=== PATIENT | female | born 1940 | race Caucasian/White ===

== ENCOUNTER → 2017-12-18 15:38 | Outpatient (CLI) | payer MEDICARE, OTHER, SELFPAY ==
[2017-12-18 17:53] LABS: Amphetamine Urine VISTA NEGATIVE (<1000 ng/mL); Barbiturate Urine VISTA NEGATIVE (< 200 ng/mL); Benzodiazepine Urine VISTA NEGATIVE (< 200 ng/mL); Cocaine Urine VISTA NEGATIVE (< 300 ng/mL); Ecstacy Urine VISTA NEGATIVE (< 500 ng/mL); Methadone Urine VISTA NEGATIVE (< 300 ng/mL); PCP Urine VISTA NEGATIVE (< 25 ng/mL); THC Urine VISTA NEGATIVE (< 50 ng/mL); Vista UDS pH Range 8
== END ==
PROVIDERS: Family Provider Family Medicine; PCP Family Medicine; Visit Provider Anesthesiology Pain Medicine
DX: F11.20 Opioid dependence, uncomplicated (principal)
CPT/HCPCS: 80307

== ENCOUNTER → 2018-01-15 15:54 | Outpatient (CLI) | payer MEDICARE, OTHER, SELFPAY ==
[2018-01-15 17:55] LABS: Amphetamine Urine VISTA NEGATIVE (<1000 ng/mL); Barbiturate Urine VISTA NEGATIVE (< 200 ng/mL); Benzodiazepine Urine VISTA NEGATIVE (< 200 ng/mL); Cocaine Urine VISTA NEGATIVE (< 300 ng/mL); Ecstacy Urine VISTA NEGATIVE (< 500 ng/mL); Methadone Urine VISTA NEGATIVE (< 300 ng/mL); PCP Urine VISTA NEGATIVE (< 25 ng/mL); THC Urine VISTA NEGATIVE (< 50 ng/mL); Vista UDS pH Range 8
== END ==
PROVIDERS: Family Provider Family Medicine; PCP Family Medicine; Visit Provider Anesthesiology Pain Medicine
DX: F11.20 Opioid dependence, uncomplicated (principal)
CPT/HCPCS: 80307

== ENCOUNTER → 2018-04-27 17:06 | Outpatient (CLI) | payer MEDICARE, OTHER, SELFPAY | PROVIDERS: Family Provider Family Medicine; PCP Family Medicine; Visit Provider Anesthesiology Pain Medicine | DX: M54.2 Cervicalgia (principal) | CPT/HCPCS: 72040; 72050 ==

== ENCOUNTER 2018-10-04 08:27 | Inpatient (IN) | payer MEDICARE, OTHER, SELFPAY ==
[2018-10-04] VITALS (12 sets, daily range): BP systolic 154–171; BP diastolic 78–121; PULSE 65–123; RESP 15–17; TEMP 36.3–37; O2SAT 94–98; BMI 22.8; BMI 21.0
--- NOTE | 2018-10-04 08:55 | ED.VISSUMM ---
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 chronic nasal congestion for 2 weeks and a slight cough, history of renal failure resolved in January 2018 related to the use of Celebrex now she states she is not on dialysis she is making normal amounts of urine, she has had no fever no chest or abdominal pain no numbness weakness paresthesias, also reports that he feels she is losing weight because she simply will need the patient states she is not hungry with no antibiotics no history of exposure to tainted food sick individuals or antibiotics Physical Examination: [] v signs are within normal range General, no distress resting comfortably HEENT is generally unremarkable her nose is congested The neck is supple no adenopathy Cardiovascular, regular rate and rhythm Lungs, clear bilateral Abdomen, soft nontender Extremities, no clubbing cyanosis or edema Neurologic, awake alert answering questions appropriately moving all 4 extremities Test Results: [] Emergency Department Course and Treatment: [] Really has an unremarkable exam she has no specific complaints given her age and her complaints screening labs are obtained IV fluids she is having no diarrhea now she does not believe she can provide a stool sample Treatment Plan: [] His white count 14,000, her potassium 2.9, her calcium returns at 5.4, her magnesium returns at 0.5 she received IV fluids, she is resting company bed she states she is feeling better I discussed all the above with the patient and her we discussed if she has a history of electrolyte abnormalities she indicates she does not believe so other than to report she is had high potassiums in the past, she again is feeling better I discussed with her inpatient versus outpatient management she does not wish to be admitted to the hospital she wants to go home she prefers outpatient management, I gave her a trial of oral electrolyte supplementation which she took without difficulty and then as an additional measure she received IV calcium 2 g, magnesium 2 g and have explained to the need to follow with her outpatient providers to have all the above checked and she states she will do so, with regards to the diarrhea she has had no significant symptoms here in the department she will stay in a bland diet and follow-up with her physicians for that process as well Disposition: [] Home stable declined admission Impression: [] Diarrhea improved, multiple electrolyte abnormalities, history of renal failure resolved no longer on dialysis Addendum while the patient was receiving her IV replacement electrolytes she went into a heart rate about 110, appeared irregular, EKG was obtained and showed A. fib rate 90 she has no known history of A. fib she has seen Dr. Wylie german instructor in the [facility] and indicates she is never been told she has any significant heart disease Given what might be paroxysmal A. fib in the multiple elect light abnormalities I discussed admission with her again she is now agreeable to being admitted for further management of all the above conditions, I will page the hospitalist discussed the case with them To add to final diagnosis paroxysmal atrial fibrillation This note was generated with [employer] dictation software. It may contain incorrect words, spelling, and punctuation that were not noted in review of the chart prior to signing ED Disposition - Plan for ED Patient: Instructions: Discharge Instructions for Hypocalcemia, ED Gastroenteritis Vs Food Poison Prescriptions: Mag Oxide/D3/Turmeric Rt Xt [Magnesium-Vit D3-Turmeric Tab] 1 ea PO DAILY #14 tab Calcium Carbonate/Vitamin D3 [Calcium 500 mg-Vit D3 600 Unit] 1 ea PO BID #14 tab Referrals: Angel Casey [Primary Care Provider] - Additional Instructions: These follow-up with all of your outpatient providers related to the low calcium and low magnesium minerals and your blood return for change in symptoms, a vitamin D level was ordered it is not returned ask your providers to check this level as well
[2018-10-04] MEDS: 0.9% Normal Saline 1,000 ML 125 ML IV (09:02)
--- NOTE | 2018-10-04 09:02 | RAD_ITS ---
STUDY: X-RAY CHEST REASON FOR EXAM: Female, 77 years old. Diarrhea x3 days. TECHNIQUE: AP upright portable view. COMPARISON: 05/17/2016. FINDINGS: The lungs are clear and expanded. There is no demonstrated pleural abnormality. Normal size heart. Normal mediastinum and karly. Normal visualized pulmonary arteries. Normal visualized aortic arch and descending thoracic aorta. PMMA cast across the upper T12 compression fracture is presumably from previous kyphoplasty. Normal visualized ribs, clavicles, and shoulders. There is no demonstrated abnormality of the visualized soft tissue structures of the upper abdomen. RAD/Chest 1 View IMPRESSION: 1. No acute cardiopulmonary pathology. 2. Old compression fracture of the upper T12 vertebral body containing PMMA cast from previous kyphoplasty is a new finding when compared to 05/17/2016. Electronically Signed: Andrea Nguyen MD at 9:27 EST , Service support ,
[2018-10-04 09:13] LABS: Bacteria 0 SEEN /hpf (None Seen); Mucous, Urine 0 SEEN /hpf (<or=2+); Red Blood Cells-Urine 0 SEEN /hpf (0-5); White Blood Cells 0 SEEN /hpf (0-5)
[2018-10-04 09:15] LABS: Absolute Lymphocyte Count 1.58 X10^3/ul (0.83-4.51); Absolute Neutrophil Count 11.5 X10^3/uL (2.0-7.7); Basophil# 0.05 X10^3/uL; Basophil% 0.4 % (0-1); Eosinophil# 0.11 X10^3/uL; Eosinophils% 0.8 % (0-5); Hematocrit 34.6 % (37-47); Hemoglobin 10.8 g/dl (12.0-15.0); Lymphocyte # 1.58 X10^3/ul (4.0); Lymphocyte % 11.2 % (19-41); Mean Corp Hgb Conc 31.2 g/gl (32-36); Mean Corpuscular Hgb 30.7 pg (27.0-32.0); Mean Corpuscular Volume 98.3 fL (81-99); Mean Platelet Vol. 9.9 fl (6.2-12.0); Monocyte% 5.7 % (0-10); Neutrophil # 11.49 X10^3/uL (2.7-7.7); Neutrophil % 81.1 % (47-70); POSITIVE COUNT NO; POSITIVE DIFFERENTIAL NO; POSITIVE MORPHOLOGY NO; Platelet Count 409 K/mm3 (150-450); RBC Distribution Width CV 12.4 % (11.6-14.6); RBC Distribution Width SD 44.1 fl (35.1-43.9); Red Blood Count 3.52 M/mm3 (4.2-5.4); White Blood Count 14.2 K/mm3 (4.4-11.0)
[2018-10-04 09:32] LABS: AST(SGOT) 22 U/L (15-37); Alanine Aminotransfer ALT/SGPT 16 U/L (13-56); Albumin, Serum 2.5 g/dL (3.2-5.0); Alkaline Phosphatase 72 U/L (45-117); Anion Gap 17 (5-15); BUN 40 mg/dL (7-18); BUN/Creat Ratio 12.5 RATIO (10-20); Calcium,Total 5.4 mg/dL (8.5-10.1); Chloride 115 mmol/L (98-107); EST Glomerular Filtration Rate 15 mL/min (>60); Est Glom Filt Rate - Afr Amer 18 mL/min (>60); Estimated Creatinine Clearance 11.52 ml/min; Globulin 4.7 g/dL (2.2-4.2); Glucose 129 mg/dL (74-106); Lipase 599 U/L (73-393); Potassium 2.9 mmol/L (3.5-5.1); Protein, Total 7.2 g/dL (6.4-8.2); Sodium Level 146 mmol/L (136-145)
[2018-10-04 09:33] LABS: Color, Urine Yellow (Yellow); Glucose, Dipstick Normal (Normal); Ketone-Dipstick Negative (Negative); Leukocyte Esterase-Dipstick 100 /ul (Negative); Nitrite-Dipstick Negative (Negative); Occult Blood-Urine 25 /ul (Negative); Protein-Dipstick 100 mg/dl (Negative); Urine Bilirubin Dipstick Negative (Negative); Urine Clarity Clear (Clear); Urine Urobilinogen Normal (Normal)
[2018-10-04 09:34] LABS: Squamous Epithelial Cells - UA 0-5 SEEN /hpf (5-10)
[2018-10-04] MEDS: Calcium Carbonate 500 MG Tablet 1000 MG PO (10:10)
[2018-10-04 10:23] LABS: Magnesium 0.5 mg/dL (1.6-2.6)
[2018-10-04] MEDS: LORazepam 0.5 MG Tablet PO (10:56)
[2018-10-04] MEDS: Magnesium Oxide 400 MG Tablet PO ×2 (10:56→17:09)
--- NOTE | 2018-10-04 11:09 | ED.DEP ---
ED Disposition - Plan for ED Patient: Instructions: ED Gastroenteritis Vs Food Poison, Discharge Instructions for Hypocalcemia Prescriptions: Mag Oxide/D3/Turmeric Rt Xt [Magnesium-Vit D3-Turmeric Tab] 1 ea PO DAILY #14 tab Calcium Carbonate/Vitamin D3 [Calcium 500 mg-Vit D3 600 Unit] 1 ea PO BID #14 tab Referrals: Angel Casey [Primary Care Provider] - Additional Instructions: These follow-up with all of your outpatient providers related to the low calcium and low magnesium minerals and your blood return for change in symptoms, a vitamin D level was ordered it is not returned ask your providers to check this level as well
--- NOTE | 2018-10-04 11:56 | EKG12_ITS ---
Test Reason : IRREGULAR HR Blood Pressure : / mmHG Vent. Rate : 087 BPM Atrial Rate : 105 BPM P-R Int : 000 ms QRS Dur : 074 ms QT Int : 424 ms P-R-T Axes : 000 -34 041 degrees QTc Int : 510 ms Normal sinus rhythm with Premature atrial complexes Left axis deviation Prolonged QT Abnormal ECG Confirmed by ZAYRA FERREIRA, GRACE ([id number]), subeditor SHIV LEARY ([id number]) on 10/07/2018 1:39:07 PM Referred By: WILLI Confirmed By:GRACE IVERSON MD
--- NOTE | 2018-10-04 13:03 | PCM.HP.STD ---
Problem List (1) Generalized weakness Status: Acute (2) Nausea & vomiting Status: Acute Qualifiers: Vomiting type: unspecified Vomiting Intractability: non-intractable Qualified Code(s): R11.2 - Nausea with vomiting, unspecified (3) End stage renal disease Status: Chronic (4) Hypertension Status: Chronic (5) Osteoarthritis Status: Chronic History of Present Illness Date of Admission: 10/04/18 Chief Complaint: Generalized weakness The patient is a 77 year old F past medical history significant for end-stage renal disease previously on dialysis taking off following improvement in her kidney function, who presents with 2-week history of progressive generalized weakness. Patient reports feeling sick with intermittent nausea and vomiting as well as diarrhea over the past 2-week.. Patient who was with her in the emergency department confirmed the above. Patient has apparently not been able to ambulate. In view of the progressive nature of her symptoms presented to the emergency department. Patient was found to have significant electrolyte abnormalities including hypomagnesemia, hypokalemia as well as hypocalcemia. Was being resuscitated in the emergency department patient went into A. fib with RVR. Past Medical History Past Medical History (Chronic Problems): Chronic Problems Osteoarthritis (Chronic) Hypertension (Chronic) End stage renal disease (Chronic) Allergies amoxicillin [Amoxicillin] Allergy (Verified 10/04/18 09:02) Other celecoxib [From Celebrex] Allergy (Verified 10/04/18 09:02) Low red blood cells Penicillins Allergy (Verified 10/04/18 09:02) Other aspirin Adverse Reaction (Verified 10/04/18 09:02) Other codeine Adverse Reaction (Verified 10/04/18 09:02) Other Home Medications: Ambulatory Orders Medication Instructions Recorded B Complex W-C No.20/Folic Acid 1 mg PO DAILY 06/15/14 [Triphrocaps Softgel] Omeprazole [Prilosec] 20 mg PO DAILY 06/16/14 Simvastatin [Zocor] 20 mg PO QHS 06/16/14 Azelastine HCl [Astelin] 1 spray NASAL BID 07/30/15 Oxycodone HCl/Acetaminophen 1 tablet PO BID PRN PRN 07/30/15 [Percocet 10-325 mg Tablet] traZODone [Desyrel] 50 mg PO QHS 07/30/15 Albuterol Inhaler [Ventolin Hfa] 2 puff INHALATION Q4H PRN PRN #1 05/17/16 inhaler Calcium Acetate 667 mg PO TID 10/04/18 Calcium Carbonate/Vitamin D3 1 ea PO BID #14 tab 10/04/18 [Calcium 500 mg-Vit D3 600 Unit] Clonidine HCl [Catapres] 0.1 mg PO QHS 10/04/18 Denosumab [Prolia] 60 mg SQ X1 10/04/18 Ipratropium [place] 0.06% 2 spray NASAL DAILY 10/04/18 [ATROVENT NASAL SPRAY (g)] Mag Oxide/D3/Turmeric Rt Xt 1 ea PO DAILY #14 tab 10/04/18 [Magnesium-Vit D3-Turmeric Tab] Surgical History: hysterectomy, - - Fistula placed in left arm bilateral knee replacements Psychiatric History: Anxiety INFORMATION SECURITY ARCHITECT History: No pertinent INFORMATION SECURITY ARCHITECT history Smoking Status: Never smoker - *Family History Maternal History Items: - - of old age Paternal History Items: - - of old age Review of Systems Constitutional: Reports: Anorexia, Malaise, Weakness, Fatigue HEENT: Denies: Head Aches, Sinus Congestion, Sinus Drainage Cardiovascular: Denies: Chest Pain, Orthopnea, Palpitations, Paroxysmal Noc. Dyspnea Respiratory: Denies: Cough, Shortness of breath at rest, Shortness of breath upon exertion, Sputum production Gastrointestinal: Reports: Diarrhea, Nausea, Vomiting Genitourinary: Denies: Dysuria, Frequency, Hematuria, Urgency Musculoskeletal: Reports: Joint Pain Neurological: Denies: Focal weakness, Numbness, Tingling Psychiatric: Denies: Homicidal Ideations, Suicidal Ideations Hematologic/ Lymphatic: Denies: Easy Bruising, Easy Bleeding VTE Information - Inpt Only VTE Present on Admission: No VTE Mechan Device Prophylaxis: None VTE Pharm Prophylaxis ordered?: Yes Objective: GENERAL: cooperative HEENT: Atraumatic; moist oral mucosa EYES; Anicteric, Normal Conjunctiva NECK; supple, normal thyroid, no distended JVD. RESPIRATORY: Diminished to auscultation bilaterally, CARDIOVASCULAR: Regular S1 S2, no audible murmurs GI: soft, non-tender, normoactive bowel sounds, : No Renal angle tenderness; EXTREMITIES: No edema, no clubbing, no cyanosis. MUSCULOSKELETAL: No Joint Tenderness; no muscle waisting NEURO: Awake; no lateralizing signs. SKIN: No Rash PSYCH; Normal affect - Physical Exam Vital Signs Temp Pulse Resp BP Pulse Ox 97.7 F L 87 17 161/103 H 96 10/04/18 12:00 10/04/18 12:00 10/04/18 12:00 10/04/18 12:00 10/04/18 12:00 Oxygen Delivery Method Room Air Weight: 49.579 kg Body Mass Index (BMI) 22.8 Microbiology Past 72 Hours 10/04/18 09:55 C. difficile DNA Amplification - Final Stool Laboratory Tests Past 24 Hrs 10/04/18 10/04/18 10/04/18 09:00 09:00 09:00 WBC 14.2 H RBC 3.52 L Hgb 10.8 L Hct 34.6 L MCV 98.3 MCH 30.7 MCHC 31.2 L RDW 12.4 RDW Differential 44.1 H Plt Count 409 MPV 9.9 Immature Gran % (Auto) 0.800 Neut % (Auto) 81.1 H Lymph % (Auto) 11.2 L [place] % (Auto) 5.7 Eos % (Auto) 0.8 Baso % (Auto) 0.4 Absolute Neuts (auto) 11.5 H Absolute Lymphs (auto) 1.58 Total Counted Not Reportable Sodium 146 H Potassium 2.9 L Chloride 115 H Carbon Dioxide 14.0 L Anion Gap 17 H BUN 40 H Creatinine 3.20 H Estim Creat Clear Calc 11.52 Est GFR (MDRD) Af Amer 18 L Est GFR (MDRD) Non-Af 15 L BUN/Creatinine Ratio 12.5 Glucose 129 H Calcium 5.4 L* Magnesium 0.5 L* Total Bilirubin 0.20 Direct Bilirubin 0.10 AST 22 ALT 16 Alkaline Phosphatase 72 Total Protein 7.2 Albumin 2.5 L Globulin 4.7 H Lipase 599 H Vit D 1,25-Dihydroxy Urine Color Urine Clarity Urine pH Ur Specific [place] Urine Protein Urine Glucose (UA) Urine Ketones Urine Occult Blood Urine Nitrite Urine Bilirubin Urine Urobilinogen Ur Leukocyte Esterase Urine RBC Urine WBC Ur Squamous Epith Cells Urine Bacteria Urine Mucus 10/04/18 10/04/18 09:05 11:23 WBC RBC Hgb Hct MCV MCH MCHC RDW RDW Differential Plt Count MPV Immature Gran % (Auto) Neut % (Auto) Lymph % (Auto) [place] % (Auto) Eos % (Auto) Baso % (Auto) Absolute Neuts (auto) Absolute Lymphs (auto) Total Counted Sodium Potassium Chloride Carbon Dioxide Anion Gap BUN Creatinine Estim Creat Clear Calc Est GFR (MDRD) Af Amer Est GFR (MDRD) Non-Af BUN/Creatinine Ratio Glucose Calcium Magnesium Total Bilirubin Direct Bilirubin AST ALT Alkaline Phosphatase Total Protein Albumin Globulin Lipase Vit D 1,25-Dihydroxy Pending Urine Color Yellow Urine Clarity Clear Urine pH 6.0 Ur Specific [place] 1.010 Urine Protein 100 H Urine Glucose (UA) Normal Urine Ketones Negative Urine Occult Blood 25 H Urine Nitrite Negative Urine Bilirubin Negative Urine Urobilinogen Normal Ur Leukocyte Esterase 100 H Urine RBC 0 SEEN Urine WBC 0 SEEN Ur Squamous Epith Cells 0-5 SEEN Urine Bacteria 0 SEEN Urine Mucus 0 SEEN Assessment/Plan All Active Problems Nausea & vomiting (Acute) Generalized weakness (Acute) 87-year-old lady with multiple comorbidities presented with progressive generalized weakness found to have significant electrolyte abnormalities including hypokalemia hypomagnesemia hypocalcemia and worsening of her kidney function. Went into A. fib with RVR in the ED admitted to monitored bed for subsequent management 1. New onset A. fib with RVR. Patient has been admitted to a monitored bed. As part of her management 2D echo was ordered in addition to serial cardiac enzymes and TSH. Patient was started on systemic anticoagulation. [id number] 2 score is greater than 2(3) is therefore a candidate for long-term systemic anticoagulation to prevent strokes 2. Adult failure to thrive: Admitted to a monitored bed in view of above reasons requested for PT OT and social media executive to assist with discharge planning 3. End-stage renal disease patient was previously on chronic dialysis which was discontinued in view of improvement of her kidney function her baseline creatinine on record from 2014 was patient currently being resuscitated with IV fluids with monitoring of electrolyte 4. Hypokalemia from her chronic diarrhea repleted per protocol 5. Hypomagnesemia corrected per protocol 6. Hypocalcemia corrected per protocol 7. Severe generalized osteoarthritis pain meds as needed 8. Osteoporosis patient is Denosumab above every 6 monthly 9. Dyslipidemia-patient is on statin therapy, continued at home dose 10. Hypertension-blood pressure controlled, home medications continued with dose adjustment as needed 11. Depression with anxiety on trazodone at night 12. DVT prophylaxis on systemic anticoagulation for management of her new onset A. fib Advance planning; did discuss with the patient and family again () regarding advanced directives as well as CODE STATUS. Did explain the various scenarios involved ( FULL CODE, DNR CCA, DNR CCA with no intubation, and DNR CC and what each meant) patient elected to be DNR CCA no intubation. Order was placed. Time spent on discussion 18 minutes. Code Visit Inpatient E&M: 92145 Init Hosp L3 Procedures: 06404 Advncd Care Plan 30 Min
--- NOTE | 2018-10-04 13:59 | ECHOD_ITS ---
Reason For Study: Afib/Flutter Procedure This was a 2D Doppler, Color Flow transthoracic echocardiogram. Exam performed portable in patient room. Left Ventricle Normal LV size. Left ventricular systolic function is normal. The estimated ejection fraction is 60 %. Stage 1 diastolic dysfunction. No regional wall motion abnormalities noted. Right Ventricle Normal RV size. Normal systolic function. Atria Normal left atrium. Normal right atrium. Mitral Valve Normal mitral valve. Mild (1+) eccentric mitral valve insufficiency. Tricuspid Valve Normal tricuspid valve. Mild (1+) tricuspid valve insufficiency. Pulmonary artery systolic pressure is 28 mmHg. Aortic Valve Trisinus/trileaflet aortic valve. Mild focal aortic valve calcification. Pulmonic Valve Normal pulmonic valve. Great Vessels Normal aortic root. The pulmonary artery is normal size. Normal inferior vena cava. Pericardium/Pleural No pericardial effusion. MMode/2D Measurements & Calculations LVIDd: 4.2 cm IVSd: 1.2 cm Ao root diam: 3.7 cm LVIDs: 2.1 cm LVPWd: 0.94 cm LA dimension: 3.0 cm RVDd: 3.1 cm FS: 49.2 % LAV(MOD-sp2): 46.2 ml Time Measurements MV dec time: 0.27 sec Doppler Measurements & Calculations MV E max andry: 82.7 cm/sec Lat Peak E' Andry: 11.4 cm/sec Med Peak E' Andry: 7.2 cm/sec MV A max andry: 108.0 cm/sec E/E' lat: 7.3 E/E' med: 11.4 MV E/A: 0.77 MV V2 max: 117.0 cm/sec MV P1/2t max andry: 103.4 cm/sec Ao V2 max: 133.3 cm/sec MV max P.5 mmHg MV P1/2t: 63.1 msec Ao max P.1 mmHg MV V2 mean: 73.1 cm/sec MV mean P.4 mmHg MV dec slope: 480.4 cm/sec2 MV V2 VTI: 29.0 cm MVA(P1/2t): 3.5 cm2 LV V1 max: 117.8 cm/sec PA V2 max: 126.2 cm/sec TR max andry: 244.6 cm/sec LV V1 max P.6 mmHg TR max P.9 mmHg Interpretation Summary Normal LV size. Left ventricular systolic function is normal. The estimated ejection fraction is 60 %. Stage 1 diastolic dysfunction. Mild (1+) eccentric mitral valve insufficiency. Mild (1+) tricuspid valve insufficiency. Pulmonary artery systolic pressure is 28 mmHg. Ordering Physician: Gutierrez You Performed By: Dewey Lisa RCS
[2018-10-04 14:01] LABS: Phosphorus 5.2 mg/dL (2.5-4.9)
[2018-10-04 14:54] LABS: Thyroid Stim Hormone (TSH) 0.41 uIU/mL (0.358-3.74)
[2018-10-04] MEDS: Magnesium Sulfate 4gm/100mL 4 GM/100 ML IV.SOLN. IV (16:06)
[2018-10-04] MEDS: Enoxaparin 60 MG/0.6 ML Syringe 50 MG SC (16:15)
[2018-10-04] MEDS: Calcium Acetate 667 MG Capsule PO (17:09)
[2018-10-04 21:12] LABS: Anion Gap 15 (5-15); BUN 37 mg/dL (7-18); BUN/Creat Ratio 13.1 RATIO (10-20); Calcium,Total 6.2 mg/dL (8.5-10.1); Chloride 115 mmol/L (98-107); Creatinine, Serum 2.82 mg/dL (0.55-1.02); EST Glomerular Filtration Rate 17 mL/min (>60); Est Glom Filt Rate - Afr Amer 21 mL/min (>60); Estimated Creatinine Clearance 12.05 ml/min; Glucose 176 mg/dL (74-106); Potassium 4.1 mmol/L (3.5-5.1); Sodium Level 143 mmol/L (136-145)
[2018-10-04] MEDS: cloNIDine HCl 0.1 MG Tablet PO (21:36)
[2018-10-04] MEDS: traZODone 50 MG Tablet PO (21:36)
[2018-10-04] MEDS: Atorvastatin Calcium 10 MG Tablet PO (21:36)
[2018-10-04] MEDS: Azelastine HCl NASAL.SRY 1 SPRAY NASAL (21:37)
[2018-10-05] VITALS (11 sets, daily range): BP systolic 149–163; BP diastolic 90–107; PULSE 71–92; RESP 14–18; TEMP 36.2–37.3; O2SAT 94–97
[2018-10-05 06:14] LABS: Hematocrit 29.6 % (37-47); Hemoglobin 9.5 g/dl (12.0-15.0); Mean Corp Hgb Conc 32.1 g/gl (32-36); Mean Corpuscular Hgb 31.5 pg (27.0-32.0); Mean Platelet Vol. 10.3 fl (6.2-12.0); Platelet Count 375 K/mm3 (150-450); RBC Distribution Width CV 11.6 % (11.6-14.6); RBC Distribution Width SD 39.8 fl (35.1-43.9); Red Blood Count 3.02 M/mm3 (4.2-5.4); White Blood Count 12.2 K/mm3 (4.4-11.0)
[2018-10-05 06:17] LABS: Scan Indicated on CBC? Y/N NO
[2018-10-05 06:38] LABS: Anion Gap 14 (5-15); BUN 35 mg/dL (7-18); BUN/Creat Ratio 14.2 RATIO (10-20); Calcium,Total 6.4 mg/dL (8.5-10.1); Chloride 118 mmol/L (98-107); Creatinine, Serum 2.47 mg/dL (0.55-1.02); EST Glomerular Filtration Rate 20 mL/min (>60); Est Glom Filt Rate - Afr Amer 24 mL/min (>60); Estimated Creatinine Clearance 13.75 ml/min; Glucose 124 mg/dL (74-106); Magnesium 2.7 mg/dL (1.6-2.6); Potassium 4.3 mmol/L (3.5-5.1); Sodium Level 144 mmol/L (136-145)
--- NOTE | 2018-10-05 07:50 | PCM.PROGNOTE ---
Subjective: Chief complaint: Follow-up after admission for new onset A. fib with RVR, acute diarrheal illness, hypokalemia, hypocalcemia and hypomagnesemia. Patient seen and examined. No acute events overnight. She is still complaining of diarrhea, had 2 episodes of diarrhea last night, watery stool without blood. She denied abdominal pain, nausea or vomiting. Denies fever chills. Denied chest pain, shortness of breath, dizziness or lightheadedness. She returned back to sinus rhythm, vital signs are stable. - Physical Exam General: Alert, Oriented x3, Cooperative, No apparent distress HEENT: Atraumatic, PERRLA, EOMI, Normocephalic Oral: Moist Mucosa, No Gingival or Mucosal Lesions/ Ulcerations Neck: Supple, No JVD, Negative Carotid Bruits, Trachea Midline, Thyroid Normal Size and Texture Lungs: Clear to auscultation, No rhonchi, No wheeze, No rales, Diminished Cardiovascular: Regular rate, Regular Rhythm, Normal S1, Normal S2, PMI Normal Abdomen: Bowel Sounds Present, Soft, Non Tender, Non-Distended, No Hepato-splenomegaly Extremities: No clubbing, No cyanosis, No edema Skin: No rashes, No breakdown Lymphatic: No Cervical, Supraclavicular, or Inguinal Adenopathy Neurological: Cranial nerves II-XII grossly intact, Motor Exam 5/5 strength throughout Psych/Mental Status: Normal Affect, Appropriate, Alert and oriented to time, place, person, mood and affect Vital Signs Temp Pulse Resp BP Pulse Ox 97.1 F L 87 14 154/97 H 96 10/05/18 03:31 10/05/18 07:03 10/05/18 03:31 10/05/18 03:31 10/05/18 03:31 Oxygen Delivery Method Room Air Weight: 100 lb 11.2 oz Body Mass Index (BMI) 21.0 Intake and Output for Last 24 Hours 10/03/18 10/04/18 10/05/18 23:59 23:59 23:59 Intake Total 1667.2 / 1667.2 597 / 597 Balance 1667.2 / 1667.2 597 / 597 Microbiology Past 72 Hours 10/04/18 09:55 C. difficile DNA Amplification - Final Stool Laboratory Tests Past 24 Hrs 10/04/18 10/04/18 10/04/18 09:00 09:00 09:00 WBC 14.2 H RBC 3.52 L Hgb 10.8 L Hct 34.6 L MCV 98.3 MCH 30.7 MCHC 31.2 L RDW 12.4 RDW Differential 44.1 H Plt Count 409 MPV 9.9 Immature Gran % (Auto) 0.800 Neut % (Auto) 81.1 H Lymph % (Auto) 11.2 L [place] % (Auto) 5.7 Eos % (Auto) 0.8 Baso % (Auto) 0.4 Absolute Neuts (auto) 11.5 H Absolute Lymphs (auto) 1.58 Total Counted Not Reportable Sodium 146 H Potassium 2.9 L Chloride 115 H Carbon Dioxide 14.0 L Anion Gap 17 H BUN 40 H Creatinine 3.20 H Estim Creat Clear Calc 11.52 Est GFR (MDRD) Af Amer 18 L Est GFR (MDRD) Non-Af 15 L BUN/Creatinine Ratio 12.5 Glucose 129 H Calcium 5.4 L* Phosphorus Magnesium 0.5 L* Total Bilirubin 0.20 Direct Bilirubin 0.10 AST 22 ALT 16 Alkaline Phosphatase 72 Troponin I Total Protein 7.2 Albumin 2.5 L Globulin 4.7 H Lipase 599 H Vit D 1,25-Dihydroxy TSH Urine Color Urine Clarity Urine pH Ur Specific [place] Urine Protein Urine Glucose (UA) Urine Ketones Urine Occult Blood Urine Nitrite Urine Bilirubin Urine Urobilinogen Ur Leukocyte Esterase Urine RBC Urine WBC Ur Squamous Epith Cells Urine Bacteria Urine Mucus 10/04/18 10/04/18 10/04/18 09:00 09:05 11:23 WBC RBC Hgb Hct MCV MCH MCHC RDW RDW Differential Plt Count MPV Immature Gran % (Auto) Neut % (Auto) Lymph % (Auto) [place] % (Auto) Eos % (Auto) Baso % (Auto) Absolute Neuts (auto) Absolute Lymphs (auto) Total Counted Sodium Potassium Chloride Carbon Dioxide Anion Gap BUN Creatinine Estim Creat Clear Calc Est GFR (MDRD) Af Amer Est GFR (MDRD) Non-Af BUN/Creatinine Ratio Glucose Calcium Phosphorus 5.2 H Magnesium Total Bilirubin Direct Bilirubin AST ALT Alkaline Phosphatase Troponin I Total Protein Albumin Globulin Lipase Vit D 1,25-Dihydroxy Pending TSH Urine Color Yellow Urine Clarity Clear Urine pH 6.0 Ur Specific [place] 1.010 Urine Protein 100 H Urine Glucose (UA) Normal Urine Ketones Negative Urine Occult Blood 25 H Urine Nitrite Negative Urine Bilirubin Negative Urine Urobilinogen Normal Ur Leukocyte Esterase 100 H Urine RBC 0 SEEN Urine WBC 0 SEEN Ur Squamous Epith Cells 0-5 SEEN Urine Bacteria 0 SEEN Urine Mucus 0 SEEN 10/04/18 10/04/18 10/04/18 14:14 16:45 20:20 WBC RBC Hgb Hct MCV MCH MCHC RDW RDW Differential Plt Count MPV Immature Gran % (Auto) Neut % (Auto) Lymph % (Auto) [place] % (Auto) Eos % (Auto) Baso % (Auto) Absolute Neuts (auto) Absolute Lymphs (auto) Total Counted Sodium 143 Potassium 4.1 Chloride 115 H Carbon Dioxide 13.0 L Anion Gap 15 BUN 37 H Creatinine 2.82 H Estim Creat Clear Calc 12.05 Est GFR (MDRD) Af Amer 21 L Est GFR (MDRD) Non-Af 17 L BUN/Creatinine Ratio 13.1 Glucose 176 H Calcium 6.2 L* Phosphorus Magnesium Total Bilirubin Direct Bilirubin AST ALT Alkaline Phosphatase Troponin I 0.029 0.040 Total Protein Albumin Globulin Lipase Vit D 1,25-Dihydroxy TSH 0.41 Urine Color Urine Clarity Urine pH Ur Specific [place] Urine Protein Urine Glucose (UA) Urine Ketones Urine Occult Blood Urine Nitrite Urine Bilirubin Urine Urobilinogen Ur Leukocyte Esterase Urine RBC Urine WBC Ur Squamous Epith Cells Urine Bacteria Urine Mucus 10/04/18 10/05/18 10/05/18 20:20 05:40 05:40 WBC 12.2 H RBC 3.02 L Hgb 9.5 L Hct 29.6 L MCV 98.0 MCH 31.5 MCHC 32.1 RDW 11.6 RDW Differential 39.8 Plt Count 375 MPV 10.3 Immature Gran % (Auto) Neut % (Auto) Lymph % (Auto) [place] % (Auto) Eos % (Auto) Baso % (Auto) Absolute Neuts (auto) Absolute Lymphs (auto) Total Counted Sodium 144 Potassium 4.3 Chloride 118 H Carbon Dioxide 12.0 L Anion Gap 14 BUN 35 H Creatinine 2.47 H Estim Creat Clear Calc 13.75 Est GFR (MDRD) Af Amer 24 L Est GFR (MDRD) Non-Af 20 L BUN/Creatinine Ratio 14.2 Glucose 124 H Calcium 6.4 L* Phosphorus Magnesium 2.7 H Total Bilirubin Direct Bilirubin AST ALT Alkaline Phosphatase Troponin I 0.045 Total Protein Albumin Globulin Lipase Vit D 1,25-Dihydroxy TSH Urine Color Urine Clarity Urine pH Ur Specific [place] Urine Protein Urine Glucose (UA) Urine Ketones Urine Occult Blood Urine Nitrite Urine Bilirubin Urine Urobilinogen Ur Leukocyte Esterase Urine RBC Urine WBC Ur Squamous Epith Cells Urine Bacteria Urine Mucus Clinical Impression(s) from Imaging Studies Chest X-Ray 10/04/18 09:02 IMPRESSION: 1. No acute cardiopulmonary pathology. 2. Old compression fracture of the upper T12 vertebral body containing PMMA cast from previous kyphoplasty is a new finding when compared to 05/17/2016. Electronically Signed: Andrea Nguyen MD at 9:27 EST , Service support , Medical Necessity - Tobacco Use Smoking Status: Never smoker Assessment/Plan All Active Problems Nausea & vomiting (Acute) Generalized weakness (Acute)
[2018-10-05] MEDS: Folic Acid/Vitamin B Comp W-C 1 Capsule 1 CAP PO (09:09)
[2018-10-05] MEDS: Calcium Acetate 667 MG Capsule PO ×3 (09:09→18:03)
[2018-10-05] MEDS: Magnesium Oxide 400 MG Tablet PO ×2 (09:09→18:04)
[2018-10-05] MEDS: Ipratropium Bromide 0.06% NASAL SPRAY 2 SPRAY NASAL (09:10)
[2018-10-05] MEDS: Azelastine HCl NASAL.SRY 1 SPRAY NASAL ×2 (09:10→22:32)
[2018-10-05] MEDS: Enoxaparin 60 MG/0.6 ML Syringe 50 MG SC (09:11)
[2018-10-05] MEDS: Pantoprazole Sodium 20 MG Tablet PO (09:12)
--- NOTE | 2018-10-05 12:30 | CASEMGMT ---
RN SONNY ACURA SALES CONSULTANT CM to room to meet with patient for initial transition planning/care coordination assessment. RN SONNY introduced self and role at [facility].? Pt voices understanding and consents to assessment at this time.? Pt resting in bed in no distress at this time.? Pt is A/O at this time and answers all questions appropriately.?? Care providers, pharmacy, and demographics verified at this time. PCP: Angel Cano Specialists: Dr Wylie, [employer] [facility] in [place]. Hx of going to [facility] for dialysis but improved and no longer getting dialysis. Sees a mat maker in [place]. States she does not remember her name. Preferred Pharmacy: [facility] on day of discharge. Insurance: MCR, [employer] Prescription Benefit:? [employer] Living Will/HPOA:? does not have LW or HCPOA. Is interested in more information and talking with SW. AD info packet given and Nancy QUIÑONEZ notified. Living Arrangements: Lives with her . was independent @ home up until becoming ill past couple of weeks. Transportation: Pt states her drives and states no transportation concerns at this time.? DME: has the following DME:?Shower chair, raised toilet seat, cane, walker, rollator, W/C. has all of this DME from past knee surgery and does not use any of it except the rollator that she uses for longer distances. ?Pt states no need for further DME at this time.? HHC/SNF: Has never used HHC or been to a SNF. PT/OT evals reviewed. No further therapy recommended. Pt wishes to return home and states has no concerns with going home at time of discharge.? CM to follow for further discharge planning/needs.? Pt voices no further concerns/needs at this time.? Advised pt to ask for CM if any further questions/concerns/needs arise.? Voices understanding. PLAN: ?Home with and discharge plans in place. Edgardo WHITTEN RN, CM
--- NOTE | 2018-10-05 14:28 | CASEMGMT ---
SW met with patient, introduced self and role at [facility]. SW went over Healthcare POA and Healthcare LW with patient. SW also gave her the Social Work rac card. She said she would likely come in at a later time to do the documents. KHANG told her if she decides she wants to do them while she is here to just ask for SW. Nancy HOWELL MSW
[2018-10-05] MEDS: Acetaminophen 325 MG Tablet 650 MG PO (18:52)
--- NOTE | 2018-10-05 20:14 | PN_ITS ---
Subjective: Patient was seen and examined today, she does not appear to be in atrial fibrillation, I reviewed her rhythm strips and EKG that was done in the [facility] yesterday and I did not detect any strips which showed atrial fib. I have canceled Dr. Reis's consultation, patient sees Dr. Wylie who is a pharmacy operations specialist in [place] on a chronic basis and she has never had a diagnosis of atrial fib. Patient's labs today showed a normal potassium, creatinine has improved to 2.47-I am not sure of her baseline creatinine, at one time, she had been receiving dialysis but this was stopped last year. She sees Dr. Obando in [place] on a chronic basis approximately once every 3 months. Patient is not sure what her baseline creatinine is. Patient's potassium today was 6.4, her magnesium was 2.7, patient's potassium was normal today. She states she has had 2 loose stools today, patient's stool studies did not indicate an infection at this time. - Physical Exam General: Alert, Oriented x3, Cooperative, No apparent distress, Well developed, Well nourished HEENT: Atraumatic, PERRLA, EOMI, Normocephalic Oral: Moist Mucosa Neck: Supple, No JVD, Negative Carotid Bruits, No Nuchal Rigidity, Trachea Midline, Thyroid Normal Size and Texture Lungs: Clear to auscultation, Normal air movement, No rhonchi, No wheeze, No rales Cardiovascular: Regular rate, Regular Rhythm, Normal S1, Normal S2, No murmurs, No Ectopic Activity, PMI Normal, No rub noted, No Gallop Abdomen: Bowel Sounds Present, Soft, Non Tender, Non-Distended, No hernias noted Extremities: No edema, Capillary Refill Less than 3 Seconds Skin: No rashes, No breakdown Musculoskeletal: No Tenderness to Palpation of Joints or Extremities Neurological: Cranial nerves II-XII grossly intact, Neuro grossly intact, Sensory exam intact to light touch and pain, Coordination normal Psych/Mental Status: Normal Affect, Appropriate, Alert and oriented to time, place, person, mood and affect Vital Signs Temp Pulse Resp BP Pulse Ox 99.2 F H 87 16 159/93 H 97 10/05/18 13:59 10/05/18 19:04 10/05/18 13:59 10/05/18 13:59 10/05/18 13:59 Oxygen Delivery Method Room Air Weight: 45 kg Body Mass Index (BMI) 21.0 Intake and Output for Last 24 Hours 10/03/18 10/04/18 10/05/18 23:59 23:59 23:59 Intake Total 1667.2 / 1667.2 2471 / 2471 Balance 1667.2 / 1667.2 2471 / 2471 Microbiology Past 72 Hours 10/04/18 09:55 Enteric Bacteriology - Final Stool 10/04/18 09:55 C. difficile DNA Amplification - Final Stool Laboratory Tests Past 24 Hrs 10/04/18 10/04/18 10/05/18 20:20 20:20 05:40 WBC 12.2 H RBC 3.02 L Hgb 9.5 L Hct 29.6 L MCV 98.0 MCH 31.5 MCHC 32.1 RDW 11.6 RDW Differential 39.8 Plt Count 375 MPV 10.3 Sodium 143 Potassium 4.1 Chloride 115 H Carbon Dioxide 13.0 L Anion Gap 15 BUN 37 H Creatinine 2.82 H Estim Creat Clear Calc 12.05 Est GFR (MDRD) Af Amer 21 L Est GFR (MDRD) Non-Af 17 L BUN/Creatinine Ratio 13.1 Glucose 176 H Calcium 6.2 L* Magnesium Troponin I 0.045 10/05/18 05:40 WBC RBC Hgb Hct MCV MCH MCHC RDW RDW Differential Plt Count MPV Sodium 144 Potassium 4.3 Chloride 118 H Carbon Dioxide 12.0 L Anion Gap 14 BUN 35 H Creatinine 2.47 H Estim Creat Clear Calc 13.75 Est GFR (MDRD) Af Amer 24 L Est GFR (MDRD) Non-Af 20 L BUN/Creatinine Ratio 14.2 Glucose 124 H Calcium 6.4 L* Magnesium 2.7 H Troponin I Medical Necessity - Tobacco Use Smoking Status: Never smoker Assessment/Plan #1 acute kidney injury-improving on fluids at this time, continue present fluid administration and recheck renal profile tomorrow #2 hypokalemia-resolved at this time #3 hypocalcemia-calcium replacement was given today, her calcium level will be rechecked tomorrow #4 PACs-no evidence of A. fib at this time, her anticoagulation was stopped, Dr. Reis's consultation was canceled #5 hypertension #6 leukocytosis-etiology unclear at this point, recheck CBC tomorrow #7 osteoarthritis-patient states that she feels almost back to normal today, she would like to return home with her at the time of discharge from the hospital. Code Visit Inpatient E&M: 49941 Subs Hosp L2
[2018-10-05] MEDS: Atorvastatin Calcium 10 MG Tablet PO (22:32)
[2018-10-05] MEDS: cloNIDine HCl 0.1 MG Tablet PO (22:32)
[2018-10-05] MEDS: traZODone 50 MG Tablet PO (22:32)
[2018-10-06] VITALS (13 sets, daily range): BP systolic 136–170; BP diastolic 79–99; PULSE 70–141; RESP 16–18; TEMP 36.8–37; O2SAT 96–99
[2018-10-06] MEDS: LORazepam 1 MG Tablet PO ×2 (01:21→22:40)
[2018-10-06] MEDS: 0.9% NaCl Peripheral Flush Adult/Peds IV (05:04)
[2018-10-06] MEDS: hydrALAZINE 20 MG/ML Vial IV (05:04)
[2018-10-06 06:02] LABS: Absolute Lymphocyte Count 1.85 X10^3/ul (0.83-4.51); Absolute Neutrophil Count 10.1 X10^3/uL (2.0-7.7); Basophil# 0.04 X10^3/uL; Basophil% 0.3 % (0-1); Eosinophil# 0.25 X10^3/uL; Eosinophils% 1.9 % (0-5); Hemoglobin 10.4 g/dl (12.0-15.0); Lymphocyte # 1.85 X10^3/ul (4.0); Lymphocyte % 13.7 % (19-41); Mean Corp Hgb Conc 30.6 g/gl (32-36); Mean Corpuscular Hgb 30.2 pg (27.0-32.0); Mean Corpuscular Volume 98.8 fL (81-99); Mean Platelet Vol. 10.3 fl (6.2-12.0); Monocyte# 1.15 X10^3/uL; Monocyte% 8.5 % (0-10); Neutrophil # 10.09 X10^3/uL (2.7-7.7); Neutrophil % 74.9 % (47-70); Platelet Count 391 K/mm3 (150-450); RBC Distribution Width CV 11.8 % (11.6-14.6); RBC Distribution Width SD 40.9 fl (35.1-43.9); Red Blood Count 3.44 M/mm3 (4.2-5.4); White Blood Count 13.5 K/mm3 (4.4-11.0)
[2018-10-06 06:15] LABS: Albumin, Serum 2.4 g/dL (3.2-5.0); Anion Gap 12 (5-15); BUN 29 mg/dL (7-18); BUN/Creat Ratio 13.9 RATIO (10-20); Calcium,Total 7.4 mg/dL (8.5-10.1); Chloride 119 mmol/L (98-107); Creatinine, Serum 2.08 mg/dL (0.55-1.02); EST Glomerular Filtration Rate 25 mL/min (>60); Est Glom Filt Rate - Afr Amer 30 mL/min (>60); Estimated Creatinine Clearance 16.09 ml/min; Glucose 115 mg/dL (74-106); Potassium 5.3 mmol/L (3.5-5.1); Sodium Level 144 mmol/L (136-145)
[2018-10-06 06:17] LABS: POSITIVE COUNT NO; POSITIVE DIFFERENTIAL NO; POSITIVE MORPHOLOGY NO
--- NOTE | 2018-10-06 07:40 | EKG12_ITS ---
Test Reason : A-FIB Blood Pressure : / mmHG Vent. Rate : 103 BPM Atrial Rate : 103 BPM P-R Int : 182 ms QRS Dur : 072 ms QT Int : 356 ms P-R-T Axes : 081 -58 050 degrees QTc Int : 466 ms Sinus tachycardia Left axis deviation Possible Anterior infarct , age undetermined Abnormal ECG When compared with ECG of 04-OCT-2018 11:57, MANUAL COMPARISON REQUIRED, DATA IS UNCONFIRMED Confirmed by ZAYRA FERREIRA, GRACE ([id number]), publications editor SHIV LEARY ([id number]) on 10/07/2018 2:09:16 PM Referred By: ALHAJI Confirmed By:GRACE IVERSON MD
--- NOTE | 2018-10-06 08:03 | PCM.PROGNOTE ---
Subjective: Chief complaint: Follow-up after admission for suspected A. fib with RVR which was ruled out, acute diarrheal illness, hypocalcemia, hypomagnesemia. Patient seen and examined. No acute events overnight. She still complains of diarrhea, had one episode of diarrhea this morning. Denies abdominal pain, nausea or vomiting. Denies fever chills. Denied chest pain, palpitation, dizziness or lightheadedness. She remained in sinus rhythm on telemetry and repeat EKG this morning revealed sinus tachycardia, rate has been around 100. Her other vital signs are stable. - Physical Exam General: Alert, Oriented x3, Cooperative, No apparent distress HEENT: Atraumatic, PERRLA, EOMI, Normocephalic Oral: Moist Mucosa, No Gingival or Mucosal Lesions/ Ulcerations Neck: Supple, No JVD, Negative Carotid Bruits, Trachea Midline, Thyroid Normal Size and Texture Lungs: Clear to auscultation, No rhonchi, No wheeze, No rales, Diminished Cardiovascular: Regular rate, Regular Rhythm, Normal S1, Normal S2, PMI Normal, Tachycardic Abdomen: Bowel Sounds Present, Soft, Non Tender, Non-Distended, No Hepato-splenomegaly Extremities: No clubbing, No cyanosis, No edema Skin: No rashes, No breakdown Lymphatic: No Cervical, Supraclavicular, or Inguinal Adenopathy Neurological: Cranial nerves II-XII grossly intact, Motor Exam 5/5 strength throughout Psych/Mental Status: Normal Affect, Appropriate, Alert and oriented to time, place, person, mood and affect Vital Signs Temp Pulse Resp BP Pulse Ox 98.5 F 100 16 169/95 H 97 10/06/18 04:06 10/06/18 06:59 10/06/18 04:06 10/06/18 04:06 10/06/18 04:06 Oxygen Delivery Method Room Air Weight: 99 lb 3.328 oz Body Mass Index (BMI) 21.0 Intake and Output for Last 24 Hours 10/04/18 10/05/18 10/06/18 23:59 23:59 23:59 Intake Total 1667.2 / 1667.2 3336 / 3336 548 / 548 Balance 1667.2 / 1667.2 3336 / 3336 548 / 548 Microbiology Past 72 Hours 10/04/18 09:05 Urine Culture - Final Urine, Clean Catch Mixed Gram Positive Organisms 10/04/18 09:55 Enteric Bacteriology - Final Stool 10/04/18 09:55 C. difficile DNA Amplification - Final Stool Laboratory Tests Past 24 Hrs 10/06/18 10/06/18 05:45 05:45 WBC 13.5 H RBC 3.44 L Hgb 10.4 L Hct 34.0 L MCV 98.8 MCH 30.2 MCHC 30.6 L RDW 11.8 RDW Differential 40.9 Plt Count 391 MPV 10.3 Immature Gran % (Auto) 0.700 Neut % (Auto) 74.9 H Lymph % (Auto) 13.7 L Steele % (Auto) 8.5 Eos % (Auto) 1.9 Baso % (Auto) 0.3 Absolute Neuts (auto) 10.1 H Absolute Lymphs (auto) 1.85 Total Counted Not Reportable Sodium 144 Potassium 5.3 H Chloride 119 H Carbon Dioxide 13.0 L Anion Gap 12 BUN 29 H Creatinine 2.08 H Estim Creat Clear Calc 16.09 Est GFR (MDRD) Af Amer 30 L Est GFR (MDRD) Non-Af 25 L BUN/Creatinine Ratio 13.9 Glucose 115 H Calcium 7.4 L Albumin 2.4 L Medical Necessity - Tobacco Use Smoking Status: Never smoker Assessment/Plan This is a 77 years old female patient presented to the emergency room because of weakness, initially was diagnosed with new onset A. fib with RVR, found to have hypokalemia, hypomagnesemia and hypocalcemia as well as physical debility, functional decline. #1 new onset A. fib with RVR: This is ruled out later. Overnight, patient remained in sinus rhythm on telemetry. Repeat EKG today again showed sinus rhythm, heart rate has been around 100. EKG from urgent reviewed, there was P waves on some leads. Cardiac enzymes are negative. 2D echocardiogram revealed ejection fraction of 60%, stage I diastolic dysfunction, pulmonary artery pressure of 28. TSH was normal. At this time, she is in sinus rhythm, heart rate has been around 80s, blood pressure slightly elevated. #2 hypokalemia/hypomagnesemia/hypocalcemia: Now she is hyperkalemic, potassium is over replaced. Today's potassium is 5.3 this morning, repeated at 1 PM and again it stayed at 5.3. EKG revealed no acute changes related to hyperkalemia. Magnesium was recent corrected. Serum calcium today is 7.4 and serum albumin is 2.4, corrected calcium for albumin today is 8.7 mg/dL. She is on calcium supplement p.o. #3 end-stage renal disease: Previously was on dialysis which was discontinued because of improvement of her kidney function. Her baseline creatinine has been around 2-4 mg. Admission creatinine is 3.2, came down to 2.08 today. Improving. She is on IV fluids. Plan to continue IV fluids, repeat BMP tomorrow morning. #4 hypertension: Blood pressure slightly elevated, continue clonidine. #5 hyperlipidemia: Continue statins. #6 depression/anxiety: Stable, continue trazodone. #7 osteoarthritis/osteoporosis: Continue calcium supplements, vitamin D is pending. #8 DVT prophylaxis: Subcu heparin. This note was generated with [employer] Auto dictation software. It may contain incorrect words, spelling, and punctuation that were not noted in checking the note before signing. Code Visit Inpatient E&M: 43385 Subs Hosp L2
[2018-10-06] MEDS: Pantoprazole Sodium 20 MG Tablet PO (08:51)
[2018-10-06] MEDS: Calcium Acetate 667 MG Capsule PO ×2 (08:51→11:47)
[2018-10-06] MEDS: Folic Acid/Vitamin B Comp W-C 1 Capsule 1 CAP PO (08:52)
[2018-10-06] MEDS: 0.9% Normal Saline 1,000 ML 100 ML IV (08:52)
[2018-10-06] MEDS: Ipratropium Bromide 0.06% NASAL SPRAY 2 SPRAY NASAL (08:52)
[2018-10-06] MEDS: Magnesium Oxide 400 MG Tablet PO ×2 (08:52→17:12)
[2018-10-06] MEDS: Azelastine HCl NASAL.SRY 1 SPRAY NASAL ×2 (08:52→22:39)
[2018-10-06] MEDS: Acetaminophen 325 MG Tablet 650 MG PO (08:54)
[2018-10-06] MEDS: Loperamide 2 MG Capsule PO (08:55)
[2018-10-06 14:31] LABS: Potassium 5.3 mmol/L (3.5-5.1)
[2018-10-06] MEDS: Sodium Polystyrene Sulfonate 15 GM/60 ML UDC PO (17:07)
[2018-10-06] MEDS: Calcium Carbonate 500 MG Tablet PO (17:11)
[2018-10-06] MEDS: 0.9% Normal Saline 1,000 ML 75 ML IV (17:13)
[2018-10-06] MEDS: traZODone 50 MG Tablet PO (22:41)
[2018-10-06] MEDS: cloNIDine HCl 0.1 MG Tablet PO (22:41)
[2018-10-06] MEDS: Atorvastatin Calcium 10 MG Tablet PO (22:42)
[2018-10-06] MEDS: PARoxetine 10 MG Tablet PO (22:42)
[2018-10-06] MEDS: Heparin Injection (Vial) 5,000 UNIT/ML VIAL 5000 UNIT SC (22:42)
[2018-10-07 02:20] VITALS: BP 158/106; PULSE 100; RESP 18; TEMP 36.9; O2SAT 96
[2018-10-07 03:07] VITALS: PULSE 96
[2018-10-07] MEDS: 0.9% Normal Saline 1,000 ML 75 ML IV (05:25)
[2018-10-07 05:34] LABS: Absolute Lymphocyte Count 1.54 X10^3/ul (0.83-4.51); Absolute Neutrophil Count 10.3 X10^3/uL (2.0-7.7); Basophil# 0.05 X10^3/uL; Basophil% 0.4 % (0-1); Eosinophil# 0.21 X10^3/uL; Eosinophils% 1.6 % (0-5); Hematocrit 31.2 % (37-47); Hemoglobin 9.5 g/dl (12.0-15.0); Lymphocyte # 1.54 X10^3/ul (4.0); Lymphocyte % 11.7 % (19-41); Mean Corp Hgb Conc 30.4 g/gl (32-36); Mean Corpuscular Hgb 30.8 pg (27.0-32.0); Mean Corpuscular Volume 101.3 fL (81-99); Mean Platelet Vol. 10.3 fl (6.2-12.0); Monocyte# 0.96 X10^3/uL; Monocyte% 7.3 % (0-10); Neutrophil # 10.29 X10^3/uL (2.7-7.7); Neutrophil % 78.4 % (47-70); POSITIVE COUNT NO; POSITIVE DIFFERENTIAL NO; POSITIVE MORPHOLOGY NO; Platelet Count 340 K/mm3 (150-450); RBC Distribution Width SD 42.5 fl (35.1-43.9); Red Blood Count 3.08 M/mm3 (4.2-5.4); White Blood Count 13.1 K/mm3 (4.4-11.0)
[2018-10-07 05:52] LABS: Albumin, Serum 2.3 g/dL (3.2-5.0); Anion Gap 9 (5-15); BUN 24 mg/dL (7-18); BUN/Creat Ratio 12.6 RATIO (10-20); Calcium,Total 6.7 mg/dL (8.5-10.1); Chloride 122 mmol/L (98-107); EST Glomerular Filtration Rate 27 mL/min (>60); Est Glom Filt Rate - Afr Amer 33 mL/min (>60); Estimated Creatinine Clearance 17.62 ml/min; Glucose 87 mg/dL (74-106); Magnesium 1.7 mg/dL (1.6-2.6); Potassium 4.8 mmol/L (3.5-5.1); Sodium Level 146 mmol/L (136-145)
--- NOTE | 2018-10-07 08:07 | DCINST_ITS ---
You will use the following diet at home:: Cardiac, Renal (restricted protein/sodium) Your food should be the consistency of: Regular Discharge Activity: Return to Normal Activity Weight Bearing Status: Weight bearing as tolerated Call your doctor if you observe: Fever of 101 or Higher, Shortness of breath, Dizziness, Fainting spells, Chest pain, Increased palpitations (irregular heartbeat), Uncontrolled pain Instructions: Discharge Instructions for Hypocalcemia, ED Gastroenteritis Vs Food Poison Additional Instructions: Please have a blood work done at your PCPs office in 1 week. Please follow-up with your director of religious activities in 2-3 weeks. Allergies/Adverse Reactions: Allergies amoxicillin [Amoxicillin] Allergy (Verified 10/04/18 09:02) Other celecoxib [From Celebrex] Allergy (Verified 10/04/18 09:02) Low red blood cells Penicillins Allergy (Verified 10/04/18 09:02) Other aspirin Adverse Reaction (Verified 10/04/18 09:02) Other codeine Adverse Reaction (Verified 10/04/18 09:02) Other Medications to take at Discharge B Complex W-C No.20/Folic Acid [Triphrocaps Softgel] 1 mg PO DAILY 06/15/14 Omeprazole [Prilosec] 20 mg PO DAILY 06/16/14 Simvastatin [Zocor] 20 mg PO QHS 06/16/14 Azelastine HCl [Astelin] 1 spray NASAL BID 07/30/15 Oxycodone HCl/Acetaminophen [Percocet 10-325 mg Tablet] 1 tablet PO BID PRN PRN 07/30/15 traZODone [Desyrel] 50 mg PO QHS 07/30/15 Albuterol Inhaler [Ventolin Hfa] 2 puff INHALATION Q4H PRN PRN #1 inhaler 05/17/16 Calcium Acetate 667 mg PO TID 10/04/18 Clonidine HCl [Catapres] 0.1 mg PO QHS 10/04/18 Denosumab [Prolia] 60 mg SQ X1 10/04/18 Ipratropium [place] 0.06% [ATROVENT NASAL SPRAY] 2 spray NASAL DAILY 10/04/18 Mag Oxide/D3/Turmeric Rt Xt [Magnesium-Vit D3-Turmeric Tab] 1 ea PO DAILY #14 t ab 10/04/18 Ergocalciferol [Vitamin D] 50,000 unit PO Q7D 10/06/18 Lorazepam [Ativan] 1 mg PO QHS 10/06/18 Paroxetine [Paxil] 10 mg PO DINNER 10/06/18 Patiromer Calcium Sorbitex [Veltassa] 8.4 gm PO DAILY 10/06/18 Loperamide [Imodium] 2 mg PO Q4H PRN PRN #20 capsule 10/07/18 The following prescriptions were given: Loperamide [Imodium] 2 mg PO Q4H PRN PRN #20 capsule PRN Reason: Diarrhea Mag Oxide/D3/Turmeric Rt Xt [Magnesium-Vit D3-Turmeric Tab] 1 ea PO DAILY #14 tab Primary Care Physician: Angel Casey [Primary Care Provider] - Please follow up with your Primary Care Physician in: 1 week. Test Results: Test results from this visit will be discussed in further detail at your follow- up appointment, if applicable.
[2018-10-07 08:20] VITALS: BP 178/97; PULSE 99; RESP 16; TEMP 37.2; O2SAT 96
[2018-10-07] MEDS: Calcium Acetate 667 MG Capsule PO (08:32)
[2018-10-07] MEDS: Folic Acid/Vitamin B Comp W-C 1 Capsule 1 CAP PO (08:32)
[2018-10-07] MEDS: Pantoprazole Sodium 20 MG Tablet PO (08:32)
[2018-10-07] MEDS: Magnesium Oxide 400 MG Tablet PO (08:33)
[2018-10-07] MEDS: Azelastine HCl NASAL.SRY 1 SPRAY NASAL (08:34)
[2018-10-07] MEDS: Ipratropium Bromide 0.06% NASAL SPRAY 2 SPRAY NASAL (08:34)
[2018-10-07] MEDS: Heparin Injection (Vial) 5,000 UNIT/ML VIAL 5000 UNIT SC (08:35)
[2018-10-07] MEDS: cloNIDine HCl 0.1 MG Tablet PO (08:50)
[2018-10-07 09:03] VITALS: PULSE 96
--- NOTE | 2018-10-07 14:31 | DS.PCM_ITS ---
Discharge Date and Diagnosis Date of Admission: 10/04/18 Date of Discharge: 10/07/18 - Primary Discharge Diagnosis #1 suspected new onset A. fib with RVR, ruled out. #2 hypokalemia/hypomagnesemia/hypocalcemia. #3 end-stage renal disease. #4 acute diarrheal illness, attributed to probable viral gastroenteritis. - Secondary Discharge Diagnosis Chronic Problems Osteoarthritis (Chronic) Hypertension (Chronic) End stage renal disease (Chronic) Hospital Course and Treatment Imaging Results: Clinical Impression(s) from Imaging Studies Chest X-Ray 10/04/18 09:02 IMPRESSION: 1. No acute cardiopulmonary pathology. 2. Old compression fracture of the upper T12 vertebral body containing PMMA cast from previous kyphoplasty is a new finding when compared to 05/17/2016. Electronically Signed: Andrea Nguyen MD at 9:27 EST , Service support , Operations: None, - - Epidural injection by Dr. Aburto Lumbosacral x-ray Procedures: 2-D Echocardiogram, EKG Summary of Care Provided: Patient seen and examined on the day of discharge and appeared to be stable to b e discharged home. Diarrhea improved. She denied any other symptoms. She has been ambulating without any difficulties or symptoms. She remained in sinus rhythm, vital signs are stable. The patient is a 77 year old F presented to the emergency room because of generalized weakness, initially was diagnosed with new onset A. fib with RVR and also found to have electrolyte abnormalities including hypokalemia, hypomagnesemia and hypocalcemia. Initial EKG revealed A. fib with RVR but there was evidence of P waves on lead II and it was not clear that the patient had A. fib with RVR. She was continued on clonidine that she has been on for hypertension. She remained in sinus rhythm and repeat EKG revealed sinus rhythm. Heart rate remained stable. Repeat EKG revealed normal sinus rhythm. Her cardiac enzymes are negative. 2D echocardiogram revealed ejection fraction of 60%, stage I diastolic dysfunction and pulmonary artery pressure of 28. Her TSH was normal. She was found to have electrolyte abnormalities including hypokalemia, hypomagnesemia and hypocalcemia. Her electrolytes replaced and corrected per protocol. After correction, her corrected calcium for albumin was 8.7 mg/dL. She was kept on calcium supplement and her magnesium was corrected and became normal. This patient has history of end-stage renal disease previously was on dialysis but that was discontinued because of improvement of her kidney function. During this hospital stay, she received IV fluids and her creatinine came down from 3.20 on admission down to 1.90 on discharge. She found to have acute diarrheal illness which is attributed to probable viral gastritis. Stool was negative for C. difficile and for enteric pathogens. She was given Imodium for symptomatic relief. Patient did well for the physical therapy and she was able to ambulate without difficulties. Patient discharged home in a stable medical condition, discharged on her chronic home medications without any changes, start taking Imodium as needed for diarrhea, requested to follow-up with her nephrology in 2-3 weeks, follow-up with PCP in 1 week and plan to have blood work done at her PCPs office visit in 1 week. - Physical Exam General: Alert, Oriented x3, Cooperative, No apparent distress HEENT: Atraumatic, PERRLA, EOMI, Normocephalic Oral: Moist Mucosa, No Gingival or Mucosal Lesions/ Ulcerations Neck: Supple, No JVD, Negative Carotid Bruits, Trachea Midline, Thyroid Normal Size and Texture Lungs: Clear to auscultation, No rhonchi, No wheeze, No rales, Diminished Cardiovascular: Regular rate, Regular Rhythm, Normal S1, Normal S2, PMI Normal Abdomen: Bowel Sounds Present, Soft, Non Tender, Non-Distended, No Hepato- splenomegaly Extremities: No clubbing, No cyanosis, No edema Skin: No rashes, No breakdown Lymphatic: No Cervical, Supraclavicular, or Inguinal Adenopathy Neurological: Cranial nerves II-XII grossly intact, Neuro grossly intact Psych/Mental Status: Normal Affect, Appropriate Vital Signs Temp Pulse Resp BP Pulse Ox 99 F 96 16 178/97 H 96 10/07/18 08:20 10/07/18 09:03 10/07/18 08:20 10/07/18 08:20 10/07/18 08:20 Oxygen Delivery Method Room Air Weight: 99 lb 3.328 oz Body Mass Index (BMI) 21.0 Intake and Output for Last 24 Hours 10/05/18 10/06/18 10/07/18 23:59 23:59 23:59 Intake Total 3336 / 3336 2211 / 2211 1144 / 1144 Balance 3336 / 3336 2211 / 2211 1144 / 1144 Microbiology Past 72 Hours 10/04/18 09:05 Urine Culture - Final Urine, Clean Catch Mixed Gram Positive Organisms 10/04/18 09:55 Enteric Bacteriology - Final Stool 10/04/18 09:55 C. difficile DNA Amplification - Final Stool Laboratory Tests Past 24 Hrs 10/06/18 10/07/18 10/07/18 14:05 05:20 05:20 WBC 13.1 H RBC 3.08 L Hgb 9.5 L Hct 31.2 L MCV 101.3 H MCH 30.8 MCHC 30.4 L RDW 12.0 RDW Differential 42.5 Plt Count 340 MPV 10.3 Immature Gran % (Auto) 0.600 Neut % (Auto) 78.4 H Lymph % (Auto) 11.7 L [place] % (Auto) 7.3 Eos % (Auto) 1.6 Baso % (Auto) 0.4 Absolute Neuts (auto) 10.3 H Absolute Lymphs (auto) 1.54 Total Counted Not Reportable Sodium 146 H Potassium 5.3 H 4.8 Chloride 122 H Carbon Dioxide 15.0 L Anion Gap 9 BUN 24 H Creatinine 1.90 H Estim Creat Clear Calc 17.62 Est GFR (MDRD) Af Amer 33 L Est GFR (MDRD) Non-Af 27 L BUN/Creatinine Ratio 12.6 Glucose 87 Calcium 6.7 L Magnesium 1.7 Albumin 2.3 L Discharge Activity: Return to Normal Activity Weight Bearing Status: Weight bearing as tolerated Call your doctor if you observe: Fever of 101 or Higher, Shortness of breath, Dizziness, Fainting spells, Chest pain, Increased palpitations (irregular heartbeat), Uncontrolled pain Home Medications: Medications to take at Discharge B Complex W-C No.20/Folic Acid [Triphrocaps Softgel] 1 mg PO DAILY 06/15/14 Omeprazole [Prilosec] 20 mg PO DAILY 06/16/14 Simvastatin [Zocor] 20 mg PO QHS 06/16/14 Azelastine HCl [Astelin] 1 spray NASAL BID 07/30/15 Oxycodone HCl/Acetaminophen [Percocet 10-325 mg Tablet] 1 tablet PO BID PRN PRN 07/30/15 traZODone [Desyrel] 50 mg PO QHS 07/30/15 Albuterol Inhaler [Ventolin Hfa] 2 puff INHALATION Q4H PRN PRN #1 inhaler 05/17/16 Calcium Acetate 667 mg PO TID 10/04/18 Clonidine HCl [Catapres] 0.1 mg PO QHS 10/04/18 Denosumab [Prolia] 60 mg SQ X1 10/04/18 Ipratropium [place] 0.06% [ATROVENT NASAL SPRAY] 2 spray NASAL DAILY 10/04/18 Mag Oxide/D3/Turmeric Rt Xt [Magnesium-Vit D3-Turmeric Tab] 1 ea PO DAILY #14 tab 10/04/18 Ergocalciferol [Vitamin D] 50,000 unit PO Q7D 10/06/18 Lorazepam [Ativan] 1 mg PO QHS 10/06/18 Paroxetine [Paxil] 10 mg PO DINNER 10/06/18 Patiromer Calcium Sorbitex [Veltassa] 8.4 gm PO DAILY 10/06/18 Loperamide [Imodium] 2 mg PO Q4H PRN PRN #20 capsule 10/07/18 Following Prescrptions Were Given to Patient: Loperamide [Imodium] 2 mg PO Q4H PRN PRN #20 capsule PRN Reason: Diarrhea Mag Oxide/D3/Turmeric Rt Xt [Magnesium-Vit D3-Turmeric Tab] 1 ea PO DAILY #14 tab Primary Care Physician: Angel Casey [Primary Care Provider] - Please follow up with your Primary Care Physician in: 1 week. Please Follow Up With: Angel Casey Patient Instructions: Discharge Instructions for Hypocalcemia, ED Gastroenteritis Vs Food Poison Disposition: Home Minutes spent on discharge:: 33 Patient Condition:: Stable Medical Necessity - Tobacco Use Smoking Status: Never smoker Meaningful Use Info Meaningful Use Diagnoses (Choose all that apply): None applicable Code Visit Inpatient E&M: 87694 Disch Hosp
[2018-10-08 07:59] LABS: Vitamin D 1,25-Dihydroxy 38.3 pg/mL (19.9-79.3)
--- NOTE | 2018-10-08 16:36 | CASEMGMT ---
RN CM Discharge F/U Phone Call LACE: 11 Strata: 3 Discharge date: 10/07/18 Call date: 10/08/18 Call time: 1635 Attempted to reach pt without success at this time, message left with pt to call this RN CM if able. SStaten RN CM Admission dx: Afib RVR
== END 2018-10-07 11:15 | disposition home or self-care (01) | DRG 641 ==
LOC: ED 09:26 → PCU 13:31
PROVIDERS: Admitting Provider Internal Medicine; Emergency Provider Emergency Medicine; Family Provider Family Medicine; PCP Family Medicine; Visit Provider Hospitalist
DX: E87.6 Hypokalemia (principal); N18.4 Chronic kidney disease, stage 4 (severe); N17.9 Acute kidney failure, unspecified; A08.4 Viral intestinal infection, unspecified; I49.1 Atrial premature depolarization; E83.42 Hypomagnesemia; E83.51 Hypocalcemia; M81.0 Age-related osteoporosis without current pathological fracture; E78.5 Hyperlipidemia, unspecified; F41.8 Other specified anxiety disorders; Z66 Do not resuscitate; M15.9 Polyosteoarthritis, unspecified; I12.9 Hypertensive chronic kidney disease with stage 1 through stage 4 chronic kidney disease, or unspecified chronic kidney disease
CPT/HCPCS: 36415; 71045; 80048; 80076; 81001; 82040; 82652; 83690; 83735; 84100; 84132; 84443; 84484; 85025; 85027; 87086; 87088; 87493; 87506; 93005; 93306; 97161; 97530; 97802; 99283; J7030; J7040; A4216; J0610; J3475

== ENCOUNTER → 2019-05-31 15:28 | Outpatient (CLI) | payer MEDICARE, OTHER, SELFPAY ==
[2018-10-04 13:49] VITALS: BMI 21.0
--- NOTE | 2019-05-31 15:40 | RAD_ITS ---
STUDY: X-RAY - LUMBAR SPINE REASON FOR EXAM: Female, 78 years old. Chronic pain TECHNIQUE: 3 view(s) of the lumbar spine were obtained. COMPARISON: 15 June 2014, 15 Jan 2017 FINDINGS: There is moderate S-shaped scoliosis of the lumbar spine. There is chronic compression fracture of T12 cement augmentation. Lateral alignment is preserved. There are moderate degenerative changes. Mineralization is diffusely decreased. SI joints are normal. There is nonobstructive distribution of gas and stool in the abdomen. There are severe end-stage degenerative changes in the left hip with AVN/collapse of the femoral head. Appearance is similar to prior. RAD/Lumbar Spine 2 or 3 Views IMPRESSION: 1. Spondylosis 2. Scoliosis. 3. Osteoporosis. 4. T12 compression fracture with cement augmentation. 5. Left end-stage degenerative joint disease. 6. No change since prior study Electronically Signed: Milena Tejada, at 16:03 EDT Tel , Service support ,
[2019-05-31 17:51] LABS: Amphetamine Urine VISTA NEGATIVE (<1000 ng/mL); Barbiturate Urine VISTA NEGATIVE (< 200 ng/mL); Benzodiazepine Urine VISTA NEGATIVE (< 200 ng/mL); Cocaine Urine VISTA NEGATIVE (< 300 ng/mL); Ecstacy Urine VISTA NEGATIVE (< 500 ng/mL); Methadone Urine VISTA NEGATIVE (< 300 ng/mL); PCP Urine VISTA NEGATIVE (< 25 ng/mL); THC Urine VISTA NEGATIVE (< 50 ng/mL); Vista UDS pH Range 5
== END ==
PROVIDERS: Family Provider Family Medicine; PCP Family Medicine; Referring Provider Anesthesiology Pain Medicine; Visit Provider Anesthesiology Pain Medicine
DX: M54.9 Dorsalgia, unspecified (principal); F11.20 Opioid dependence, uncomplicated
CPT/HCPCS: 72100; 80307

== ENCOUNTER → 2020-02-11 13:36 | Outpatient (CLI) | payer MEDICARE, OTHER, SELFPAY ==
[2018-10-04 13:49] VITALS: BMI 21.0
--- NOTE | 2020-02-11 13:47 | RAD_ITS ---
STUDY: X-RAY - PELVIS AND LEFT HIP REASON FOR EXAM: Female, 79 years old. Left Hip pain worsening for 2 weeks. Pain travels down left leg. TECHNIQUE: 3 views of the pelvis and hip. COMPARISON: None. FINDINGS: There is extremely severe osteoarthritis of the left hip with flattening of the femoral head, complete loss of joint space, sclerosis and subchondral cysts. No acute fracture or dislocation. Deformity of the left pubis is seen related to previous fractures. Diffuse demineralization. Degenerative changes of the lumbar spine. RAD/HIP, UNI W/ Pelvis 2-3 Views IMPRESSION: No acute fracture or dislocation. Severe osteoarthritis of the left hip. Electronically Signed: Jaswant Sullivan MD at 21:56 EDT , Service support ,
== END ==
PROVIDERS: PCP Family Medicine; Referring Provider Anesthesiology Pain Medicine; Visit Provider Anesthesiology Pain Medicine
DX: M25.552 Pain in left hip (principal)
CPT/HCPCS: 73502

== ENCOUNTER → 2020-02-23 17:24 | Outpatient (CLI) | payer MEDICARE, OTHER, SELFPAY ==
[2018-10-04 13:49] VITALS: BMI 21.0
--- NOTE | 2020-02-23 17:24 | MRI_ITS ---
STUDY: MRI LUMBAR SPINE WITHOUT CONTRAST REASON FOR EXAM: Female, 79 years old. back pain into L hip, knee x 2 months, no trauma TECHNIQUE: Standardized fat and water weighted pulse sequences were obtained in the sagittal and axial planes. COMPARISON: 02/14/2017 FINDINGS: Normal lumbar lordosis. Reverse S scoliosis. Normal conus medullaris that terminates at the L1-2 level. Remote T12 compression deformity. T12-L1: Bulging annulus and cranially migrating central disc extrusion with mild to moderate central canal stenosis and moderate bilateral foraminal stenoses. L1-2: Bulging annulus and caudally migrating left paracentral disc extrusion with moderate left lateral recess stenosis and moderate right and mild left foraminal stenoses. L2-3: Disc space narrowing and desiccation with discogenic endplate changes and anterior osteophytes. Bulging annulus and bilateral facet hypertrophy with mild central canal and moderate right and mild left foraminal stenoses. L3-4: Bulging annulus and bilateral facet hypertrophy with severe left lateral recess stenosis and deflection of the transiting left L4 nerve root. Moderate bilateral foraminal stenoses. L4-5: Disc space narrowing and desiccation with discogenic endplate changes and anterior osteophytes. Bulging annulus and left facet hypertrophy with moderate to severe left lateral recess stenosis and moderate to severe left and moderate right foraminal stenoses. L5-S1: Bulging annulus and bilateral facet hypertrophy with severe left and moderate right foraminal stenoses. Normal visualized sacral ala. Normal visualized paraspinous soft tissue structures. Distended gallbladder. Left renal cyst. MRI/Spine Lumbar (Routine) IMPRESSION: Multilevel degenerative disease as described. Disc extrusions at T12-L1 and L1-2. Significant left lateral recess stenosis at the L3-4 level, with deflection of the transiting left L4 nerve root. Severe left foraminal stenosis at the L5-S1 level. Electronically Signed: Skyler Javier MD at 19:13 EDT Tel , Service support ,
== END ==
PROVIDERS: PCP Family Medicine; Referring Provider Anesthesiology Pain Medicine; Visit Provider Anesthesiology Pain Medicine
DX: M54.9 Dorsalgia, unspecified (principal); M79.606 Pain in leg, unspecified
CPT/HCPCS: 72148

== ENCOUNTER → 2020-07-13 13:38 | Outpatient (CLI) | payer MEDICARE, OTHER, SELFPAY ==
[2018-10-04 13:49] VITALS: BMI 21.0
--- NOTE | 2020-07-13 13:41 | RAD_ITS ---
STUDY: X-RAY - PELVIS AND LEFT HIP REASON FOR EXAM: Female, 79 years old. SEVERE LEFT HIP PAIN TECHNIQUE: 3 views of the pelvis and hip. COMPARISON: Prior pelvis and left hip radiographs of 02/11/2020 FINDINGS: There is a non-specific bowel gas pattern. Normal visualized soft tissue structures. Old fracture deformity of the medial left superior and inferior pubic ramus stable from prior exam. Degenerative changes of the sacroiliac joints. Normal right superior and inferior pubic ramus. Normal bilateral ischial tuberosities. Severe disc space narrowing on the left with cystic and erosive changes in the superior joint space with flattening of the femoral head. Findings are not substantially changed from prior exam. RAD/HIP, UNI W/ Pelvis 2-3 Views IMPRESSION: All fracture deformity of the medial left superior and inferior pubic rami. Advanced osteoarthritis of the left hip with severe narrowing, marginal osteophytosis, cyst formation and flattening of the femoral head. Findings are not substantially changed from prior exam of 02/11/2020. Electronically Signed: Gabrielle Beavers MD at 0:00 EST , Service support ,
== END ==
PROVIDERS: PCP Family Medicine; Visit Provider Anesthesiology Pain Medicine
DX: M25.552 Pain in left hip (principal)
CPT/HCPCS: 73502

== ENCOUNTER → 2021-01-03 13:01 | Outpatient (CLI) | payer MEDICARE, SELFPAY ==
[2018-10-04 13:49] VITALS: BMI 21.0
--- NOTE | 2021-01-03 13:10 | VDUE_ITS ---
Reason For Study: Renal dialysis Right Arm Left Arm Right Cephalic Vein at the wrist measures Left Cephalic Vein at the wrist measures 0.11 x 0.11 cm. 0.17 x 0.16 cm. Right Cephalic Vein in the forearm measures Left Cephalic Vein in the forearm measures 0.11 x 0.12 cm. 0.24 x 0.24 cm. Right Cephalic Vein below antecub measures Left Cephalic Vein below antecub measures 0.12 x 0.13 cm. 0.23 x 0.23 cm. Right Cephalic Vein above antecub measures Left Cephalic Vein above antecub measures 0.20 x 0.21 cm. 0.32 x 0.33 cm. Right Cephalic Vein mid bicep measures 0.24 Left Cephalic Vein at the shoulder measures x 0.26 cm. 0.15 x 0.15 cm. Right Cephalic Vein at the shoulder measures Cephalic vein mid bicep is occluded. 0.36 x 0.36 cm. 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 Unable to visualize basilic piotr. cm witha velocity of Old graft noted at antecube and axilla area, Right Radial artery measures. with mid section of graft absent. Right Basilic Vein at the origin measures Left Brachial artery measures 0.54 x 0.49 cm 0.37 x 0.39 cm. with a velocity of 61.1 cm/sec. Right Basilic Vein mid bicep measures 0.37 x Left Radial artery measures 0.27 x 0.26 cm 0.36 cm. with a velocity of 73.7 cm/sec. Right Basilic Vein above antecub measures 0.34 x 0.36 cm. Right Brachial artery measures 0.46 x 0.45 cm with a velocity of 111 cm/sec. Right Radial artery measures 0.28 x 0.26 cm with a velocity of 59.1 cm/sec. VL/Saphenous Vein Mapping, Bilat Interpretation Summary Right upper extremity cephalic vein patent and compressible although diminutive in the forearm. Patent and compressible and if adequate diameter right upper arm basilic vein Small left upper extremity cephalic vein throughout with findings of no flow no dafne in the mid biceps area Reported history of left upper arm graft with no flow and inability to visualiz e the basilic vein. Normal diameter and flow bilateral radial and brachial arteries Ordering Physician: SY BECKHAM Referring Physician: Angel Casey Performed By: Mei Cruz RVT ?
== END ==
PROVIDERS: PCP Family Medicine
DX: Z01.818 Encounter for other preprocedural examination (principal); N18.6 End stage renal disease
CPT/HCPCS: 93970; 93990

== ENCOUNTER 2021-09-20 12:08 | Outpatient (CLI) | payer MEDICARE, SELFPAY ==
[2021-09-20 13:44] LABS: Magnesium 2.6 mg/dL (1.6-2.6)
[2021-09-20 13:54] LABS: Hepatitis B Surface Antigen Non-Reactive (Nonreactive)
== END 2021-09-20 23:59 | disposition short-term general hospital (02) ==
PROVIDERS: PCP Family Medicine; Visit Provider Internal Medicine Nephrology
DX: E83.42 Hypomagnesemia (principal); Z99.2 Dependence on renal dialysis
CPT/HCPCS: 36415; 83735; 87340

== ENCOUNTER 2021-11-15 12:08 | Observation (INO) | payer MEDICARE, SELFPAY ==
[2021-11-15] VITALS (7 sets, daily range): BP systolic 147–191; BP diastolic 84–106; PULSE 105–124; RESP 15–16; TEMP 36.3–37.2; O2SAT 93–94; BMI 20.5; BMI 20.2
--- NOTE | 2021-11-15 12:23 | CT_ITS ---
STUDY: CT BRAIN WITHOUT CONTRAST REASON FOR EXAM: Female, 80 years old. Mental Status Change RADIATION DOSAGE (If Supplied By Facility): CTDIvol = ( 44.99 ) mGy, DLP = ( 694.87 ) mGycm TECHNIQUE: Transaxial CT imaging of the brain was performed without administration of intravenous contrast material. Individualized dose optimization techniques were used for this CT. COMPARISON: No relevant priors. FINDINGS: Normal soft tissue structures. Normal calvarium. There is mild cerebral atrophy with widening of the extra-axial spaces and ventricular dilatation. There are areas of decreased attenuation within the white matter tracts of the supratentorial brain, consistent with microvascular disease changes. 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 Normal brainstem. Normal cerebellum. There is no intracranial hemorrhage. There are no findings of an acute ischemic infarction. Normal visualized paranasal sinuses. CT/Brain/Head without Contrast IMPRESSION: Chronic involutional changes of the brain. Electronically Signed: Bret Fox MD at 13:16 EDT ,
--- NOTE | 2021-11-15 12:25 | EKG12_ITS ---
Test Reason : CONFUSION Blood Pressure : / mmHG Vent. Rate : 122 BPM Atrial Rate : 122 BPM P-R Int : 168 ms QRS Dur : 076 ms QT Int : 354 ms P-R-T Axes : 000 -62 062 degrees QTc Int : 504 ms Sinus tachycardia Left axis deviation Voltage criteria for left ventricular hypertrophy Nonspecific ST abnormality Abnormal ECG Confirmed by VERONICA FERREIRA, KEYLA ([id number]), department editor TIFFANI PANDA ([id number]) on 11/19/2021 9:53:26 AM Referred By: NATALIYA Confirmed By:BARBRA MARTIN MD
--- NOTE | 2021-11-15 12:25 | EDS_ITS ---
HPI History of Present Illness Chief Complaint: Confusion Narrative Narrative: History and physical is limited secondary to patient's mental status/confusion. According to her and her son, she awoke yesterday morning and was more confused. The day before yesterday, everything was fine. However, her family states that she is a dialysis patient and she receives dialysis on Tuesdays and Saturdays. She did not go to dialysis on this Friday, 2 days ago, and she did not go on Friday. Her last complete dialysis was approximately 10 days ago. Her states that they do not take fluid off her and that she still makes urine. She denies any fevers or chills. No nausea or vomiting. states that she is generally weak and did not want to get out of bed and is not walking as much. They present her because of confusion. PFSH PFSH Home Medications Triphrocaps 1 mg PO DAILY 06/15/14 [History Last Taken 11/13/21] omeprazole 20 mg PO DAILY 06/16/14 [History Last Taken 11/13/21] simvastatin 20 mg PO QHS 06/16/14 [History Last Taken 11/13/21] azelastine 1 spray NASAL BID 07/30/15 [History Last Taken 05/17/16] albuterol sulfate [Ventolin HFA] 2 puff INHALATION Q4H PRN PRN #1 inhaler 05/17/16 [Rx Last Taken Unknown] Prolia 60 mg SQ X1 10/04/18 [History Last Taken Unknown] calcium acetate(phosphat bind) 667 mg PO TID 10/04/18 [History Last Taken 11/13/21] clonidine HCl 0.1 mg PO QHS 10/04/18 [History Last Taken 11/13/21] ipratropium bromide 2 spray NASAL DAILY 10/04/18 [History Last Taken Unknown] Veltassa 8.4 g PO DAILY 10/06/18 [History Last Taken 11/13/21] lorazepam 1 mg PO QHS 10/06/18 [History Last Taken 11/13/21] loperamide 2 mg PO Q4H PRN PRN #20 capsule 10/07/18 [Rx Last Taken Unknown] hydralazine 25 mg PO TID 11/15/21 [History Last Taken Unknown] hydrocodone-acetaminophen 1 tab PO BID 11/15/21 [History Last Taken Unknown] mag [id number] rt xt 1 each PO DAILY 11/15/21 [History Last Taken 11/13/21] paroxetine HCl 30 mg PO DAILY 11/15/21 [History Last Taken 11/13/21] trazodone 50 mg PO QHS 11/15/21 [History Last Taken 11/13/21] Allergy/AdvReac Type Severity Reaction Status Date / Time amoxicillin [Amoxicillin] Allergy Other Verified 11/15/21 12:10 celecoxib [From Celebrex] Allergy Low red Verified 11/15/21 12:10 blood cells Penicillins Allergy Other Verified 11/15/21 12:10 aspirin AdvReac Other Verified 11/15/21 12:10 codeine AdvReac Other Verified 11/15/21 12:10 Social History Smoking Status: Never smoker ROS ROS ED ROS Narrative Review of systems mainly obtained through and son. Constitutional: No fever, no chills. HEENT: No sore throat. No neck pain. No loss of vision. No rhinorrhea. Cardiovascular: No chest pain. No palpitations. No pedal edema. Respiratory: No cough, no shortness of breath. Abdominal: No abdominal pain. No nausea. No vomiting. Genitourinary: No dysuria. No hematuria. Musculoskeletal: No myalgias. No arthralgias. Neurologic: No headaches. No dizziness. No lightheadedness. Positive confusion. Generalized weakness, decrease in ambulation. Skin: No rash. No change in color. Psychiatric: No depression. No anxiety. Review of Systems ROS Unobtainable: due to mental status EXAM Physical Exam Narrative Exam Narrative: Afebrile. Vital signs noted. HEENT: Normocephalic. Atraumatic. PERRL, EOMI. Neck soft and supple. No point tenderness or step off. Patient has her serra hair dyed green and blue. Cardiovascular: Tachycardia, regular. No murmurs, rubs, or gallops appreciated. Respiratory: No tachypnea. Lungs clear to auscultation bilaterally. Gastrointestinal: Abdomen soft, nontender, with normoactive bowel sounds. No rebound or guarding. Neurological: Awake. Alert. Oriented to person and place but not year. Nonfocal, nonlateralizing. Skin: No rash. Normal color. No pallor. Musculoskeletal: No pedal edema. Full range of motion extremities. Const Vital Signs: 11/15/21 12:09 11/15/21 14:03 11/15/21 14:04 Temperature 97.8 F 98.9 F Temperature Source Temporal Temporal Pulse Rate 124 H 113 H Respiratory Rate 16 15 15 Blood Pressure 157/97 H 191/106 H Blood Pressure Mean 117 134 Pulse Ox 94 93 Oxygen Delivery Method Room Air Room Air MDM MDM MDM Narrative Medical decision making narrative: Comprehensive work-up was pursued. I will obtain an EKG, basic laboratory work that includes ammonia level. CT of the brain and chest x-ray will be obtained along with urinalysis to look for infection as a source of her confusion. EKG demonstrates sinus tachycardia without acute ST changes. CBC shows elevated white count of 11.9, hemoglobin 14.4 and normal, normal platelet count of 219. While her electrolyte panel shows a normal potassium of 5.0, her creatinine is elevated at 7.71 with a BUN of 68. The last prior creatinine that I have is from 2019, 3 years ago and was not as severely elevated. Her ammonia level is normal at 13. CT the brain shows chronic changes but no acute stroke or hemorrhage. My interpretation of her chest x-ray shows chronic changes but no acute process/no infiltrate. Radiology also read the x-ray and commented on atelectasis versus infiltrate in the right lower lobe. She does not have a fever and does not complain of cough, and I do not feel antibiotics are indicated. Her blood pressure elevated to 197 systolic. She has not taken her clonidine this morning. She will be given her clonidine and I discussed the patient with Dr. Ty who will admit the patient. I did discuss the patient with her motor scooter mechanic, Dr. Barriga, for dialysis as she has missed the last week. Disposition is admit in stable condition. Lab Data Attestation: I reviewed the patient's lab results. Labs: Laboratory Results - last 24 hr 11/15/21 11/15/21 11/15/21 12:42 12:42 12:42 WBC 11.9 H RBC 4.24 Hgb 14.4 Hct 43.9 MCV 103.5 H MCH 34.0 H MCHC 32.8 RDW Std Deviation 59.9 H RDW Coeff of Joey 15.9 H Plt Count 219 MPV 10.7 Immature Gran % (Auto) 0.300 Neut % (Auto) 79.7 H Lymph % (Auto) 10.5 L Cuming % (Auto) 9.0 Eos % (Auto) 0.0 Baso % (Auto) 0.5 Absolute Neuts (auto) 9.5 H Absolute Lymphs (auto) 1.25 Nucleated RBC % 0 Sodium 136 Potassium 5.0 Chloride 102 Carbon Dioxide 25.0 Anion Gap 9 BUN 68 H Creatinine 7.71 H* Estim Creat Clear Calc 4.08 Est GFR (MDRD) Af Amer 7 L Est GFR (MDRD) Non-Af 5 L BUN/Creatinine Ratio 8.8 L Glucose 139 H Calcium 12.3 H Phosphorus Total Bilirubin 0.50 AST 28 ALT 21 Alkaline Phosphatase 75 Ammonia 13.0 Total Protein 8.5 H Albumin 4.2 Globulin 4.3 H Albumin/Globulin Ratio 1.0 11/15/21 12:42 WBC RBC Hgb Hct MCV MCH MCHC RDW Std Deviation RDW Coeff of Joey Plt Count MPV Immature Gran % (Auto) Neut % (Auto) Lymph % (Auto) Cuming % (Auto) Eos % (Auto) Baso % (Auto) Absolute Neuts (auto) Absolute Lymphs (auto) Nucleated RBC % Sodium Potassium Chloride Carbon Dioxide Anion Gap BUN Creatinine Estim Creat Clear Calc Est GFR (MDRD) Af Amer Est GFR (MDRD) Non-Af BUN/Creatinine Ratio Glucose Calcium Phosphorus 7.9 H Total Bilirubin AST ALT Alkaline Phosphatase Ammonia Total Protein Albumin Globulin Albumin/Globulin Ratio Radiography Diagnostic Testing: Clinical Impression(s) from Imaging Studies Brain CT 11/15/21 12:23 IMPRESSION: Chronic involutional changes of the brain. Electronically Signed: Bret Fox MD at 13:16 EDT , Chest X-Ray 11/15/21 13:20 IMPRESSION: Support devices: None. There are a few questionable patchy opacities in the right lower lobe which could relate to atelectasis and/or pneumonia. Otherwise, the remainder the lungs are clear with no sizable pleural effusion or pneumothorax. Cardiomediastinal silhouette is within normal limits. No acute findings in the bones or soft tissues. Electronically Signed: Goyo De Leon, at 13:37 EDT , Discharge Plan Dx/Rx/DC Orders Clinical Impression: Confusion, ESRD needing dialysis Disposition Disposition: Acute Care Hospital [facility] Discharge Date/Time: 11/15/21 15:14
[2021-11-15 12:56] LABS: Absolute Lymphocyte Count 1.25 X10^3/uL (0.83-4.51); Absolute Neutrophil Count 9.5 X10^3/uL (2.0-7.7); Basophil# 0.06 X10^3/uL; Basophil% 0.5 % (0-1); Hematocrit 43.9 % (37-47); Hemoglobin 14.4 g/dL (12.0-15.0); Lymphocyte # 1.25 X10^3/ul (0.83-4.51); Lymphocyte % 10.5 % (19-41); Mean Corp Hgb Conc 32.8 g/dL (32-36); Mean Corpuscular Volume 103.5 fL (81-99); Mean Platelet Vol. 10.7 fl (6.2-12.0); Monocyte# 1.08 X10^3/uL; NRBC Flagged by Analyzer 0 % (0-5); Neutrophil # 9.51 X10^3/uL (2.7-7.7); Neutrophil % 79.7 % (47-70); Platelet Count 219 K/mm3 (150-450); RBC Distribution Width CV 15.9 % (11.6-14.6); RBC Distribution Width SD 59.9 fl (35.1-43.9); Red Blood Count 4.24 M/mm3 (4.2-5.4); White Blood Count 11.9 K/mm3 (4.4-11.0)
[2021-11-15 13:18] LABS: AST(SGOT) 28 U/L (15-37); Alanine Aminotransfer ALT/SGPT 21 U/L (13-56); Albumin, Serum 4.2 g/dL (3.2-5.0); Alkaline Phosphatase 75 U/L (45-117); Anion Gap 9 (5-15); BUN 68 mg/dL (7-18); BUN/Creat Ratio 8.8 RATIO (10-20); Calcium,Total 12.3 mg/dL (8.5-10.1); Chloride 102 mmol/L (98-107); Creatinine, Serum 7.71 mg/dL (0.55-1.02); EST Glomerular Filtration Rate 5 mL/min (>60); Est Glom Filt Rate - Afr Amer 7 mL/min (>60); Estimated Creatinine Clearance 4.08 ml/min; Globulin 4.3 g/dL (2.2-4.2); Glucose 139 mg/dL (74-106); Protein, Total 8.5 g/dL (6.4-8.2); Sodium Level 136 mmol/L (136-145)
--- NOTE | 2021-11-15 13:20 | RAD_ITS ---
INDICATION: CAD EXAMINATION/TECHNIQUE: X-RAY - XR Chest 1 View COMPARISON: Chest radiograph from 10/04/2018. FINDINGS/ RAD/Chest 1 View (Portable) IMPRESSION: Support devices: None. There are a few questionable patchy opacities in the right lower lobe which could relate to atelectasis and/or pneumonia. Otherwise, the remainder the lungs are clear with no sizable pleural effusion or pneumothorax. Cardiomediastinal silhouette is within normal limits. No acute findings in the bones or soft tissues. Electronically Signed: Goyo De Leon, at 13:37 EDT ,
[2021-11-15] MEDS: 0.9% Normal Saline 1,000 ML 999 ML IV (13:31)
[2021-11-15] MEDS: cloNIDine HCl 0.1 MG Tablet PO ×2 (13:53→22:28)
--- NOTE | 2021-11-15 14:10 | CASEMGMT ---
DAYTON DENNIS Assessment: RN CM to room to meet with patient for initial transition planning/care coordination assessment. DAYTON DENNIS introduced self and role at [facility]. Patient voices understanding and consents to assessment at this time. Patient's Stuart Gibbs present at bedside and active in transition planning. Patient is alert but somewhat confused. Patient is able to answer some questions appropriately and assists with providing accurate history. Care providers, pharmacy, and demographics verified/updated at this time. Admitting Dx: Encephalopathy, renal failure PCP: Angel Casey Specialists: Linus- conductor sleeping car Preferred Pharmacy: [facility] Insurance: [facility] Prescription Benefit: yes Living Will/HPOA: Patient denies having a living will or HPOA but expresses interest in completing AD. LNOK: Staurt Gibbs and son Buck Gibbs Living Arrangements: Patient lives with in single story house with two steps to enter the home. Patient states independent with ADLs prior to hospitalization. Patient typically ambulates with the use of a walker. Smoking/ETOH: Never smoker, admits to ETOH use (1 drink once or twice a week) Transportation: Patient does not drive. drives patient and patient denies transportation concerns. DME/HHC/SNF: Patient has a walker, shower chair, hand-held shower and grab bars in the home. Denies previous HHC or SNF stays. Patient receives hemodialysis twice a week on Tuesdays and Saturdays at [facility] in [place], [place]. Patient has missed two treatments (most recent dialysis 10 days ago). Patient has no concerns with going home at time of discharge. DAYTON DENNIS discussed HHC with patient and . Patient denies need for HHC at this time. CM to follow for any discharge planning/needs. Patient and voice no concerns/needs at this time. Advised patient and to ask for CM if any questions/concerns/needs arise. Voices understanding. Plan: home
--- NOTE | 2021-11-15 14:17 | HP.PCM.HOS_ITS ---
HPI - General General Date of Admission: 11/15/21 Date of Service: 11/15/21 Chief Complaint: Confusion HPI Narrative SAHSA HWANG, is a 80 F who presents to the emergency room at [facility] with complaints of confusion over the last 48 hours, patient did not go to her last 2 dialysis appointments and according to the , she states she has been taking her medications as directed at home but this examiner doubts th at. Patient is alert in the emergency room, she is confused, she does not appear to be in any distress. She is hypertensive and told the emergency room physician that she did not take her Catapres this morning. Review of systems was unable be obtained from the patient due to her confusion. Lab was done in the emergency room, and showed a white blood cell count of 11.9, chemistry panel was remarkable for a BUN of 60 and a creatinine of 7.71. Patient's calcium was 12.3, glucose was 139. Patient had a brain CT which showed chronic involutional changes of the brain. Chest x-ray showed quest ionable patchy opacities in the right lower lobe which could relate to atelectasis and/or pneumonia, otherwise remainder the lungs were clear with no sizable pleural effusion or pneumothorax. I talked at length with the patient and the patient's , I told the patient's that he would be better served to bring the patient into the hospital if she misses dialysis and becomes confused. Patient will be admitted to PCU for acute on chronic renal failure, I have notified the recoil spring winder regarding her admission. PFSH Home Medications B complex with C 20-folic acid [Triphrocaps] 1 mg PO DAILY 06/15/14 [History Last Taken 05/17/16] omeprazole 20 mg PO DAILY 06/16/14 [History Last Taken 05/17/16] simvastatin 20 mg PO QHS 06/16/14 [History Last Taken 05/16/16] azelastine 1 spray NASAL BID 07/30/15 [History Last Taken 05/17/16] oxycodone-acetaminophen [Percocet] 1 tab PO BID PRN PRN 07/30/15 [History Last Taken 05/17/16] trazodone 50 mg PO QHS 07/30/15 [History Last Taken 05/16/16] albuterol sulfate [Ventolin HFA] 2 puff INHALATION Q4H PRN PRN #1 inhaler 05/17/16 [Rx Last Taken Unknown] calcium acetate(phosphat bind) 667 mg PO TID 10/04/18 [History Last Taken Unknown] clonidine HCl 0.1 mg PO QHS 10/04/18 [History Last Taken Unknown] denosumab [Prolia] 60 mg SQ X1 10/04/18 [History Last Taken Unknown] ipratropium bromide 2 spray NASAL DAILY 10/04/18 [History Last Taken Unknown] mag [id number] rt xt 1 ea PO DAILY #14 tab 10/04/18 [Rx Last Taken Unknown] ergocalciferol (vitamin D2) [Vitamin D2] 50,000 unit PO Q7D 10/06/18 [History Last Taken Unknown] lorazepam 1 mg PO QHS 10/06/18 [History Last Taken Unknown] paroxetine HCl 10 mg PO DINNER 10/06/18 [History Last Taken Unknown] patiromer calcium sorbitex [Veltassa] 8.4 g PO DAILY 10/06/18 [History Last Taken Unknown] loperamide 2 mg PO Q4H PRN PRN #20 capsule 10/07/18 [Rx Last Taken Unknown] Allergy/AdvReac Type Severity Reaction Status Date / Time amoxicillin [Amoxicillin] Allergy Other Verified 11/15/21 12:10 celecoxib [From Celebrex] Allergy Low red Verified 11/15/21 12:10 blood cells Penicillins Allergy Other Verified 11/15/21 12:10 aspirin AdvReac Other Verified 11/15/21 12:10 codeine AdvReac Other Verified 11/15/21 12:10 Social History Smoking Status: Never smoker ROS Review of Systems ROS Unobtainable: due to encephalopathy Vital Signs Vital Signs Vital Signs: 11/15/21 12:09 11/15/21 14:03 11/15/21 14:04 Temperature 97.8 F 98.9 F Temperature Source Temporal Temporal Pulse Rate 124 H 113 H Respiratory Rate 16 15 15 Blood Pressure 157/97 H 191/106 H Blood Pressure Mean 117 134 Pulse Ox 94 93 Oxygen Delivery Method Room Air Room Air Weight Weight: 44.452 kg Body Mass Index (BMI) 20.5 Physical Exam Const alert and no apparent distress Constitutional Narrative: Patient is alert, she shows evidence of confusion but is directable. General Appearance: cooperative, well kempt and well developed Orientation / Consciousness: awake, oriented to person, oriented to place and oriented to time HEENT normocephalic, head/scalp atraumatic and moist oral mucous membranes Eyes PERRL, EOMs intact bilaterally and conjunctivae normal Neck nuchal rigidity, supple, no JVD, thyroid normal and no carotid bruits General: trachea midline Resp normal respiratory effort, no retractions, no use of accessory muscles and clear to auscultation bilaterally Auscultation: Negative for rales, rhonchi or wheezes Cardio regular rate, regular rhythm, S1 normal heart sound, S2 normal heart sound, no murmurs, no rub and no gallops GI normal to inspection, nondistended, normoactive bowel sounds, soft to palpation, non-tender and non-distended Extremity no clubbing, cyanosis or edema Skin no rashes or lesions noted General Skin Exam: no breakdown Neuro CN's II-XII intact bilaterally, no focal motor deficits and no sensory deficits noted Neuro Narrative: Patient responds appropriately to some questions. Sensorium / Orientation: awake and alert Speech: speech normal Psych Psych Narrative: Patient has evidence of confusion, she responds appropriately to some questions Results Lab / Micro Data Result Diagrams: 11/15/21 12:42 11/15/21 12:42 Labs: Laboratory Results - last 24 hr 11/15/21 12:42: WBC 11.9 H, RBC 4.24, Hgb 14.4, Hct 43.9, MCV 103.5 H, MCH 34.0 H, MCHC 32.8, RDW Std Deviation 59.9 H, RDW Coeff of Joey 15.9 H, Plt Count 219, MPV 10.7, Immature Gran % (Auto) 0.300, Neut % (Auto) 79.7 H, Lymph % (Auto) 10.5 L, [place] % (Auto) 9.0, Eos % (Auto) 0.0, Baso % (Auto) 0.5, Absolute Neuts (auto) 9.5 H, Absolute Lymphs (auto) 1.25, Nucleated RBC % 0 11/15/21 12:42: Sodium 136, Potassium 5.0, Chloride 102, Carbon Dioxide 25.0, Anion Gap 9, BUN 68 H, Creatinine 7.71 H*, Estim Creat Clear Calc 4.08, Est GFR (MDRD) Af Amer 7 L, Est GFR (MDRD) Non-Af 5 L, BUN/Creatinine Ratio 8.8 L, Glucose 139 H, Calcium 12.3 H, Total Bilirubin 0.50, AST 28, ALT 21, Alkaline Ph osphatase 75, Total Protein 8.5 H, Albumin 4.2, Globulin 4.3 H, Albumin/Globulin Ratio 1.0 11/15/21 12:42: Ammonia 13.[address] 11/15/21 12:23 IMPRESSION: Chronic involutional changes of the brain. Electronically Signed: Bret Fox MD at 13:16 EDT , Chest X-Ray 11/15/21 13:20 IMPRESSION: Support devices: None. There are a few questionable patchy opacities in the right lower lobe which could relate to atelectasis and/or pneumonia. Otherwise, the remainder the lungs are clear with no sizable pleural effusion or pneumothorax. Cardiomediastinal silhouette is within normal limits. No acute findings in the bones or soft tissues. Electronically Signed: Goyo De Leon, at 13:37 EDT , Assessment & Plan Assessment/Plan (1) Confusion: PLAN: 1. Acute encephalopathy secondary to acute on chronic renal failure-patient will be admitted to PCU, she will be seen in consultation by nephrology and probably need dialysis today. #2 uncontrolled hypertension due to poor compliance with home medications- patient was given Catapres 0.2 mg in the ER today, I assume her blood pressure will correct somewhat after she has dialysis. #3 end-stage renal disease on dialysis-again nephrology will see the patient #4 hypercalcemia-probably secondary to renal failure, nephrology will address this, I will obtain a serum phosphorus. #5 noncompliance with medical regimen-I emphasized to the and the patient that she should take her medications as directed and not miss dialysis. I discussed CODE STATUS with the patient, she is agreed to a DNR CC arrest without intubation. Charges/Coding Visit Charges Inpatient E&M: 12845 Init Hosp L3
--- NOTE | 2021-11-15 14:28 | CON.PCM.RE_ITS ---
Assessment & Plan Assessment/Plan (1) End stage renal disease: PLAN: On hemodialysis 2 times a week. Last dialysis over a week ago. Noncompliance with her treatments. Discussed hospice but patient and patient spouse not ready for this. Will arrange dialysis today with next dialysis on Friday. She will go on her new schedule every Friday and Friday starting next week (2) Confusion: PLAN: Likely due to uremia, hypercalcemia. Noncompliance with dialysis treatments. (3) Hypertension: PLAN: BP elevated in the ER. Noncompliance with blood pressure medications at home recently per patient spouse (4) Hypercalcemia: PLAN: Calcium elevated at 12.3. Hold off on vitamin D, calcium stoll pplements, calcium based binders. Unclear what she has been taking at home. Vit D on home med list. Check PTH, vit D. Calcium normal in October at 9.4. (5) Tachycardia: PLAN: noncompliant with clonidine. Metoprolol as needed HPI Consult Data Date of Consult: 11/15/21 HPI Narrative Reason for Consultation: ESRD NONCOMPLIANCE HPI Narrative: SASHA HWANG, is a 80 F who presents to [place] emergency room for confusion. She has ESRD on hemodialysis twice a week due to hypertension. She has missed her dialysis for over a week with last treatment Friday. She recently transferred to [facility]. She is on hemodialysis twice a week every Friday and Friday. She refused to come in for her dialysis treatments. Her was unable to get her to go to dialysis. She has not been taking her blood pressure medications at home according to the patient spouse. Blood pressure is elevated in the emergency room. We will arrange for hemodialysis today in the hospital while admitted for uncontrolled hypertension and leukocytosis. She has an AV graft in her left upper arm with good thrill and bruit. She appears confused, poor historian. PFSH Home Medications Triphrocaps 1 mg PO DAILY 06/15/14 [History Last Taken 11/13/21] omeprazole 20 mg PO DAILY 06/16/14 [History Last Taken 11/13/21] simvastatin 20 mg PO QHS 06/16/14 [History Last Taken 11/13/21] azelastine 1 spray NASAL BID 07/30/15 [History Last Taken 05/17/16] albuterol sulfate [Ventolin HFA] 2 puff INHALATION Q4H PRN PRN #1 inhaler [Rx Last Taken Unknown] Prolia 60 mg SQ X1 10/04/18 [History Last Taken Unknown] calcium acetate(phosphat bind) 667 mg PO TID 10/04/18 [History Last Taken 11/13/21] clonidine HCl 0.1 mg PO QHS 10/04/18 [History Last Taken 11/13/21] ipratropium bromide 2 spray NASAL DAILY 10/04/18 [History Last Taken Unknown] Veltassa 8.4 g PO DAILY 10/06/18 [History Last Taken 11/13/21] lorazepam 1 mg PO QHS 10/06/18 [History Last Taken 11/13/21] loperamide 2 mg PO Q4H PRN PRN #20 capsule 10/07/18 [Rx Last Taken Unknown] hydralazine 25 mg PO TID 11/15/21 [History Last Taken Unknown] hydrocodone-acetaminophen 1 tab PO BID 11/15/21 [History Last Taken Unknown] mag [id number] rt xt 1 each PO DAILY 11/15/21 [History Last Taken 11/13/21] paroxetine HCl 30 mg PO DAILY 11/15/21 [History Last Taken 11/13/21] trazodone 50 mg PO QHS 11/15/21 [History Last Taken 11/13/21] Allergy/AdvReac Type Severity Reaction Status Date / Time amoxicillin [Amoxicillin] Allergy Other Verified 11/15/21 12:10 celecoxib [From Celebrex] Allergy Low red Verified 11/15/21 12:10 blood cells Penicillins Allergy Other Verified 11/15/21 12:10 aspirin AdvReac Other Verified 11/15/21 12:10 codeine AdvReac Other Verified 11/15/21 12:10 Social History Smoking Status: Never smoker ROS Review of Systems ROS Unobtainable: other Details: CONFUSION Constitutional Constitutional: Denies chills or fever(s) Eyes Eyes: Denies change in vision Cardiovascular Cardiovascular: Denies chest pain Gastrointestinal Gastrointestinal: Reports anorexia; Denies diarrhea, nausea or vomiting Genitourinary Genitourinary: Denies dysuria Musculoskeletal Musculoskeletal: Reports joint pain, muscle cramps and other Details: weakness Hematologic/Lymphatic Hematologic/Lymphatic: Reports anemia Physical Exam Const alert Constitutional Narrative: poor historian, pt spouse at bedside Resp clear to auscultation bilaterally Cardio Cardio Narrative: tachy GI non-tender and non-distended Auscultation: normoactive bowel sounds Palpation: soft Back/Spine Back/Spine Narrative: frail, thin Extremity no clubbing, cyanosis or edema General Extremity: AV fistula Skin no wounds Neuro Neuro Narrative: poor historian Sensorium / Orientation: awake and alert Psych cooperative Lab / Micro Data Result Diagrams: 11/15/21 12:42 11/15/21 12:42 Labs: Laboratory Results - last 24 hr 11/15/21 12:42: WBC 11.9 H, RBC 4.24, Hgb 14.4, Hct 43.9, MCV 103.5 H, MCH 34.0 H, MCHC 32.8, RDW Std Deviation 59.9 H, RDW Coeff of Joey 15.9 H, Plt Count 219, MPV 10.7, Immature Gran % (Auto) 0.300, Neut % (Auto) 79.7 H, Lymph % (Auto) 10.5 L, [place] % (Auto) 9.0, Eos % (Auto) 0.0, Baso % (Auto) 0.5, Absolute Neuts (auto) 9.5 H, Absolute Lymphs (auto) 1.25, Nucleated RBC % 0 11/15/21 12:42: Sodium 136, Potassium 5.0, Chloride 102, Carbon Dioxide 25.0, Anion Gap 9, BUN 68 H, Creatinine 7.71 H*, Estim Creat Clear Calc 4.08, Est GFR (MDRD) Af Amer 7 L, Est GFR (MDRD) Non-Af 5 L, BUN/Creatinine Ratio 8.8 L, Glucose 139 H, Calcium 12.3 H, Total Bilirubin 0.50, AST 28, ALT 21, Alkaline Phosphatase 75, Total Protein 8.5 H, Albumin 4.2, Globulin 4.3 H, Albumin/Globulin Ratio 1.0 11/15/21 12:42: Ammonia 13.[address] 11/15/21 12:23 IMPRESSION: Chronic involutional changes of the brain. Electronically Signed: Bret Fox MD at 13:16 EDT , Chest X-Ray 11/15/21 13:20 IMPRESSION: Support devices: None. There are a few questionable patchy opacities in the right lower lobe which could relate to atelectasis and/or pneumonia. Otherwise, the remainder the lungs are clear with no sizable pleural effusion or pneumothorax. Cardiomediastinal silhouette is within normal limits. No acute findings in the bones or soft tissues. Electronically Signed: Goyo De Leon, at 13:37 EDT ,
[2021-11-15 14:56] LABS: Phosphorus 7.9 mg/dL (2.5-4.9)
[2021-11-15 15:13] LABS: Mucous, Urine 0 SEEN /hpf (<or=2+)
[2021-11-15 15:36] LABS: Color, Urine Straw (Yellow); Glucose, Dipstick Normal (Normal); Ketone-Dipstick Negative (Negative); Leukocyte Esterase-Dipstick 500 /ul (Negative); Nitrite-Dipstick Negative (Negative); Occult Blood-Urine 50 /ul (Negative); Protein-Dipstick 500 mg/dl (Negative); Specific Gravity, Urine 1.015 (1.002-1.030); Urine Bilirubin Dipstick Negative (Negative); Urine Urobilinogen Normal (Normal)
[2021-11-15 15:39] LABS: Urine Clarity Sl Cloudy (Clear)
[2021-11-15 15:56] LABS: Red Blood Cells-Urine 0-5 SEEN /hpf (0-5); White Blood Cells 50-100 SEEN /hpf (0-5)
[2021-11-15 15:57] LABS: Bacteria 1+ /hpf (None Seen); Squamous Epithelial Cells - UA 10-25 SEEN /hpf (5-10)
[2021-11-15] MEDS: LORazepam 2 MG/ML Syringe 1 MG IV (17:28)
--- NOTE | 2021-11-15 19:38 | DIALYSIS ---
HD x 3 hours complete. Ran on 2k bath No fluid removed. Used left arm graft. [place] removed post tx and pressure applied x 10 minutes. Hemostasis achieved. Fresh gauze and tape applied. Report was given to DAYTON Daugherty
[2021-11-15] MEDS: Atorvastatin Calcium 10 MG Tablet PO (22:28)
[2021-11-15] MEDS: Heparin Injection (Vial) 5,000 UNIT/ML VIAL 5000 UNIT SC (22:28)
[2021-11-15] MEDS: traZODone 50 MG Tablet PO (22:28)
[2021-11-15] MEDS: LORazepam 1 MG Tablet PO (22:28)
[2021-11-15] MEDS: PARoxetine 10 MG Tablet PO (22:29)
[2021-11-16] VITALS (10 sets, daily range): BP systolic 128–151; BP diastolic 79–87; PULSE 88–130; RESP 14–16; TEMP 36.2–36.6; O2SAT 94–97
[2021-11-16 07:04] LABS: ALB/GLOB Ratio 0.7 RATIO (0.9-2.4); AST(SGOT) 43 U/L (15-37); Alanine Aminotransfer ALT/SGPT 20 U/L (13-56); Albumin, Serum 2.8 g/dL (3.2-5.0); Alkaline Phosphatase 60 U/L (45-117); Anion Gap 10 (5-15); BUN 21 mg/dL (7-18); BUN/Creat Ratio 5.7 RATIO (10-20); Calcium,Total 9.9 mg/dL (8.5-10.1); Chloride 102 mmol/L (98-107); Creatinine, Serum 3.66 mg/dL (0.55-1.02); EST Glomerular Filtration Rate 13 mL/min (>60); Est Glom Filt Rate - Afr Amer 15 mL/min (>60); Estimated Creatinine Clearance 8.19 ml/min; Globulin 4.1 g/dL (2.2-4.2); Glucose 81 mg/dL (74-106); Protein, Total 6.9 g/dL (6.4-8.2); Sodium Level 135 mmol/L (136-145)
[2021-11-16 09:19] LABS: Vitamin D,25 Hydroxy 58.4 ng/mL
[2021-11-16] MEDS: Heparin Injection (Vial) 5,000 UNIT/ML VIAL 5000 UNIT SC ×2 (09:29→22:11)
[2021-11-16] MEDS: Folic Acid/Vitamin B Comp W-C 1 Capsule 1 CAP PO (09:29)
[2021-11-16] MEDS: Pantoprazole Sodium 20 MG Tablet PO (09:29)
--- NOTE | 2021-11-16 11:43 | PN.HOSP_ITS ---
Documented by User: Wil CARLISLE 11/16/21 11:59 Subjective Subjective Patient is a 80-year-old female comfortably lying in bed, alert and orient x3. Patient's confusion has greatly improved from admission and she is without any new complaints. Does not appear in acute distress. Objective Data Objective Data Vital Signs: Vital Signs Temp Pulse Resp BP Pulse Ox 97.1 F L 112 H 14 148/87 H 94 11/16/21 08:00 11/16/21 11:20 11/16/21 08:00 11/16/21 08:00 11/16/21 08:00 Oxygen Delivery Method Room Air Weight: 93 lb 4.089 oz Body Mass Index (BMI) 20.2 Intake & Output: Intake and Output for Last 24 Hours 11/14/21 11/15/21 11/16/21 23:59 23:59 23:59 Intake Total 1000 / 1000 Output Total 500 / 500 Balance 1000 / 750 -500 / -500 Lab / Micro Data Result Diagrams: 11/15/21 12:42 11/16/21 05:38 Labs: Laboratory Results - last 24 hr 11/15/21 12:42: WBC 11.9 H, RBC 4.24, Hgb 14.4, Hct 43.9, MCV 103.5 H, MCH 34.0 H, MCHC 32.8, RDW Std Deviation 59.9 H, RDW Coeff of Joey 15.9 H, Plt Count 219, MPV 10.7, Immature Gran % (Auto) 0.300, Neut % (Auto) 79.7 H, Lymph % (Auto) 10.5 L, [place] % (Auto) 9.0, Eos % (Auto) 0.0, Baso % (Auto) 0.5, Absolute Neuts (auto) 9.5 H, Absolute Lymphs (auto) 1.25, Nucleated RBC % 0 11/15/21 12:42: Sodium 136, Potassium 5.0, Chloride 102, Carbon Dioxide 25.0, Anion Gap 9, BUN 68 H, Creatinine 7.71 H*, Estim Creat Clear Calc 4.08, Est GFR (MDRD) Af Amer 7 L, Est GFR (MDRD) Non-Af 5 L, BUN/Creatinine Ratio 8.8 L, Glucose 139 H, Calcium 12.3 H, Total Bilirubin 0.50, AST 28, ALT 21, Alkaline Phosphatase 75, Total Protein 8.5 H, Albumin 4.2, Globulin 4.3 H, Albumin/Glob ulin Ratio 1.0 11/15/21 12:42: Ammonia 13.0 11/15/21 12:42: Phosphorus 7.9 H 11/15/21 15:00: Urine Color Straw, Urine Clarity Sl Cloudy, Urine pH 7.0, Ur Specific [place] 1.015, Urine Protein 500 H, Urine Glucose (UA) Normal, Urine Ketones Negative, Urine Occult Blood 50 H, Urine Nitrite Negative, Urine Bilirubin Negative, Urine Urobilinogen Normal, Ur Leukocyte Esterase 500 H, Urine RBC 0-5 SEEN, Urine WBC 50-100 SEEN, Ur Squamous Epith Cells 10-25 SEEN, Urine Bacteria 1+, Urine Mucus 0 SEEN 11/16/21 05:38: Sodium 135 L, Potassium 4.0, Chloride 102, Carbon Dioxide 23.0, Anion Gap 10, BUN 21 H, Creatinine 3.66 H, Estim Creat Clear Calc 8.19, Est GFR (MDRD) Af Amer 15 L, Est GFR (MDRD) Non-Af 13 L, BUN/Creatinine Ratio 5.7 L, Glucose 81, Calcium 9.9, Total Bilirubin 0.50, AST 43 H, ALT 20, Alkaline Phosphatase 60, Total Protein 6.9, Albumin 2.8 L, Globulin 4.1, Albumin/Globulin Ratio 0.7 L 11/16/21 06:55: Vitamin D 25-Hydroxy 58.4 Radiography Diagnostic Testing: Radiology Impression Brain CT 11/15/21 12:23 IMPRESSION: Chronic involutional changes of the brain. Electronically Signed: Bret Fox MD at 13:16 EDT , Chest X-Ray 11/15/21 13:20 IMPRESSION: Support devices: None. There are a few questionable patchy opacities in the right lower lobe which could relate to atelectasis and/or pneumonia. Otherwise, the remainder the lungs are clear with no sizable pleural effusion or pneumothorax. Cardiomediastinal silhouette is within normal limits. No acute findings in the bones or soft tissues. Electronically Signed: Goyo De Leon, at 13:37 EDT , Physical Exam Const alert, oriented x3 and no apparent distress HEENT head/scalp atraumatic and moist oral mucous membranes Head and Scalp: normocephalic Eyes PERRL and conjunctivae normal Neck no lymphadenopathy, supple and no JVD Resp normal respiratory effort, no retractions and no use of accessory muscles Cardio regular rate, regular rhythm and no JVD GI normal to inspection, nondistended, normoactive bowel sounds Extremity normal to inspection Skin no rashes or lesions noted Neuro CN's II-XII intact bilaterally Psych affect normal Assessment & Plan Assessment/Plan (1) Confusion: PLAN: Day 1 Discharge planning: Current plan is for patient to discharge home. 1) acute encephalopathy secondary to noncompliance with dialysis treatments Likely related to uremia and hypercalcemia, patient will be dialyzed today and tomorrow given recent missed dialysis appointments. 2) ESRD Nephrology consulted, will dialyze as above. 3) hypercalcemia Currently 9.9, phosphorus was 7.0 on admission. Nephrology following, will dialyze. 4) HTN Elevated. Continue clonidine, will reevaluate after dialysis treatment. 5) GERD Continue PPI. 6) hyperlipidemia Continue statin. 7) depression/anxiety Continue paroxetine and Ativan. DVT Prophyalxis - Heparin Patient seen by Wil Ponce PA-C, under the supervision of Dr. Ozuna. Time spent on patient care: 10 minutes. Documented by User: Dr. Mamadou Ozuna DO 11/16/21 14:16 Subjective Subjective Doing better today. Did receive dialysis on then plan is again again on the . notes that the patient may have been taking medications in appropriately at home. Objective Data Lab / Micro Data Result Diagrams: 11/15/21 12:42 11/16/21 05:38 Physical Exam Const alert and oriented x3 Constitutional Narrative: Blue hair Resp normal respiratory effort, no retractions, no use of accessory muscles and clear to auscultation bilaterally Cardio regular rate, regular rhythm, S1 normal heart sound and S2 normal heart sound GI normal to inspection, nondistended, normoactive bowel sounds, soft to palpation, non-tender and non-distended Extremity Extremity Narrative: Palpable thrill in left upper extremity fistula Psych affect normal Assessment & Plan Assessment/Plan (1) Confusion: PLAN: Patient seen and examined independently. Data and vitals reviewed. I agree with the above note by the physician bankruptcy legal assistant. 1. Encephalopathy Suspect metabolic possibly uremic due to missing dialysis. But also could be a component of toxic if patient was taking her hydrocodone and lorazepam inappropriately. Or the combination of those medications and uremia may have just caused her to be more confused. Now resolved and patient is certainly appropriate. 2. End-stage renal disease Had dialysis on and again will be dialyzed on the . Patient continues to do well then patient will be likely discharged afterwards. 3. Hypercalcemia Resolved with dialysis that may have also been contributing to her confusion as well. Monitor. No additional work-up necessary at this point time since it is improved. 4. Noncompliance Was try to get a sense of why the patient was missing dialysis and may have just been the fact that she was confused and was saying now. Emphasized to the patient's that about her being confused and not adequately making educated decisions. 5. VTE prophylaxis with heparin Greater than 20 minutes of which greater than 50% time was discussing with patient and her at bedside about the encephalopathy, importance of dialysis. Charges/Coding Visit Charges Inpatient E&M: 22420 Subs Hosp L2
[2021-11-16] MEDS: PARoxetine 10 MG Tablet PO (17:21)
[2021-11-16] MEDS: LORazepam 1 MG Tablet PO (22:10)
[2021-11-16] MEDS: cloNIDine HCl 0.1 MG Tablet PO (22:10)
[2021-11-16] MEDS: traZODone 50 MG Tablet PO (22:11)
[2021-11-16] MEDS: Atorvastatin Calcium 10 MG Tablet PO (22:11)
[2021-11-17 01:07] VITALS: BP 131/75; PULSE 118; RESP 18; TEMP 36.4; O2SAT 92
[2021-11-17 02:43] VITALS: PULSE 119
[2021-11-17 04:22] VITALS: BP 152/88; PULSE 99; RESP 16; TEMP 36.5; O2SAT 96
[2021-11-17 05:29] LABS: Absolute Lymphocyte Count 2.05 X10^3/uL (0.83-4.51); Absolute Neutrophil Count 7.1 X10^3/uL (2.0-7.7); Basophil# 0.06 X10^3/uL; Basophil% 0.6 % (0-1); Eosinophil# 0.22 X10^3/uL; Hematocrit 39.7 % (37-47); Hemoglobin 12.8 g/dL (12.0-15.0); Lymphocyte # 2.05 X10^3/ul (0.83-4.51); Lymphocyte % 18.9 % (19-41); Mean Corp Hgb Conc 32.2 g/dL (32-36); Mean Corpuscular Hgb 32.7 pg (27.0-32.0); Mean Corpuscular Volume 101.5 fL (81-99); Mean Platelet Vol. 11.1 fl (6.2-12.0); Monocyte# 1.45 X10^3/uL; Monocyte% 13.3 % (0-10); NRBC Flagged by Analyzer 0 % (0-5); Neutrophil # 7.06 X10^3/uL (2.7-7.7); Neutrophil % 64.9 % (47-70); Platelet Count 160 K/mm3 (150-450); RBC Distribution Width CV 15.3 % (11.6-14.6); RBC Distribution Width SD 56.6 fl (35.1-43.9); Red Blood Count 3.91 M/mm3 (4.2-5.4); White Blood Count 10.9 K/mm3 (4.4-11.0)
[2021-11-17 06:05] LABS: Anion Gap 8 (5-15); BUN 47 mg/dL (7-18); BUN/Creat Ratio 9.7 RATIO (10-20); Calcium,Total 10.2 mg/dL (8.5-10.1); Chloride 97 mmol/L (98-107); Creatinine, Serum 4.87 mg/dL (0.55-1.02); EST Glomerular Filtration Rate 9 mL/min (>60); Est Glom Filt Rate - Afr Amer 11 mL/min (>60); Estimated Creatinine Clearance 6.15 ml/min; Glucose 104 mg/dL (74-106); Sodium Level 134 mmol/L (136-145)
[2021-11-17 07:45] VITALS: PULSE 102
[2021-11-17 08:00] VITALS: BP 150/84; PULSE 97; RESP 18; TEMP 36.8; O2SAT 94
--- NOTE | 2021-11-17 08:45 | PCM.PN.BLA ---
Progress Note dialysis today, run on low calcium bath due to elevated level today. Vit D 25 level wnl. BP improved. Assessment & Plan Assessment/Plan (1) End stage renal disease: PLAN: On hemodialysis 2 times a week. Dialysis today. Next tx Friday, Friday at chronic unit starting this week. Hopefully she will be compliant with her treatments. Hx noncompliance (2) Confusion: PLAN: Likely due to uremia, hypercalcemia resolved. (3) Hypertension: PLAN: BP stable (4) Hypercalcemia: PLAN: Calcium improved with dialysis. Run on low calcium 2.0 bath. Sthop all calcium based binders and vit D supplement (5) Tachycardia: PLAN: Metoprolol instead of clonidine for hypertension. pt stopped taking BP meds at home prior to admit
[2021-11-17] MEDS: Potassium Chloride Oral Tablet 20 MEQ PO (09:13)
[2021-11-17 09:21] LABS: Phosphorus 5.9 mg/dL (2.5-4.9)
--- NOTE | 2021-11-17 10:00 | PCM.DC ---
Discharge Instructions Diet Discharge Diet: No restrictions Activity Discharge Activity: Return to Normal Activity Weight Bearing Status: Weight bearing as tolerated Dressing / Incision Call your doctor if you observe: Fever of 101 or Higher, Numbness or Tingling, Shortness of breath, Dizziness, Chest pain, Increased palpitations (irregular heartbeat) and Calf discomfort Follow Up Care Please Follow Up With: Primary care provider When: Within the next two weeks. Test Results: Test results from this visit will be discussed in further detail at your follow-up appointment, if applicable. Discharge Plan Admission Admit Date/Time: 11/15/21 14:32 Primary Reason for Your Visit: Dialysis noncompliance Attending Provider: Mamadou Ozuna Primary Care Provider: Angel Casey Consulting Providers: Chanel Barriga Instructions Additional Instructions / Restrictions: * Your new dialysis appointments will take place on Friday & Friday. It is imperative that you are compliant with these appointments. * Without dialysis, your Kidney disease will continue to get worse and could result in . Discharge Orders/Prescriptions Prescriptions: Continued Triphrocaps 1 MG capsule 1 mg PO DAILY RF: 0 simvastatin 20 MG tablet 20 mg PO QHS RF: 0 omeprazole 20 MG capsule 20 mg PO DAILY RF: 0 azelastine 1 SPRAY aerosol,spray 1 spray NASAL BID RF: 0 albuterol sulfate [Ventolin HFA] 1 INHALER inhaler 2 puff inhalation Q4H PRN PRN (Reason: Wheezing) Qty: 1 RF: 0 ipratropium bromide 1 SPRAY spray,non-aerosol 2 spray NASAL DAILY RF: 0 calcium acetate(phosphat bind) 667 MG capsule 667 mg PO TID RF: 0 Prolia 60 MG/ML syringe 60 mg SQ X1 RF: 0 clonidine HCl 0.1 MG tablet 0.1 mg PO QHS RF: 0 lorazepam 1 MG tablet 1 mg PO QHS RF: 0 Veltassa 8.4 GM powder in packet 8.4 g PO DAILY RF: 0 loperamide 2 MG capsule 2 mg PO Q4H PRN PRN (Reason: Diarrhea) Qty: 20 RF: 0 hydrocodone-acetaminophen 5-325 mg tablet 1 tab PO BID RF: 0 hydralazine 25 mg tablet 25 mg PO TID RF: 0 paroxetine HCl 20 mg tablet 30 mg PO DAILY RF: 0 trazodone 50 mg tablet 50 mg PO QHS RF: 0 mag [id number]-[id number]-pikmzddx rt xt 1 EACH tablet 1 each PO DAILY RF: 0 Referrals / Follow Up: Chanel Barriga DO [STAFF PHYSICIAN] - See Referral Note (Follow up with Dr. Barriga at your dialysis appointments. ) Angel Casey DO [Primary Care Provider] - Within 2 Weeks Disposition Disposition (needs filled in before D/C Order can be placed): Home, Self Care
--- NOTE | 2021-11-17 11:27 | DIALYSIS ---
Hemodialysis tx completed x 3 hours without complications. Pt tolerated tx well, no fluid removed per order. Vitals stable throughout tx. Verbal report given to DAYTON Martin post tx.
[2021-11-17] MEDS: Pantoprazole Sodium 20 MG Tablet PO (12:22)
[2021-11-17] MEDS: Folic Acid/Vitamin B Comp W-C 1 Capsule 1 CAP PO (12:22)
[2021-11-17] MEDS: Heparin Injection (Vial) 5,000 UNIT/ML VIAL 5000 UNIT SC (12:24)
--- NOTE | 2021-11-17 12:32 | DS.PCM_ITS ---
Documented by User: Wil CARLISLE 11/17/21 12:36 Providers Date of Admission: 11/15/21 Date of Discharge: 11/17/21 Primary Care Physician: Dr. Angel Casey, Consultations 11/15/21 16:19 Consult: Nephrology Routine Consulting Provider: Chanel Barriga Reason for Consult: renal failure EMERGENT Consult: Yes MD Notified: Yes Date Notified: 11/15/21 Time Notified: 14:36 Method of Notification: Text Reason For Visit: acute on chronic kidney inj,dehydration,hypertensi Diagnosis Discharge Diagnosis (1) End stage renal disease: Status: Chronic Code(s): N18.6 - End stage renal disease (2) Confusion: Status: Acute Code(s): R41.0 - Disorientation, unspecified (3) Hypertension: Status: Chronic Code(s): I10 - Essential (primary) hypertension (4) Hypercalcemia: Status: Acute Code(s): E83.52 - Hypercalcemia (5) Tachycardia: Status: Acute Code(s): R00.0 - Tachycardia, unspecified Medications at Discharge Home Medications Triphrocaps 1 mg PO DAILY 06/15/14 omeprazole 20 mg PO DAILY 06/16/14 simvastatin 20 mg PO QHS 06/16/14 azelastine 1 spray NASAL BID 07/30/15 albuterol sulfate [Ventolin HFA] 2 puff INHALATION Q4H PRN PRN #1 inhaler 05/17/16 Prolia 60 mg SQ X1 10/04/18 calcium acetate(phosphat bind) 667 mg PO TID 10/04/18 clonidine HCl 0.1 mg PO QHS 10/04/18 ipratropium bromide 2 spray NASAL DAILY 10/04/18 Veltassa 8.4 g PO DAILY 10/06/18 lorazepam 1 mg PO QHS 10/06/18 loperamide 2 mg PO Q4H PRN PRN #20 capsule 10/07/18 hydralazine 25 mg PO TID 11/15/21 hydrocodone-acetaminophen 1 tab PO BID 11/15/21 mag [id number] rt xt 1 each PO DAILY 11/15/21 paroxetine HCl 30 mg PO DAILY 11/15/21 trazodone 50 mg PO QHS 11/15/21 Hospital Course Procedures Dialysis Summary of Care Provided Minutes Spent on Discharge: 20 Hospital Course: Patient is an 80-year-old female who was admitted to [facility] on 11/15/2021 for evaluation and management of encephalopathy secondary to uremia and hypercalcemia from missed dialysis appointments. Patient does have ESRD and sees Dr. Barriga for management of her dialysis. Dr. Barriga was consulted during admission and patient was dialyzed twice, once on 11/15 and another on day of discharge on 11/17. Dr. Barriga adjusted patient's dialysis schedule to a Friday and Friday schedule, to be more accommodating to patient's schedule. Patient was advised that it is imperative that she makes her dialysis appointment as this could result in worsening of her ESRD which could result in . Patient and voiced understanding. No other home medication changes were made and patient is to follow-up with Dr. Barriga and her primary care provider accordingly. Patient seen by Wil Ponce PA-C, under the supervision of Dr. Ozuna. Time spent on patient care: 20 minutes. Physical Exam Narrative Patient is an 80-year-old female comfortably resting in bed, alert and oriented x3. Patient denies development of any new symptoms overnight. Does not appear in acute distress. Const alert, oriented x3 and no apparent distress HEENT normocephalic, head/scalp atraumatic and hearing grossly normal bilaterally Eyes PERRL and conjunctivae normal Neck no lymphadenopathy, supple and no JVD Resp normal respiratory effort, no retractions and no use of accessory muscles Cardio regular rate, regular rhythm and no JVD GI normal to inspection, nondistended, normoactive bowel sounds Extremity normal to inspection Skin no rashes or lesions noted Neuro CN's II-XII intact bilaterally Psych affect normal Weight / BMI Weight Weight: 93 lb 4.089 oz Body Mass Index (BMI) 20.2 ABG / Lab / Microbiology Data Result Diagrams: 11/17/21 04:32 11/17/21 04:32 Laboratory: Laboratory Results - last 24 hr 11/17/21 04:32: WBC 10.9, RBC 3.91 L, Hgb 12.8, Hct 39.7, MCV 101.5 H, MCH 32.7 H, MCHC 32.2, RDW Std Deviation 56.6 H, RDW Coeff of Jeoy 15.3 H, Plt Count 160, MPV 11.1, Immature Gran % (Auto) 0.300, Neut % (Auto) 64.9, Lymph % (Auto) 18.9 L, [place] % (Auto) 13.3 H, Eos % (Auto) 2.0, Baso % (Auto) 0.6, Absolute Neuts (auto) 7.1, Absolute Lymphs (auto) 2.05, Nucleated RBC % 0 11/17/21 04:32: Sodium 134 L, Potassium 4.0, Chloride 97 L, Carbon Dioxide 29.0, Anion Gap 8, BUN 47 H, Creatinine 4.87 H, Estim Creat Clear Calc 6.15, Est GFR (MDRD) Af Amer 11 L, Est GFR (MDRD) Non-Af 9 L, BUN/Creatinine Ratio 9.7 L, Glucose 104, Calcium 10.2 H 11/17/21 04:32: Phosphorus 5.9 H D/C Instructions Discharge Diet: No restrictions Weight Bearing Status: Weight bearing as tolerated Call your doctor if you observe: Fever of 101 or Higher, Numbness or Tingling, Shortness of breath, Dizziness, Chest pain, Increased palpitations (irregular heartbeat) and Calf discomfort Please Follow Up With: Primary care provider When: Within the next two weeks. Meaningful Use Info Meaningful Use Diagnoses (Choose all that apply): None applicable Discharge Plan Admission Admit Date/Time: 11/15/21 14:32 Primary Reason for Your Visit: Dialysis noncompliance Attending Provider: Mamadou Ozuna Primary Care Provider: Angel Casey Consulting Providers: Chanel Barriga Instructions Additional Instructions / Restrictions: * Your new dialysis appointments will take place on Friday & Friday. It is imperative that you are compliant with these appointments. * Without dialysis, your Kidney disease will continue to get worse and could result in . Discharge Orders/Prescriptions Prescriptions: Continued Triphrocaps 1 MG capsule 1 mg PO DAILY RF: 0 simvastatin 20 MG tablet 20 mg PO QHS RF: 0 omeprazole 20 MG capsule 20 mg PO DAILY RF: 0 azelastine 1 SPRAY aerosol,spray 1 spray NASAL BID RF: 0 albuterol sulfate [Ventolin HFA] 1 INHALER inhaler 2 puff inhalation Q4H PRN PRN (Reason: Wheezing) Qty: 1 RF: 0 ipratropium bromide 1 SPRAY spray,non-aerosol 2 spray NASAL DAILY RF: 0 calcium acetate(phosphat bind) 667 MG capsule 667 mg PO TID RF: 0 Prolia 60 MG/ML syringe 60 mg SQ X1 RF: 0 clonidine HCl 0.1 MG tablet 0.1 mg PO QHS RF: 0 lorazepam 1 MG tablet 1 mg PO QHS RF: 0 Veltassa 8.4 GM powder in packet 8.4 g PO DAILY RF: 0 loperamide 2 MG capsule 2 mg PO Q4H PRN PRN (Reason: Diarrhea) Qty: 20 RF: 0 hydrocodone-acetaminophen 5-325 mg tablet 1 tab PO BID RF: 0 hydralazine 25 mg tablet 25 mg PO TID RF: 0 paroxetine HCl 20 mg tablet 30 mg PO DAILY RF: 0 trazodone 50 mg tablet 50 mg PO QHS RF: 0 mag [id number] rt xt 1 EACH tablet 1 each PO DAILY RF: 0 Referrals / Follow Up: Chanel Barriga DO [STAFF PHYSICIAN] - See Referral Note (Follow up with Dr. Barriga at your dialysis appointments. ) Angel Casey DO [Primary Care Provider] - Within 2 Weeks Disposition Disposition (needs filled in before D/C Order can be placed): Home, Self Care Documented by User: Dr. Mamadou Ozuna DO 11/17/21 14:10 Providers Date of Admission: 11/15/21 Reason For Visit: acute on chronic kidney inj,dehydration,hypertensi Medications at Discharge Home Medications Triphrocaps 1 mg PO DAILY 06/15/14 omeprazole 20 mg PO DAILY 06/16/14 simvastatin 20 mg PO QHS 06/16/14 azelastine 1 spray NASAL BID 07/30/15 albuterol sulfate [Ventolin HFA] 2 puff INHALATION Q4H PRN PRN #1 inhaler 05/17/16 Prolia 60 mg SQ X1 10/04/18 calcium acetate(phosphat bind) 667 mg PO TID 10/04/18 clonidine HCl 0.1 mg PO QHS 10/04/18 ipratropium bromide 2 spray NASAL DAILY 10/04/18 Veltassa 8.4 g PO DAILY 10/06/18 lorazepam 1 mg PO QHS 10/06/18 loperamide 2 mg PO Q4H PRN PRN #20 capsule 10/07/18 hydralazine 25 mg PO TID 11/15/21 hydrocodone-acetaminophen 1 tab PO BID 11/15/21 mag [id number] rt xt 1 each PO DAILY 11/15/21 paroxetine HCl 30 mg PO DAILY 11/15/21 trazodone 50 mg PO QHS 11/15/21 Hospital Course Operations None Procedures None and Dialysis Summary of Care Provided Minutes Spent on Discharge: 35 Hospital Course: Patient seen and examined independently. Data and vitals reviewed. I agree with the above note by the physician virtual assistant for advertisers. This is an 80-year-old female presents with confusion. She patient admits dialysis. Patient normally on dialysis twice a week and I was confused refusing to go to the hospital despite her 's assistance to the point where it was untenable. In the meantime, patient was taking her medications according to her haphazardly. So patient did have hemodialysis on the and mental status improved. Patient would receive dialysis today, the and then cont inue with dialysis every Friday and Friday. It was emphasized to the patient and her to follow through on getting hemodialysis and strict management of medications. Physical Exam Const alert Resp normal respiratory effort, no retractions, no use of accessory muscles and clear to auscultation bilaterally Cardio regular rate, regular rhythm, S1 normal heart sound and S2 normal heart sound GI normal to inspection, nondistended, normoactive bowel sounds, soft to palpation, non-tender and non-distended ABG / Lab / Microbiology Data Result Diagrams: 11/17/21 04:32 11/17/21 04:32 Discharge Plan Admission Admit Date/Time: 11/15/21 14:32 Primary Reason for Your Visit: Dialysis noncompliance Attending Provider: Mamadou Ozuna Primary Care Provider: Angel Casey Consulting Providers: Chanel Barriga Instructions Additional Instructions / Restrictions: * Your new dialysis appointments will take place on Friday & Friday. It is imperative that you are compliant with these appointments. * Without dialysis, your Kidney disease will continue to get worse and could result in . Discharge Orders/Prescriptions Prescriptions: Continued Triphrocaps 1 MG capsule 1 mg PO DAILY RF: 0 simvastatin 20 MG tablet 20 mg PO QHS RF: 0 omeprazole 20 MG capsule 20 mg PO DAILY RF: 0 azelastine 1 SPRAY aerosol,spray 1 spray NASAL BID RF: 0 albuterol sulfate [Ventolin HFA] 1 INHALER inhaler 2 puff inhalation Q4H PRN PRN (Reason: Wheezing) Qty: 1 RF: 0 ipratropium bromide 1 SPRAY spray,non-aerosol 2 spray NASAL DAILY RF: 0 calcium acetate(phosphat bind) 667 MG capsule 667 mg PO TID RF: 0 Prolia 60 MG/ML syringe 60 mg SQ X1 RF: 0 clonidine HCl 0.1 MG tablet 0.1 mg PO QHS RF: 0 lorazepam 1 MG tablet 1 mg PO QHS RF: 0 Veltassa 8.4 GM powder in packet 8.4 g PO DAILY RF: 0 loperamide 2 MG capsule 2 mg PO Q4H PRN PRN (Reason: Diarrhea) Qty: 20 RF: 0 hydrocodone-acetaminophen 5-325 mg tablet 1 tab PO BID RF: 0 hydralazine 25 mg tablet 25 mg PO TID RF: 0 paroxetine HCl 20 mg tablet 30 mg PO DAILY RF: 0 trazodone 50 mg tablet 50 mg PO QHS RF: 0 mag [id number] rt xt 1 EACH tablet 1 each PO DAILY RF: 0 Referrals / Follow Up: Chanel Barriga DO [STAFF PHYSICIAN] - See Referral Note (Follow up with Dr. Barriga at your dialysis appointments. ) Angel Casey DO [Primary Care Provider] - Within 2 Weeks Disposition Disposition (needs filled in before D/C Order can be placed): Home, Self Care Charges/Coding Visit Charges Inpatient E&M: 65207 Disch Hosp
[2021-11-17 14:50] VITALS: BP 141/72; PULSE 102; RESP 18; TEMP 37.1; O2SAT 94
[2021-11-17] MEDS: Acetaminophen 325 MG Tablet 650 MG PO (14:56)
[2021-11-18 15:59] LABS: Vitamin D 1,25-Dihydroxy 22.7 pg/mL (19.9-79.3)
== END 2021-11-17 15:18 | disposition home or self-care (01) | DRG 682 ==
LOC: ED 14:03 → PCU 11-16 07:07
PROVIDERS: Internal Medicine Nephrology; Physician Assistant; Admitting Provider Internal Medicine; Emergency Provider Emergency Medicine; PCP Family Medicine
DX: I12.0 Hypertensive chronic kidney disease with stage 5 chronic kidney disease or end stage renal disease (principal); Z99.2 Dependence on renal dialysis; Z91.15 Patient's noncompliance with renal dialysis; N17.9 Acute kidney failure, unspecified; N18.6 End stage renal disease; G93.41 Metabolic encephalopathy; E83.52 Hypercalcemia; E78.5 Hyperlipidemia, unspecified; K21.9 Gastro-esophageal reflux disease without esophagitis; F41.9 Anxiety disorder, unspecified; Z66 Do not resuscitate; F32.A Depression, unspecified; Z91.14 Patient's other noncompliance with medication regimen; Z79.899 Other long term (current) drug therapy; R00.0 Tachycardia, unspecified; E86.0 Dehydration
CPT/HCPCS: 36415; 70450; 71045; 80048; 80053; 81001; 82140; 82306; 82652; 84100; 85025; 90937; 93005; 96361; 96372; 96374; 97162; 97166; 97530; 97802; 99218; 99284; J7030; A4216; G0257; G0378

== ENCOUNTER 2022-03-28 14:59 | Outpatient (CLI) | payer MEDICARE, SELFPAY ==
[2022-03-28 16:55] LABS: Amphetamine Urine VISTA NEGATIVE (<1000 ng/mL); Barbiturate Urine VISTA NEGATIVE (< 200 ng/mL); Benzodiazepine Urine VISTA NEGATIVE (< 200 ng/mL); Cocaine Urine VISTA NEGATIVE (< 300 ng/mL); Ecstacy Urine VISTA NEGATIVE (< 500 ng/mL); Methadone Urine VISTA NEGATIVE (< 300 ng/mL); PCP Urine VISTA NEGATIVE (< 25 ng/mL); THC Urine VISTA NEGATIVE (< 50 ng/mL); Vista UDS pH Range 8
== END 2022-03-28 23:59 | disposition home or self-care (01) ==
LOC: LAB 15:05
PROVIDERS: PCP Family Medicine; Visit Provider Anesthesiology Pain Medicine
DX: F11.20 Opioid dependence, uncomplicated (principal)
CPT/HCPCS: 80307

== ENCOUNTER → 2022-11-19 | Outpatient (CLI) | payer MEDICARE, SELFPAY ==
--- NOTE | 2022-11-19 15:40 | RAD_ITS ---
INDICATION: PAIN EXAMINATION/TECHNIQUE: X-RAY - XR Hips Bilateral with Pelvis when performed; 2 Views COMPARISON: July 13, 2020 FINDINGS: Degenerative changes and moderate scoliosis lumbar spine. Diffuse demineralization decreases sensitivity. PELVIC BONES: Old fractures superior and inferior pubic rami on the left. Note that overlapping bowel shadows may however obscure fine detail. Sacroiliac joints are unremarkable. No widening of the pubic symphysis. HIPS: Severe narrowing sclerosis and osteophytosis left hip and moderate narrowing right hip. No displaced fracture seen in this frontal view. SOFT TISSUES: No soft tissue swelling or gas. RAD/Hips B/L min 2 views w/ Pelvis IMPRESSION: No acute fracture but sensitivity limited due to demineralization. Old fractures left superior and inferior pubic rami. Severe DJD demonstrated interval progression, left greater than right. Electronically Signed: Trevor Riggs MD at 17:40 EDT ,
== END | disposition home or self-care (01) ==
LOC: RAD 15:31
PROVIDERS: PCP Family Medicine; Visit Provider Anesthesiology Pain Medicine
DX: M16.0 Bilateral primary osteoarthritis of hip (principal)
CPT/HCPCS: 73521

== ENCOUNTER 2022-11-25 10:45 | Observation (INO) | payer MEDICARE, SELFPAY ==
[2022-11-25] VITALS (8 sets, daily range): BP systolic 124–188; BP diastolic 73–89; PULSE 72–83; RESP 13–18; TEMP 36.6–36.8; O2SAT 91–94; BMI 19.2; BMI 21.7
--- NOTE | 2022-11-25 11:55 | EKG12_ITS ---
Test Reason : MEDICAL Blood Pressure : / mmHG Vent. Rate : 077 BPM Atrial Rate : 077 BPM P-R Int : 220 ms QRS Dur : 086 ms QT Int : 410 ms P-R-T Axes : 057 013 038 degrees QTc Int : 463 ms Sinus rhythm with 1st degree A-V block Otherwise normal ECG Confirmed by ZAYRA FERREIRA, GRACE ([id number]), supervising editor news reel TIFFANI PANDA ([id number]) on 11/27/2022 9:52:40 AM Referred By: DENNIS/ANG Confirmed By:GRACE IVERSON MD
[2022-11-25 12:35] LABS: Absolute Lymphocyte Count 0.48 X10^3/uL (0.83-4.51); Absolute Neutrophil Count 7.8 X10^3/uL (2.0-7.7); Basophil# 0.03 X10^3/uL; Basophil% 0.3 % (0-1); Eosinophil# 0.06 X10^3/uL; Eosinophils% 0.7 % (0-5); Hemoglobin 9.8 g/dL (12.0-15.0); Lymphocyte # 0.48 X10^3/ul (0.83-4.51); Lymphocyte % 5.3 % (19-41); Mean Corp Hgb Conc 31.6 g/dL (32-36); Mean Corpuscular Hgb 30.5 pg (27.0-32.0); Mean Corpuscular Volume 96.6 fL (81-99); Mean Platelet Vol. 11.1 fl (6.2-12.0); Monocyte# 0.61 X10^3/uL; Monocyte% 6.7 % (0-10); NRBC Flagged by Analyzer 0 % (0-5); Neutrophil # 7.83 X10^3/uL (2.7-7.7); POSITIVE DIFFERENTIAL YES; Platelet Count 200 K/mm3 (150-450); RBC Distribution Width CV 18.5 % (11.6-14.6); RBC Distribution Width SD 64.5 fl (35.1-43.9); Red Blood Count 3.21 M/mm3 (4.2-5.4); White Blood Count 9.1 K/mm3 (4.4-11.0)
[2022-11-25 12:36] LABS: Differential Indicated SCAN CRITERIA MET
[2022-11-25 12:45] LABS: Anion Gap 16 (5-15); BUN 87 mg/dL (7-18); Calcium,Total 8.3 mg/dL (8.5-10.1); Chloride 104 mmol/L (98-107); Creatinine, Serum 9.67 mg/dL (0.55-1.02); EST Glomerular Filtration Rate 4 mL/min (>60); Est Glom Filt Rate - Afr Amer 5 mL/min (>60); Estimated Creatinine Clearance 3.01 ml/min; Glucose 95 mg/dL (74-106); Potassium 5.3 mmol/L (3.5-5.1); Sodium Level 136 mmol/L (136-145)
--- NOTE | 2022-11-25 12:50 | RAD_ITS ---
STUDY: X-RAY CHEST REASON FOR EXAM: Female, 81 years old. 3 day history of cough, sore throat and diarrhea. TECHNIQUE: Single AP portable view of the chest. COMPARISON: Comparison is made with prior study dated November 15, 2021. FINDINGS: EKG electrodes are seen. Mild degree of vascular congestion and CHF. There is no demonstrated pleural abnormality. Normal size heart. Normal mediastinum and karly. Normal visualized pulmonary arteries. There is atherosclerotic calcification of the aortic arch with tortuosity. There are diffuse degenerative changes of the visualized thoracic spine. Prior vertebroplasty of the T12 vertebra. Normal visualized ribs, clavicles, and shoulders. There is no demonstrated abnormality of the visualized soft tissue structures of the upper abdomen. RAD/Chest 1 View (Portable) IMPRESSION: Mild cardiomegaly and mild degree of CHF. Electronically Signed: Mendoza Beebe MD at 13:23 EDT ,
[2022-11-25 12:57] LABS: Differential Comment SCANNED
--- NOTE | 2022-11-25 13:59 | EDS_ITS ---
HPI History of Present Illness Chief Complaint: General Illness Informant: patient Onset/Context/Timing Onset: Weeks Context: Gradual Onset Narrative Narrative: Patient presents with 1 week history of generalized illness. She states she initially developed diarrhea but that seems to be resolved. She has cough and sore throat. She has not had a fever. She does dialysis on Friday, Friday, and Friday. She missed her treatment on Friday because she did not feel well. [facility] Medical History ESRD needing dialysis Hypertension Osteoarthritis Home Medications vitamin B complex and vitamin C no.20-folic acid 1 mg capsule (Triphrocaps) 1 mg PO DAILY SUPPLEMENT 06/15/14 [History Last Taken 11/13/21] omeprazole 20 mg capsule,delayed release 20 mg PO DAILY REFLUX 06/16/14 [History Last Taken 11/13/21] simvastatin 20 mg tablet 20 mg PO QHS CHOLESTEROL 06/16/14 [History Last Taken 11/13/21] azelastine 137 mcg (0.1 %) nasal spray aerosol 1 spray BID NASAL SPRAY 07/30/15 [History Last Taken 05/17/16] albuterol sulfate 90 mcg/actuation aerosol inhaler (Ventolin HFA) 2 puff inhalation Q4H PRN PRN Wheezing ##1 05/17/16 [Rx Last Taken Unknown] calcium acetate(phosphat bind) 667 mg capsule 667 mg PO TID VITAMIN 10/04/18 [History Last Taken 11/13/21] clonidine HCl 0.1 mg tablet 0.1 mg PO QHS bLOOD pRESSURE 10/04/18 [History Last Taken 11/13/21] denosumab 60 mg/mL subcutaneous syringe (Prolia) 60 mg SQ X1 POLIO 10/04/18 [History Last Taken Unknown] ipratropium bromide 42 mcg (0.06 %) nasal spray 2 spray DAILY NASAL SPRAY 10/04/18 [History Last Taken Unknown] lorazepam 1 mg tablet 1 mg PO QHS SLEEP 10/06/18 [History Last Taken 11/13/21] patiromer calcium sorbitex 8.4 gram oral powder packet (Veltassa) 8.4 g PO DAILY LOWERS POTASSIUM 10/06/18 [History Last Taken 11/13/21] loperamide 2 mg capsule 2 mg PO Q4H PRN PRN Diarrhea ##20 10/07/18 [Rx Last Taken Unknown] hydralazine 25 mg tablet 25 mg PO TID ANXIETY 11/15/21 [History Last Taken Unknown] hydrocodone-acetaminophen 5-325mg 5mg-325mg 1 tab PO BID PAIN 11/15/21 [History Last Taken Unknown] magnesium oxide 500 mg-vit D3 3,000 unit-turmeric root 150 mg tablet 1 each PO DAILY SUPPLEMENT 11/15/21 [History Last Taken 11/13/21] paroxetine HCl 20 mg tablet 30 mg PO DAILY DEPRESSION 11/15/21 [History Last Taken 11/13/21] trazodone 50 mg tablet 50 mg PO QHS SLEEP 11/15/21 [History Last Taken 11/13/21] Allergy/AdvReac Type Severity Reaction Status Date / Time amoxicillin [Amoxicillin] Allergy Other Verified 11/25/22 10:47 celecoxib [From Celebrex] Allergy Low red Verified 11/25/22 10:47 blood cells Penicillins Allergy Other Verified 11/25/22 10:47 aspirin AdvReac Other Verified 11/25/22 10:47 codeine AdvReac Other Verified 11/25/22 10:47 Social History Smoking Status: Never smoker ROS ROS ED Constitutional Constitutional ED: Denies chills or fever(s) Eyes Eyes: Denies change in vision or discharge from eye(s) ENT ENT ED: Reports sore throat; Denies discharge from eye(s) or rhinorrhea Cardiovascular Cardiovascular: Denies chest pain or palpitations Respiratory/Chest Respiratory/Chest: Reports cough; Denies dyspnea Gastrointestinal Gastrointestinal: Reports diarrhea; Denies abdominal pain, nausea or vomiting Musculoskeletal Musculoskeletal: Denies back pain or extremity pain Integumentary Denies Abrasions or rash Neurologic Neurologic: Reports weakness; Denies headache(s) Allergic/Immunologic Allergic/Immunologic ED: Denies lip swelling or urticaria EXAM Physical Exam Const Vital Signs: 11/25/22 10:46 Temperature 98.2 F Temperature Source Temporal Pulse Rate 77 Respiratory Rate 14 Blood Pressure 163/76 H Blood Pressure Mean 105 Pulse Ox 91 Oxygen Delivery Method Room Air Positive well nourished and well developed General Appearance ED: well developed HEENT Reports normocephalic, head/scalp atraumatic and dry mucous membranes HEENT Narrative: Slightly hoarse voice. Posterior pharynx unremarkable. Small bilateral cervical lymphadenopathy. Patient tolerating secretions well. Mouth ED: Yes dry mucous membranes Mouth: dry mucous membranes Eyes PERRL and EOMs intact bilaterally Neck supple Chest Wall inspection of chest normal and palpation of chest normal Resp normal respiratory effort and clear to auscultation bilaterally Cardio regular rate and regular rhythm GI normal to inspection, nondistended, normoactive bowel sounds Palpation: soft Extremity normal to inspection Neuro oriented x3 and no sensory deficits noted Sensorium / Orientation: alert Motor Exam: strength 5/5 throughout Psych mental status grossly normal Skin no rashes or lesions noted MDM MDM MDM Narrative Medical decision making narrative: EKG obtained to evaluate for cardiac arrhythmia/ischemia. Labwork obtained to evaluate for leukocytosis, anemia, and electrolyte derangement. Swab for COVID and influenza obtained. Rapid strep obtained. Because patient reports she has not been eating and drinking well recently she was given a 500 cc IV fluid bolus. Lab Data Attestation: I reviewed the patient's lab results. Labs: Laboratory Results - last 24 hr 11/25/22 11/25/22 12:10 12:10 WBC 9.1 RBC 3.21 L Hgb 9.8 L Hct 31.0 L MCV 96.6 MCH 30.5 MCHC 31.6 L RDW Std Deviation 64.5 H RDW Coeff of Joey 18.5 H Plt Count 200 MPV 11.1 Immature Gran % (Auto) 1.000 H Neut % (Auto) 86.0 H Lymph % (Auto) 5.3 L [place] % (Auto) 6.7 Eos % (Auto) 0.7 Baso % (Auto) 0.3 Absolute Neuts (auto) 7.8 H Absolute Lymphs (auto) 0.48 L Nucleated RBC % 0 Differential Comment SCANNED Sodium 136 Potassium 5.3 H Chloride 104 Carbon Dioxide 16.0 L Anion Gap 16 H BUN 87 H Creatinine 9.67 H* Estim Creat Clear Calc 3.01 Est GFR (MDRD) Af Amer 5 L Est GFR (MDRD) Non-Af 4 L BUN/Creatinine Ratio 9.0 L Glucose 95 Calcium 8.3 L Radiography Chest X-Ray - ED: 1 View, Read by ED Physician and Chronic Changes Diagnostic Testing: Clinical Impression(s) from Imaging Studies Chest X-Ray 11/25/22 12:50 IMPRESSION: Mild cardiomegaly and mild degree of CHF. Electronically Signed: Mendoza Beebe MD at 13:23 EDT , EKG Initial EKG: Attestation: I personally reviewed and interpreted this EKG as follows: Interpretation: Sinus Rhythm (Sinus at 77 with no acute ischemia.) Differential Diagnosis Differential Diagnosis: Pneumonia Why less likely: No infiltrate on x-ray and no elevation of white count. Differential Diagnosis: Strep pharyngitis Why less likely: Rapid strep test negative. Treatment and Re-Evaluation :: On repeat evaluation patient resting comfortably. Test results discussed with her and at bedside. CBC is largely unremarkable. Hemoglobin is slightly low at 9.8. I believe this is likely due to hemodilution because she has not had her dialysis. Chemistry studies significant for a BUN of 87 and a creatinine of 9.67. Potassium is mildly elevated at 5.3. EKG is sinus rhythm with no acute ischemia. No evidence of hyperkalemic changes. Patient did miss her dialysis today. We called the dialysis center and they can take her at 1130 tomorrow morning. Patient is okay with this plan. She will be discharged home with her . Addendum: Nursing staff states that patient got up to use the restroom prior to discharge. She became short of breath with exertion and dropped her O2 sats into the 80s. She is placed back in the bed. I will speak with hospitalist regarding admission as well as her rollout manager to arrange inpatient dialysis. Discharge Plan Triage Chief Complaint: General Illness ED Provider: Taylor Houston Dx/Rx/DC Orders Clinical Impression: Viral syndrome, Fluid overload, Hypoxia Instructions: ED Viral Syndrome (Adult) Prescriptions: No Action Triphrocaps 1 MG capsule 1 mg PO DAILY Label Comments: vitamin supplement simvastatin 20 MG tablet 20 mg PO QHS Label Comments: cholesterol omeprazole 20 MG capsule 20 mg PO DAILY Label Comments: gastric reflux azelastine 1 SPRAY aerosol,spray 1 spray NASAL BID Label Comments: allergies albuterol sulfate [Ventolin HFA] 1 INHALER inhaler 2 puff inhalation Q4H PRN PRN (Reason: Wheezing) Qty: 1 0RF Rx Instructions: with spacer ipratropium bromide 1 SPRAY spray,non-aerosol 2 spray NASAL DAILY calcium acetate(phosphat bind) 667 MG capsule 667 mg PO TID Prolia 60 MG/ML syringe 60 mg SQ X1 Rx Instructions: every 6 months clonidine HCl 0.1 MG tablet 0.1 mg PO QHS Label Comments: high blood pressure Rx Instructions: dont take am dose until checking with nephrology lorazepam 1 MG tablet 1 mg PO QHS Veltassa 8.4 GM powder in packet 8.4 g PO DAILY loperamide 2 MG capsule 2 mg PO Q4H PRN PRN (Reason: Diarrhea) Qty: 20 0RF hydrocodone-acetaminophen 5-325 mg tablet 1 tab PO BID Label Comments: TAKE ONE TABLET BY MOUTH TWO TIMES A DAY FOR 28 DAYS hydralazine 25 mg tablet 25 mg PO TID Label Comments: TAKE 1 TABLET BY MOUTH EVERY 8 HOURS paroxetine HCl 20 mg tablet 30 mg PO DAILY Label Comments: TAKE 1 TABLET BY MOUTH EVERY MORNING INCREASE TO ONE AND ONE HALF TABLET EVERY EVENING trazodone 50 mg tablet 50 mg PO QHS Label Comments: TAKE 1 TABLET BY MOUTH EVERY DAY AT NIGHT mag [id number] rt xt 1 EACH tablet 1 each PO DAILY Primary Care Provider: Angel Casey Referrals: Angel Casey DO [Primary Care Provider] - Activity Restrictions/Additional Instructions: Please follow-up for your dialysis tomorrow morning at 1130. Disposition Disposition: [facility]
--- NOTE | 2022-11-25 14:22 | NURSING ---
HOSPITALIST TERESO RIDER
--- NOTE | 2022-11-25 14:58 | HP.PCM.HOS_ITS ---
HPI - General General Date of Service: 11/25/22 Chief Complaint: malaise HPI Narrative SASHA HWANG, is a 81 F who presents with not feeling well since this past Fr iday. Friday, patient was having just diarrhea and has felt wiped out. Since then, patient has had just upper respiratory congestion and hoarseness. Just feeling unwell. Presented to the emergency room. Patient is end-stage renal disease and is on dialysis every Friday. Due to not feeling well, patient missed dialysis on Friday as well as today. They are planning on sending the patient home but when they got her up and ambulated her, her oxygen dropped into the 80% range. The hospital service was then contacted for admission. Patient did note that she did feel short of breath with exertion which is not a normal density for her. Patient claims just feeling very weak overall. [facility] Medical History (Updated 11/25/22 @ 15:[address] Mamadou Ozuna, ) AV fistula ESRD needing dialysis Hypertension Osteoarthritis Home Medications omeprazole 20 mg capsule,delayed release 20 mg PO DAILY REFLUX 06/16/14 [History Last Taken 11/25/22] simvastatin 20 mg tablet 20 mg PO QHS CHOLESTEROL 06/16/14 [History Last Taken 11/24/22] azelastine 137 mcg (0.1 %) nasal spray aerosol 1 spray BID NASAL SPRAY 07/30/15 [History Last Taken 11/24/22] calcium acetate(phosphat bind) 667 mg capsule 667 mg PO TID VITAMIN 10/04/18 [History Last Taken 1 Week Ago ~11/18/22] clonidine HCl 0.1 mg tablet 0.1 mg PO BID bLOOD pRESSURE 10/04/18 [History Last Taken 11/25/22] ipratropium bromide 42 mcg (0.06 %) nasal spray 2 spray DAILY NASAL SPRAY 10/04/18 [History Last Taken 11/24/22] loperamide 2 mg capsule 2 mg PO Q4H PRN PRN Diarrhea ##20 10/07/18 [Rx Last Taken 11/22/22] hydralazine 25 mg tablet 25 mg PO TID ANXIETY 11/15/21 [History Last Taken 11/25/22] hydrocodone-acetaminophen 5-325mg 5mg-325mg 1 tab PO BID PAIN 11/15/21 [History Last Taken 11/24/22] magnesium oxide 500 mg-vit D3 3,000 unit-turmeric root 150 mg tablet 1 each PO DAILY SUPPLEMENT 11/15/21 [History Last Taken 11/13/21] paroxetine HCl 20 mg tablet 20 mg PO DAILY DEPRESSION 11/15/21 [History Last Taken 11/24/22] acetaminophen 500 mg tablet 1,000 mg PO TID PRN LEG PAIN 11/25/22 [History Last Taken 11/24/22] lorazepam 0.5 mg tablet 0.5 mg PO DAILY ANXIETY 11/25/22 [History Last Taken 11/25/22] vitamin B complex and vitamin C no.20-folic acid 1 mg capsule ([place] Caps) 1 cap PO DAILY SUPPLEMENT 11/25/22 [History Last Taken 11/25/22] Allergy/AdvReac Type Severity Reaction Status Date / Time amoxicillin [Amoxicillin] Allergy Other Verified 11/25/22 10:47 celecoxib [From Celebrex] Allergy Low red Verified 11/25/22 10:47 blood cells Penicillins Allergy Other Verified 11/25/22 10:47 aspirin AdvReac Other Verified 11/25/22 10:47 codeine AdvReac Other Verified 11/25/22 10:47 Social History (Updated 11/25/22 @ 15:[address] Mamadou Ozuna, DO) Smoking Status: Never smoker alcohol intake: never substance use type: does not use ROS ROS Narrative All review of systems were negative except as mentioned above in the history of present illness and the other review of systems. Vital Signs Vital Signs Vital Signs: 11/25/22 10:46 Temperature 36.8 C Temperature Source Temporal Pulse Rate 77 Respiratory Rate 14 Blood Pressure 163/76 H Blood Pressure Mean 105 Pulse Ox 91 Oxygen Delivery Method Room Air Weight Weight: 41.73 kg Body Mass Index (BMI) 19.2 Physical Exam Narrative - Physical Exam General: Alert, Oriented x3, Cooperative HEENT: Atraumatic, PERRLA, EOMI, Normocephalic Oral: Moist Mucosa, No Gingival or Mucosal Lesions/ Ulcerations Neck: Supple, No JVD, Negative Carotid Bruits Lungs: Clear to auscultation, Normal air movement Cardiovascular: Regular rate, Normal S1, Normal S2, No murmurs Abdomen: Bowel Sounds Present, Soft, Non Tender, Non-Distended, No Hepato- splenomegaly Extremities: No clubbing, No cyanosis, No edema, Capillary Refill Less than 3 Seconds fistula in left upper extremity and will palpable and auditory thrill. Skin: No rashes, No breakdown Musculoskeletal: No Tenderness to Palpation of Joints or Extremities Neurological: Neuro grossly intact Psych/Mental Status: Normal Affect, Appropriate Results Lab / Micro Data Result Diagrams: 11/25/22 12:10 11/25/22 12:10 Labs: Laboratory Results - last 24 hr 11/25/22 12:10: WBC 9.1, RBC 3.21 L, Hgb 9.8 L, Hct 31.0 L, MCV 96.6, MCH 30.5, MCHC 31.6 L, RDW Std Deviation 64.5 H, RDW Coeff of Joey 18.5 H, Plt Count 200, MPV 11.1, Immature Gran % (Auto) 1.000 H, Neut % (Auto) 86.0 H, Lymph % (Auto) 5.3 L, [place] % (Auto) 6.7, Eos % (Auto) 0.7, Baso % (Auto) 0.3, Absolute Neuts (auto) 7.8 H, Absolute Lymphs (auto) 0.48 L, Nucleated RBC % 0, Differential Comment SCANNED 11/25/22 12:10: Sodium 136, Potassium 5.3 H, Chloride 104, Carbon Dioxide 16.0 L , Anion Gap 16 H, BUN 87 H, Creatinine 9.67 H*, Estim Creat Clear Calc 3.01, Est GFR (MDRD) Af Amer 5 L, Est GFR (MDRD) Non-Af 4 L, BUN/Creatinine Ratio 9.0 L, Glucose 95, Calcium 8.3 L Micro: Microbiology 11/25/22 12:15 Nasal Secretion SARS-CoV-2 & FLU Antigen (Rapid) - Final 11/25/22 12:15 Interface Orders Group A Streptococcus Rapid Screen - Preliminary Radiology Impression Chest X-Ray 11/25/22 12:50 IMPRESSION: Mild cardiomegaly and mild degree of CHF. Electronically Signed: Mendoza Beebe MD at 13:23 EDT , Assessment & Plan Assessment/Plan (1) Hypoxia: PLAN: Likely due to volume overload from missing dialysis on this past Friday as well as today. After dialysis, check an ambulatory pulse ox to see if patient would require oxygen. COVID-19 and influenza negative Group A strep was also negative (2) ESRD needing dialysis: PLAN: Missed dialysis the as well as today. Nephrology has been contacted and the plan is for patient to have dialysis on the Continue with phosphate binders (3) Debility: PLAN: Likely due to what ever illness patient had contracted on top of her chronic medical conditions PT OT evaluate and treat PLAN: Plan Chronic conditions * Hypertension: Continue with hydralazine, clonidine * Osteoarthritis: Continue with [place] * Depression: Continue with paroxetine. Did review OARRS and patient does take lorazepam and will continue with that. VTE prophylaxis: Not indicated given current observation status. CODE STATUS: Addressed with the patient. Patient wished to be full code. Charges/Coding Visit Charges Inpatient E&M: 76272 Init Hosp L2
--- NOTE | 2022-11-25 15:04 | NURSING ---
MED SURG KETTY VIRAL SYNDROME, HYPOXIA WITH EXERTION, MISSED DIALYSIS
[2022-11-25] MEDS: hydrALAZINE 25 MG Tablet PO (22:44)
[2022-11-25] MEDS: cloNIDine HCl 0.1 MG Tablet PO (22:44)
[2022-11-25] MEDS: Atorvastatin Calcium 10 MG Tablet PO (22:44)
[2022-11-25] MEDS: HYDROcodone Bitartrate/Apap 5/325 Tablet PO (22:52)
[2022-11-25] MEDS: Paroxetine 20 MG Tablet PO (22:53)
[2022-11-26] VITALS (10 sets, daily range): BP systolic 146–185; BP diastolic 68–86; PULSE 68–82; RESP 16–18; TEMP 36.4–36.7; O2SAT 92–97
[2022-11-26] MEDS: guaiFENesin 600 MG Tablet PO ×2 (04:33→13:44)
[2022-11-26] MEDS: hydrALAZINE 25 MG Tablet PO ×2 (06:37→13:43)
[2022-11-26] MEDS: BENZOCAINE/MENTHOL 1 LOZENGE MUCOUS MEM (06:38)
[2022-11-26 06:54] LABS: Anion Gap 15 (5-15); BUN 103 mg/dL (7-18); BUN/Creat Ratio 10.4 RATIO (10-20); Chloride 105 mmol/L (98-107); Creatinine, Serum 9.93 mg/dL (0.55-1.02); EST Glomerular Filtration Rate 4 mL/min (>60); Est Glom Filt Rate - Afr Amer 5 mL/min (>60); Glucose 80 mg/dL (74-106); Potassium 5.1 mmol/L (3.5-5.1); Sodium Level 136 mmol/L (136-145)
--- NOTE | 2022-11-26 08:05 | PN.HOSP_ITS ---
Reason for Visit Reason for Visit: Diagnoses End stage renal disease (11/25/22) Hypoxemia (11/25/22) Other malaise (11/25/22) Dependence on renal dialysis (11/25/22) Subjective Subjective Feels better. Objective Data Objective Data Vital Signs: Vital Signs Temp Pulse Resp BP Pulse Ox O2 Del Method 36.4 C L 71 18 173/84 H 94 Room Air 11/26/22 06:36 11/26/22 06:37 11/26/22 06:36 11/26/22 06:37 11/26/22 06:36 11/26/22 06:36 Oxygen Delivery Method Room Air Weight: 47 kg Body Mass Index (BMI) 21.7 Intake & Output: Intake and Output for Last 24 Hours 11/24/22 11/25/22 11/26/22 23:59 23:59 23:59 Intake Total 500 / 800 900 / 900 Balance 500 / 800 900 / 900 Lab / Micro Data Result Diagrams: 11/25/22 12:10 11/26/22 04:54 Labs: Laboratory Results - last 24 hr 11/25/22 12:10: WBC 9.1, RBC 3.21 L, Hgb 9.8 L, Hct 31.0 L, MCV 96.6, MCH 30.5, MCHC 31.6 L, RDW Std Deviation 64.5 H, RDW Coeff of [place] 18.5 H, Plt Count 200, MPV 11.1, Immature Gran % (Auto) 1.000 H, Neut % (Auto) 86.0 H, Lymph % (Auto) 5.3 L, [place] % (Auto) 6.7, Eos % (Auto) 0.7, Baso % (Auto) 0.3, Absolute Neuts (auto) 7.8 H, Absolute Lymphs (auto) 0.48 L, Nucleated RBC % 0, Differential Comment SCANNED 11/25/22 12:10: Sodium 136, Potassium 5.3 H, Chloride 104, Carbon Dioxide 16.0 L , Anion Gap 16 H, BUN 87 H, Creatinine 9.67 H*, Estim Creat Clear Calc 3.01, Est GFR (MDRD) Af Amer 5 L, Est GFR (MDRD) Non-Af 4 L, BUN/Creatinine Ratio 9.0 L, Glucose 95, Calcium 8.3 L 11/26/22 04:54: Sodium 136, Potassium 5.1, Chloride 105, Carbon Dioxide 16.0 L, Anion Gap 15, BUN 103 H*, Creatinine 9.93 H*, Estim Creat Clear Calc 3.30, Est GFR (MDRD) Af Amer 5 L, Est GFR (MDRD) Non-Af 4 L, BUN/Creatinine Ratio 10.4, Glucose 80, Calcium 8.0 L Micro: Microbiology 11/25/22 12:15 Nasal Secretion SARS-CoV-2 & FLU Antigen (Rapid) - Final 11/25/22 12:15 Interface Orders Group A Streptococcus Rapid Screen - Preliminary Radiography Diagnostic Testing: Radiology Impression Chest X-Ray 11/25/22 12:50 IMPRESSION: Mild cardiomegaly and mild degree of CHF. Electronically Signed: Mendoza Beebe MD at 13:23 EDT , Physical Exam Const alert and no apparent distress Constitutional Narrative: seen on HD. Resp normal respiratory effort, no retractions, no use of accessory muscles and clear to auscultation bilaterally Cardio regular rate, regular rhythm, S1 normal heart sound and S2 normal heart sound GI normal to inspection, nondistended, normoactive bowel sounds, soft to palpation, non-tender and non-distended Extremity normal to inspection, full ROM and no clubbing, cyanosis or edema Assessment & Plan Assessment/Plan (1) Hypoxia: PLAN: Likely due to volume overload from missing dialysis on this past Friday as well as today. After dialysis, check an ambulatory pulse ox to see if patient would require oxygen. COVID-19 and influenza negative Group A strep was also negative Home oxygen eval (2) ESRD needing dialysis: PLAN: Missed dialysis the as well as 11/25. Had HD 11/26 Nephrology has been contacted and the plan is for patient to have dialysis on the Continue with phosphate binders (3) Debility: PLAN: Likely due to what ever illness patient had contracted on top of her chronic medical conditions PT OT evaluate and treat PLAN: Plan Chronic conditions * Hypertension: Continue with hydralazine, clonidine * Osteoarthritis: Continue with [place] * Depression: Continue with paroxetine. Did review OARRS and patient does take lorazepam and will continue with that. VTE prophylaxis: Not indicated given current observation status. CODE STATUS: Addressed with the patient. Patient wished to be full code. Disposition: TBD. Check home oxygen eval and therapy evals. Charges/Coding Visit Charges Inpatient E&M: 85513 Subs Hosp L2
--- NOTE | 2022-11-26 09:42 | PCM.CONS.R ---
Assessment & Plan Assessment/Plan (1) ESRD needing dialysis: PLAN: dialysis today, last treatment over a week ago. Seen on dialysis (2) Viral syndrome: (3) Hypoxia: PLAN: stable off oxygen, fluid removal on dialysis (4) Hypertension: PLAN: resume home meds (5) Anemia: PLAN: TOMMY HPI Consult Data Date of Consult: 11/26/22 HPI Narrative Reason for Consultation: ESRD HD Fri, Friday HPI Narrative: SASHA HWANG, is a 81 F who presents with not feeling well since last Friday.? She was instructed to go to ER for evaluation but did not seek medical attention until yesterday. She has ESRD on HD qM and Friday with last dialysis on Friday, over a week ago. She complains of a sore throat with cough, diarrhea, weakness, and poor intake. Potassium was stable. She was discharged to home in the ED but was admitted for hypoxia with exertion. Currently receiving dialysis. COVID negative on admit. [facility] Medical History (Updated 11/26/22 @ 09:[address] Chanel Barriga, ) AV fistula ESRD needing dialysis Hypertension Osteoarthritis Home Medications omeprazole 20 mg capsule,delayed release 20 mg PO DAILY REFLUX 06/16/14 [History Last Taken 11/25/22] simvastatin 20 mg tablet 20 mg PO QHS CHOLESTEROL 06/16/14 [History Last Taken 11/24/22] azelastine 137 mcg (0.1 %) nasal spray aerosol 1 spray BID NASAL SPRAY 07/30/15 [History Last Taken 11/24/22] calcium acetate(phosphat bind) 667 mg capsule 667 mg PO TID VITAMIN 10/04/18 [History Last Taken 1 Week Ago ~11/18/22] clonidine HCl 0.1 mg tablet 0.1 mg PO BID bLOOD pRESSURE 10/04/18 [History Last Taken 11/25/22] ipratropium bromide 42 mcg (0.06 %) nasal spray 2 spray DAILY NASAL SPRAY 10/04/18 [History Last Taken 11/24/22] loperamide 2 mg capsule 2 mg PO Q4H PRN PRN Diarrhea ##20 10/07/18 [Rx Last Taken 11/22/22] hydralazine 25 mg tablet 25 mg PO TID ANXIETY 11/15/21 [History Last Taken 11/25/22] hydrocodone-acetaminophen 5-325mg 5mg-325mg 1 tab PO BID PAIN 11/15/21 [History Last Taken 11/24/22] magnesium oxide 500 mg-vit D3 3,000 unit-turmeric root 150 mg tablet 1 each PO DAILY SUPPLEMENT 11/15/21 [History Last Taken 11/13/21] paroxetine HCl 20 mg tablet 20 mg PO DAILY DEPRESSION 11/15/21 [History Last Taken 11/24/22] acetaminophen 500 mg tablet 1,000 mg PO TID PRN LEG PAIN 11/25/22 [History Last Taken 11/24/22] lorazepam 0.5 mg tablet 0.5 mg PO DAILY ANXIETY 11/25/22 [History Last Taken 11/25/22] vitamin B complex and vitamin C no.20-folic acid 1 mg capsule ([place] Caps) 1 cap PO DAILY SUPPLEMENT 11/25/22 [History Last Taken 11/25/22] Allergy/AdvReac Type Severity Reaction Status Date / Time amoxicillin [Amoxicillin] Allergy Other Verified 11/25/22 10:47 celecoxib [From Celebrex] Allergy Low red Verified 11/25/22 10:47 blood cells Penicillins Allergy Other Verified 11/25/22 10:47 aspirin AdvReac Other Verified 11/25/22 10:47 codeine AdvReac Other Verified 11/25/22 10:47 Surgical History (Updated 11/25/22 @ 17:54 by Perla Maxwell) H/O: hysterectomy Total knee replacement status Social History (Updated 11/25/22 @ 15:[address] Mamadou Ozuna, DO) Smoking Status: Never smoker alcohol intake: never substance use type: does not use ROS Constitutional Constitutional: Reports weakness; Denies chills or fever(s) Cardiovascular Cardiovascular: Denies chest pain or leg edema Respiratory/Chest Respiratory/Chest: Reports dry cough, dyspnea on exertion and shortness of breath at rest Gastrointestinal Gastrointestinal: Reports anorexia and diarrhea; Denies abdominal pain Musculoskeletal Musculoskeletal: Reports other Details: weakness Hematologic/Lymphatic Hematologic/Lymphatic: Reports anemia Physical Exam Const alert and oriented x3 General Appearance: well developed Cardio regular rate GI non-tender and non-distended Auscultation: normoactive bowel sounds Extremity no clubbing, cyanosis or edema Neuro Sensorium / Orientation: awake and alert Psych cooperative Lab / Micro Data Result Diagrams: 11/25/22 12:10 11/26/22 04:54 Labs: Laboratory Results - last 24 hr 11/25/22 12:10: WBC 9.1, RBC 3.21 L, Hgb 9.8 L, Hct 31.0 L, MCV 96.6, MCH 30.5, MCHC 31.6 L, RDW Std Deviation 64.5 H, RDW Coeff of Joey 18.5 H, Plt Count 200, MPV 11.1, Immature Gran % (Auto) 1.000 H, Neut % (Auto) 86.0 H, Lymph % (Auto) 5.3 L, [place] % (Auto) 6.7, Eos % (Auto) 0.7, Baso % (Auto) 0.3, Absolute Neuts (auto) 7.8 H, Absolute Lymphs (auto) 0.48 L, Nucleated RBC % 0, Differential Comment SCANNED 11/25/22 12:10: Sodium 136, Potassium 5.3 H, Chloride 104, Carbon Dioxide 16.0 L, Anion Gap 16 H, BUN 87 H, Creatinine 9.67 H*, Estim Creat Clear Calc 3.01, Est GFR (MDRD) Af Amer 5 L, Est GFR (MDRD) Non-Af 4 L, BUN/Creatinine Ratio 9.0 L, Glucose 95, Calcium 8.3 L 11/26/22 04:54: Sodium 136, Potassium 5.1, Chloride 105, Carbon Dioxide 16.0 L, Anion Gap 15, BUN 103 H*, Creatinine 9.93 H*, Estim Creat Clear Calc 3.30, Est GFR (MDRD) Af Amer 5 L, Est GFR (MDRD) Non-Af 4 L, BUN/Creatinine Ratio 10.4, Glucose 80, Calcium 8.0 L Micro: Microbiology 11/25/22 12:15 Nasal Secretion SARS-CoV-2 & FLU Antigen (Rapid) - Final 11/25/22 12:15 Interface Orders Group A Streptococcus Rapid Screen - Preliminary Radiology Impression Chest X-Ray 11/25/22 12:50 IMPRESSION: Mild cardiomegaly and mild degree of CHF. Electronically Signed: Mendoza Beebe MD at 13:23 EDT ,
[2022-11-26] MEDS: Heparin 10,000 UNITS/10 ML Vial 4000 UNITS IV (10:00)
[2022-11-26] MEDS: Epoetin Alfa epbx 10,000 UNITS/ML 6000 UNIT IV (10:45)
--- NOTE | 2022-11-26 12:10 | CHAPLAIN ---
Type of Pastoral Visit _x__ Initial Visit ___ Follow-up Visit ___ On-call Visit ___ General Patient Visit ___ Spiritual Assessment ___ Family Conference ___ Bereavement ___ Rapid Response ___ Code Blue ___ Other (describe below) Pastoral Care Referral From _x__ Patient ___ Family ___ Nurse ___ Physician ___ School Janitor ___ Client Administrator ___ Other (describe below) Sacrament/Intervention _x__ Active listening ___ Anointing ___ Congregational ___ Bereavement ___ Communion ___ Marilynn exploration ___ ___ Life review _x__ Prayer ___ Reconciliation ___ Sacrament of Sick ___ Supportive presence ___ Wedding ___ Other (describe below) Pastoral Comments patient is receiving dialysis; spouse is at bedside; both welcome offer of support but no needs identified at this time; pt welcomes a prayer; both speak of great care at this hospital
[2022-11-26 12:57] LABS: Phosphorus 6.7 mg/dL (2.5-4.9)
--- NOTE | 2022-11-26 13:30 | DIALYSIS ---
Hemodialysis complete. 3.5 hour run, 2k bath. Net fluid removed = 2800 ml. Patient tolerated HD tx well. Patient's right foot cramping at end of HD tx. Cramping resolved after blood returned to patient. Left upper arm AVG: Site benign, thrill and bruit present. Needle site pressure held 20 min each. Hemostasis achieved. Report given to primary RN, Becky Wild
[2022-11-26] MEDS: Folic Acid/Vitamin B Comp W-C 1 Capsule 1 CAP PO (13:42)
[2022-11-26] MEDS: HYDROcodone Bitartrate/Apap 5/325 Tablet PO (13:42)
[2022-11-26] MEDS: LORazepam 0.5 MG Tablet PO (13:43)
[2022-11-26] MEDS: Calcium Acetate 667 MG Capsule PO ×2 (13:43→17:20)
[2022-11-26] MEDS: cloNIDine HCl 0.1 MG Tablet PO (13:44)
[2022-11-26] MEDS: Ipratropium Bromide 0.06% NASAL SPRAY 2 SPRAY NASAL (13:44)
[2022-11-26] MEDS: Pantoprazole Sodium 20 MG Tablet PO (13:44)
--- NOTE | 2022-11-26 15:43 | CASEMGMT ---
DAYTON DENNIS in to discuss discharge need with patient. Patient states she feels like she is at her baseline for activity, per therapy patient was SBA, contact guard to the chair. Patient voiced interest in outpatient therapy and will attend at [facility] in [place] as she has done in the past. DAYTON DENNIS to assist with script for outpatient therapy. Patient to walk with nursing for oxygen testing. Hospitalist updated. Patient had no further questions or concerns at this time.
--- NOTE | 2022-11-26 16:28 | PCM.DC ---
Discharge Instructions Diet Discharge Diet: 2000 mg Sodium Diet Activity Discharge Activity: Use Walker Dressing / Incision Call your doctor if you observe: Shortness of breath Follow Up Care Test Results: Test results from this visit will be discussed in further detail at your follow-up appointment, if applicable. Discharge Plan Admission Admit Date/Time: 11/25/22 14:53 Primary Reason for Your Visit: hypoxia Attending Provider: Mamadou Ozuna Primary Care Provider: Angel Casey Consulting Providers: Chanel Barriga Instructions Patient Instructions: ED Viral Syndrome (Adult) Additional Instructions / Restrictions: Please follow-up for your dialysis tomorrow morning at 1130. Outpatient physical therapy. Discharge Orders/Prescriptions Prescriptions: New Chloraseptic Sore Throat 6-10 mg Lozenge 1 jama mucous membrane Q2H PRN PRN (Reason: SORE THROAT) Qty: 0 0RF guaifenesin [Mucus Relief ER] 600 mg Tablet Extended Release 12hr 600 mg PO BID Qty: 10 0RF [place] Nasal 0.65 % Aerosol,[place] 2 spray NASAL TID PRN PRN (Reason: NASAL DRYNESS) Qty: 0 0RF Continued simvastatin 20 MG tablet 20 mg PO QHS Label Comments: cholesterol omeprazole 20 MG capsule 20 mg PO DAILY Label Comments: gastric reflux azelastine 1 SPRAY aerosol,spray 1 spray NASAL BID Label Comments: allergies ipratropium bromide 1 SPRAY spray,non-aerosol 2 spray NASAL DAILY calcium acetate(phosphat bind) 667 MG capsule 667 mg PO TID clonidine HCl 0.1 MG tablet 0.1 mg PO BID Label Comments: high blood pressure Rx Instructions: dont take am dose until checking with nephrology loperamide 2 MG capsule 2 mg PO Q4H PRN PRN (Reason: Diarrhea) Qty: 20 0RF hydrocodone-acetaminophen 5-325 mg tablet 1 tab PO BID Label Comments: TAKE ONE TABLET BY MOUTH TWO TIMES A DAY FOR 28 DAYS hydralazine 25 mg tablet 25 mg PO TID Label Comments: TAKE 1 TABLET BY MOUTH EVERY 8 HOURS paroxetine HCl 20 mg tablet 20 mg PO DAILY Label Comments: TAKE 1 TABLET BY MOUTH EVERY MORNING INCREASE TO ONE AND ONE HALF TABLET EVERY EVENING mag [id number] rt xt 1 EACH tablet 1 each PO DAILY acetaminophen 500 mg Tablet 1,000 mg PO TID PRN (Reason: LEG PAIN) lorazepam 0.5 mg tablet 0.5 mg PO DAILY Label Comments: TAKE 1 TABLET BY MOUTH EVERY DAY IN THE MORNING [place] Caps 1 mg capsule 1 cap PO DAILY Label Comments: TAKE 1 CAPSULE BY MOUTH EVERY DAY Referrals / Follow Up: Angel Casey DO [Primary Care Provider] - Within 2 Weeks Disposition Disposition (needs filled in before D/C Order can be placed): Home, Self Care
--- NOTE | 2022-11-26 16:31 | DS.PCM_ITS ---
Providers Date of Admission: 11/25/22 Primary Care Physician: Dr. Angel Casey, Consultations 11/25/22 18:58 Consult: Nephrology Routine Consulting Provider: Chanel Barriga Reason for Consult: dialysis EMERGENT Consult: No MD Notified: Yes Date Notified: 11/25/22 Time Notified: 14:57 Method of Notification: ED Physician Initiated Reason For Visit: HYPOXIA Diagnosis Discharge Diagnosis (1) Hypoxia: Status: Acute Code(s): R09.02 - Hypoxemia Plan: Likely due to volume overload from missing dialysis on this past Friday as well as today. After dialysis, check an ambulatory pulse ox to see if patient would require oxygen. COVID-19 and influenza negative Group A strep was also negative Home oxygen eval (2) ESRD needing dialysis: Status: Acute Code(s): N18.6 - End stage renal disease; Z99.2 - Dependence on renal dialysis Plan: Missed dialysis the as well as 11/25. Had HD 11/26 Nephrology has been contacted and the plan is for patient to have dialysis on the Continue with phosphate binders (3) Debility: Status: Acute Code(s): R53.81 - Other malaise Plan: Likely due to what ever illness patient had contracted on top of her chronic med ical conditions PT OT evaluate and treat Plan Chronic conditions * Hypertension: Continue with hydralazine, clonidine * Osteoarthritis: Continue with [place] * Depression: Continue with paroxetine. Did review OARRS and patient does take lorazepam and will continue with that. VTE prophylaxis: Not indicated given current observation status. CODE STATUS: Addressed with the patient. Patient wished to be full code. Disposition: TBD. Check home oxygen eval and therapy evals. Medications at Discharge Home Medications omeprazole 20 mg capsule,delayed release 20 mg PO DAILY REFLUX 06/16/14 simvastatin 20 mg tablet 20 mg PO QHS CHOLESTEROL 06/16/14 azelastine 137 mcg (0.1 %) nasal spray aerosol 1 spray BID NASAL SPRAY 07/30/15 calcium acetate(phosphat bind) 667 mg capsule 667 mg PO TID VITAMIN 10/04/18 clonidine HCl 0.1 mg tablet 0.1 mg PO BID bLOOD pRESSURE 10/04/18 ipratropium bromide 42 mcg (0.06 %) nasal spray 2 spray DAILY NASAL SPRAY 10/04/18 loperamide 2 mg capsule 2 mg PO Q4H PRN PRN Diarrhea ##20 10/07/18 hydralazine 25 mg tablet 25 mg PO TID ANXIETY 11/15/21 hydrocodone-acetaminophen 5-325mg 5mg-325mg 1 tab PO BID PAIN 11/15/21 magnesium oxide 500 mg-vit D3 3,000 unit-turmeric root 150 mg tablet 1 each PO DAILY SUPPLEMENT 11/15/21 paroxetine HCl 20 mg tablet 20 mg PO DAILY DEPRESSION 11/15/21 acetaminophen 500 mg tablet 1,000 mg PO TID PRN LEG PAIN 11/25/22 lorazepam 0.5 mg tablet 0.5 mg PO DAILY ANXIETY 11/25/22 vitamin B complex and vitamin C no.20-folic acid 1 mg capsule ([place] Caps) 1 cap PO DAILY SUPPLEMENT 11/25/22 benzocaine 6 mg-menthol 10 mg lozenges (Chloraseptic Sore Throat) 1 jama mucous membrane Q2H PRN PRN SORE THROAT #0 ea 11/26/22 guaifenesin 600 mg tablet, extended release 12 hr (Mucus Relief ER) 600 mg PO BID #10 tabs 11/26/22 sodium chloride 0.65 % nasal spray aerosol (Deep Sea Nasal) 2 spray NASAL TID PRN PRN NASAL DRYNESS #0 mL 11/26/22 Hospital Course Operations None Procedures Dialysis Summary of Care Provided Hospital Course: Patient presents with feeling unwell. Patient had been feeling unwell from the week before with began gastrointestinal symptoms with migrated to upper respiratory symptoms with sore throat, sinus congestion. While feeling sick, patient missed dialysis session as well as on the . She presented here on the and plan was to discharge patient from the ER to have dialysis on the but when he got up and walked her she had a pulse ox down into the 80% range. The hospital service was contacted for admission. Nephrology was also consulted and patient underwent dialysis on the which she tolerated. Patient was reevaluated for home oxygen and she was 94% at rest and 97% with ambulation. Patient is also feeling weak overall and was standby assist with a walker but that was her baseline. Patient felt comfortable going home and would do outpatient therapy. Patient does still have some upper respiratory symptoms. Explained that this is likely viral though the testing was negative here and that should, with time, resolved. Patient may take nasal saline as well as Mucinex to help with her upper respiratory symptoms. Medical Records Data Medical Nutrition Assessment Dietitian: Malnutrition Criteria Met Start: 11/26/22 1 3:24 Freq: Status: Active Protocol: Document 11/26/22 13:24 AG (Rec: 11/26/22 13:24 AG [id number]) Nutrition Malnutrition Evidence of Malnutrition Exists Yes Malnutrition (moderate): Chronic Evidenced By Suboptimal Energy Intake ( Moderate),Physical Changes ( Moderate) Clinical Problem Chronic Disease or Condition Related Malnutrition Etiology chronic, moderate malnutrition related to inadequate energy intake w/ increased energy needs d/t ESRD on dialysis Signs/Symptoms as evidenced by estimated PO intake meeting <75% of estimated energy needs > 3 months; moderate muscle wasting/fat loss evident per physical exam in orbital, clavicle, acromion, and temporal areas. Status Active Problem Recommendation Dietitian Recommendations/Changes continue renal diet as tolerated; will monitor PO intake, labs and adjust diet as indicated. Will adjust ONS to 240mL [place] Carb Steady TID w/ meals Weight / BMI Weight Weight: 47 kg Body Mass Index (BMI) 21.7 ABG / Lab / Microbiology Data Result Diagrams: 11/25/22 12:10 11/26/22 04:54 Laboratory: Laboratory Results - last 24 hr 11/26/22 04:54: Sodium 136, Potassium 5.1, Chloride 105, Carbon Dioxide 16.0 L, Anion Gap 15, BUN 103 H*, Creatinine 9.93 H*, Estim Creat Clear Calc 3.30, Est GFR (MDRD) Af Amer 5 L, Est GFR (MDRD) Non-Af 4 L, BUN/Creatinine Ratio 10.4, Glucose 80, Calcium 8.0 L 11/26/22 04:54: Phosphorus 6.7 H Microbiology: Microbiology 11/25/22 12:15 Interface Orders Group A Streptococcus Rapid Screen - Preliminary 11/25/22 12:15 Nasal Secretion SARS-CoV-2 & FLU Antigen (Rapid) - Final D/C Instructions Discharge Diet: 2000 mg Sodium Diet Call your doctor if you observe: Shortness of breath Meaningful Use Info Meaningful Use Diagnoses (Choose all that apply): None applicable Discharge Plan Admission Admit Date/Time: 11/25/22 14:53 Primary Reason for Your Visit: hypoxia Attending Provider: Mamadou Ozuna Primary Care Provider: Angel Casey Consulting Providers: Chanel Barriga Instructions Patient Instructions: ED Viral Syndrome (Adult) Additional Instructions / Restrictions: Please follow-up for your dialysis tomorrow morning at 1130. Outpatient physical therapy. Discharge Orders/Prescriptions Prescriptions: New Chloraseptic Sore Throat 6-10 mg Lozenge 1 jama mucous membrane Q2H PRN PRN (Reason: SORE THROAT) Qty: 0 0RF guaifenesin [Mucus Relief ER] 600 mg Tablet Extended Release 12hr 600 mg PO BID Qty: 10 0RF [place] Nasal 0.65 % Aerosol,[place] 2 spray NASAL TID PRN PRN (Reason: NASAL DRYNESS) Qty: 0 0RF Continued simvastatin 20 MG tablet 20 mg PO QHS Label Comments: cholesterol omeprazole 20 MG capsule 20 mg PO DAILY Label Comments: gastric reflux azelastine 1 SPRAY aerosol,spray 1 spray NASAL BID Label Comments: allergies ipratropium bromide 1 SPRAY spray,non-aerosol 2 spray NASAL DAILY calcium acetate(phosphat bind) 667 MG capsule 667 mg PO TID clonidine HCl 0.1 MG tablet 0.1 mg PO BID Label Comments: high blood pressure Rx Instructions: dont take am dose until checking with nephrology loperamide 2 MG capsule 2 mg PO Q4H PRN PRN (Reason: Diarrhea) Qty: 20 0RF hydrocodone-acetaminophen 5-325 mg tablet 1 tab PO BID Label Comments: TAKE ONE TABLET BY MOUTH TWO TIMES A DAY FOR 28 DAYS hydralazine 25 mg tablet 25 mg PO TID Label Comments: TAKE 1 TABLET BY MOUTH EVERY 8 HOURS paroxetine HCl 20 mg tablet 20 mg PO DAILY Label Comments: TAKE 1 TABLET BY MOUTH EVERY MORNING INCREASE TO ONE AND ONE HALF TABLET EVERY EVENING mag [id number] rt xt 1 EACH tablet 1 each PO DAILY acetaminophen 500 mg Tablet 1,000 mg PO TID PRN (Reason: LEG PAIN) lorazepam 0.5 mg tablet 0.5 mg PO DAILY Label Comments: TAKE 1 TABLET BY MOUTH EVERY DAY IN THE MORNING [place] Caps 1 mg capsule 1 cap PO DAILY Label Comments: TAKE 1 CAPSULE BY MOUTH EVERY DAY Referrals / Follow Up: Angel Casey DO [Primary Care Provider] - Within 2 Weeks Disposition Disposition (needs filled in before D/C Order can be placed): Home, Self Care Charges/Coding Visit Charges Inpatient E&M: 00110 Disch Hosp
--- NOTE | 2022-11-26 16:31 | CASEMGMT ---
DAYTON DENNIS in to complete DONNELLY form with patient. DAYTON DENNIS explained DONNELLY form to patient. Patient voiced understanding and signed DONNELLY form. Signed DONNELLY form filed in chart. Patient provided with copy signed DONNELLY form. DAYTON DENNIS received script for outpatient therapy and provided to patient. Patient had no further questions or concerns at this time.
[2022-11-26] MEDS: Sodium Chloride 0.65% 1 SPRAY SPRAY.BTL 2 SPRAY NASAL (17:20)
== END 2022-11-26 16:31 | disposition home or self-care (01) ==
LOC: ED 14:41 → PCU 17:22
PROVIDERS: Internal Medicine Nephrology; Emergency Provider Emergency Medicine; PCP Family Medicine
DX: R09.02 Hypoxemia (principal); I13.2 Hypertensive heart and chronic kidney disease with heart failure and with stage 5 chronic kidney disease, or end stage renal disease; Z99.2 Dependence on renal dialysis; N18.6 End stage renal disease; E87.70 Fluid overload, unspecified; Z79.899 Other long term (current) drug therapy; Z79.891 Long term (current) use of opiate analgesic; Z20.822 Contact with and (suspected) exposure to COVID-19; R49.0 Dysphonia; M19.90 Unspecified osteoarthritis, unspecified site; F32.A Depression, unspecified; B34.9 Viral infection, unspecified
CPT/HCPCS: 36415; 71045; 80048; 84100; 85025; 87428; 87880; 90937; 93005; 96361; 96374; 96375; 97162; 97166; 97802; 99221; 99285; J7030; J7040; G0257; G0378; Q5106

== ENCOUNTER 2023-03-17 11:26 | Emergency (ER) | payer MEDICARE, SELFPAY ==
[2023-03-17 11:27] VITALS: BP 191/84; PULSE 87; RESP 14; TEMP 36.6; O2SAT 93
[2023-03-17 11:40] VITALS: BMI 21.5
--- NOTE | 2023-03-17 11:48 | ED.VIS.CHEST ---
HPI History of Present Illness Chief Complaint: Chest Other Detail of Chief Complaint: Patient with left lower rib cage and flank pain. Informant: patient and spouse/S.O. Onset/Context/Timing Onset: Days Activity at onset: gradual Timing: Continuous Location: Left Chest and - (Left lower rib cage and posterior ribs on the left.) Current Severity: Mild Maximum Severity: Mild Worsened By: Movement of Torso Relieved By: Remaining Still Narrative Narrative: 82-year-old female history of end-stage renal disease undergoes dialysis twice a week on Mondays and Fridays. Was last dialyzed last Friday. Also has a history of hypertension, osteoarthritis and anemia. States on Friday she had gradual onset of left lower posterior rib cage pain its also migrated to the left lower anterior ribs. Denies any fall injury or trauma. No history of rib fractures. She does not feel short of breath. Pain is not pleuritic. No hemoptysis. She is never had a DVT or PE. No recent hospitalization. No leg pain or swelling. She denies any fever or cough. This is not exertional. She denies any abdominal pain. It is along her left lower rib cage. Prior Similar Symptoms: No Recent Illness/Hospitalization: No CVD Risk Factors: Positive for Hypertension PE Risk Factors: Negative for Recent Travel/Surgery, Recent Immobilization, Prior DVT or PE, Cancer or OCP + Smoking + >/=35 TAD Risk Factors: Positive for Marfan's Syndrome [facility] Medical History Anemia AV fistula Debility ESRD needing dialysis Hypertension Hypertension Osteoarthritis Home Medications omeprazole 20 mg capsule,delayed release 20 mg PO DAILY REFLUX 06/16/14 [History Last Taken 11/25/22] simvastatin 20 mg tablet 20 mg PO QHS CHOLESTEROL 06/16/14 [History Last Taken 11/24/22] azelastine 137 mcg (0.1 %) nasal spray aerosol 1 spray BID NASAL SPRAY 07/30/15 [History Last Taken 11/24/22] calcium acetate(phosphat bind) 667 mg capsule 667 mg PO TID VITAMIN 10/04/18 [History Last Taken 1 Week Ago ~11/18/22] clonidine HCl 0.1 mg tablet 0.1 mg PO BID bLOOD pRESSURE 10/04/18 [History Last Taken 11/25/22] ipratropium bromide 42 mcg (0.06 %) nasal spray 2 spray DAILY NASAL SPRAY 10/04/18 [History Last Taken 11/24/22] loperamide 2 mg capsule 2 mg PO Q4H PRN PRN Diarrhea ##20 10/07/18 [Rx Last Taken 11/22/22] hydralazine 25 mg tablet 25 mg PO TID ANXIETY 11/15/21 [History Last Taken 11/25/22] hydrocodone-acetaminophen 5-325mg 5mg-325mg 1 tab PO BID PAIN 11/15/21 [History Last Taken 11/24/22] magnesium oxide 500 mg-vit D3 3,000 unit-turmeric root 150 mg tablet 1 each PO DAILY SUPPLEMENT 11/15/21 [History Last Taken 11/13/21] paroxetine HCl 20 mg tablet 20 mg PO DAILY DEPRESSION 11/15/21 [History Last Taken 11/24/22] acetaminophen 500 mg tablet 1,000 mg PO TID PRN LEG PAIN 11/25/22 [History Last Taken 11/24/22] lorazepam 0.5 mg tablet 0.5 mg PO DAILY ANXIETY 11/25/22 [History Last Taken 11/25/22] vitamin B complex and vitamin C no.20-folic acid 1 mg capsule ([place] Caps) 1 cap PO DAILY SUPPLEMENT 11/25/22 [History Last Taken 11/25/22] benzocaine 6 mg-menthol 10 mg lozenges (Chloraseptic Sore Throat) 1 jama mucous membrane Q2H PRN PRN SORE THROAT #0 ea 11/26/22 [Rx Last Taken Unknown] guaifenesin 600 mg tablet, extended release 12 hr (Mucus Relief ER) 600 mg PO BID #10 tabs 11/26/22 [Rx Last Taken Unknown] sodium chloride 0.65 % nasal spray aerosol ([place] Nasal) 2 spray NASAL TID PRN PRN NASAL DRYNESS #0 mL 11/26/22 [Rx Last Taken Unknown] famciclovir 500 mg tablet 500 mg PO Q8H 7 days #21 tabs 03/17/23 [Rx Last Taken Unknown] oxycodone-acetaminophen 5 mg-325 mg tablet (Percocet) 1 tab PO Q4H PRN pain 5 days #20 tabs 03/17/23 [Rx Last Taken Unknown] prednisone 20 mg tablet 40 mg (2 x 20 mg) PO DAILY 10 days #20 tabs 03/17/23 [Rx Last Taken Unknown] Allergy/AdvReac Type Severity Reaction Status Date / Time amoxicillin [Amoxicillin] Allergy Other Verified 03/17/23 11:27 celecoxib [From Celebrex] Allergy Low red Verified 03/17/23 11:27 blood cells Penicillins Allergy Other Verified 03/17/23 11:27 aspirin AdvReac Other Verified 03/17/23 11:27 codeine AdvReac Other Verified 03/17/23 11:27 Surgical History H/O: hysterectomy Total knee replacement status Social History Smoking Status: Never smoker alcohol intake: never substance use type: does not use ROS ROS ED ROS Narrative Left lower and lateral and posterior rib cage pain. No illness. No fall or trauma. Review of Systems ROS Unobtainable: Denies due to encephalopathy Constitutional Constitutional ED: Denies chills or fever(s) Eyes Eyes: Reports none ENT ENT ED: Denies ear pain Cardiovascular Cardiovascular: Reports as per HPI, chest pain and other Details: Left lower rib cage and chest wall pain. Respiratory/Chest Respiratory/Chest: Denies cough, dyspnea or dyspnea on exertion Gastrointestinal Gastrointestinal: Denies abdominal pain Genitourinary Genitourinary ED: Denies dysuria or hematuria Musculoskeletal Musculoskeletal: Denies arthralgias Integumentary Denies abscess Neurologic Neurologic: Denies headache(s) Psychiatric Psychiatric: Denies anxiety Endocrine Endocrinology: Denies cold intolerance Hematologic/Lymphatic Hematologic/Lymphatic: Denies easy bleeding or easy bruising Allergic/Immunologic Allergic/Immunologic ED: Denies mouth swelling EXAM Physical Exam Narrative Exam Narrative: 82-year-old female no acute distress. Vital signs stable afebrile. Pulse ox 93% on room air no hypoxia. Sitting upright in bed. present in room. H EENT exam unremarkable atraumatic. Lungs clear. Heart regular rhythm rate about 85. 4-6 systolic ejection murmur. Chest wall she has tenderness along her left lateral and lower rib cage both anteriorly and posteriorly there is no crepitance or subcu air. There is no bruising. There is no gross bony deformity. No signs of trauma. She does have a rash that is red and raised and consistent with shingles. It does not [place]. The rash goes along her left lower ribs into her left posterior ribs. Abdomen is soft and nontender. Normal bowel sounds no peritoneal signs. Moving all 4 extremities. Nontender no edema. She has a left upper arm dialysis fistula that has a good thrill in it. She is awake and alert. Const Vital Signs: 03/17/23 11:27 03/17/23 11:40 Temperature 98 F Temperature Source Temporal Pulse Rate 87 Respiratory Rate 14 Respiratory Effort Normal Non-Labored Blood Pressure 191/84 H Blood Pressure Mean 119 Pulse Ox 93 Oxygen Delivery Method Room Air Positive well nourished, well developed and obese; Negative for cachectic, contractures or unkempt General Appearance ED: well developed and NAD; Negative for unkempt, cachectic, contractures or pallor Nutritional Appearance: obese; Negative for cachectic HEENT Reports moist mucous membranes normocephalic and atraumatic; Negative for trauma or tenderness Eyes PERRL and EOMs intact bilaterally General Eye ED: Negative for pale conjunctiva or scleral icterus Neck no lymphadenopathy, supple and no JVD Chest Wall inspection of chest normal; Negative for palpation of chest normal Chest Narrative: Left chest wall rib tenderness. No crepitance. No bruising. No bony deformity. There is a rash along the left lower rib cage anteriorly and posteriorly consistent with most likely shingles. Chest: tenderness Resp normal respiratory effort and clear to auscultation bilaterally Effort and Inspection: Negative for respiratory distress Auscultation: Negative for rales, rhonchi or wheezes Cardio regular rate, regular rhythm, S1 normal heart sound and S2 normal heart sound; Negative for no murmurs Rate: other Other Details: 4/6 systolic ejection murmur present. GI normal to inspection, nondistended, normoactive bowel sounds, soft to palpation, non-tender, non-distended and no masses; Negative for hepatosplenomegaly Palpation: Negative for mass Back/Spine no CVA tenderness and no thoracic nor lumbar tenderness Back/Spine Narrative: Tenderness along the left lower and lateral rib cage. General Back: Negative for CVA tenderness Cervical Spine: Negative for cervical spine tenderness Extremity normal to inspection General Extremety ED: Negative for edema General Extremity: Negative for edema Neuro oriented x3 and CN's II-XII intact bilaterally Sensorium / Orientation: awake, alert, oriented to person, oriented to place and oriented to time; Negative for confused, lethargic or stuporous Motor Exam: strength 5/5 throughout Psych mental status grossly normal Appearance: Negative for unkempt Attitude: No agitated Mood & Affect: Negative for depressed, anxious or tearful Skin No no rashes or lesions noted and no wounds Skin Narrative: Rash left lower rib cage red and raised. Does not [place]. No bruising. No sloughing of skin. Rashes consistent with shingles. General Skin Exam: Negative for jaundice or pallor Rashes: rashes noted Trauma: Negative for abrasion, laceration or puncture MDM MDM MDM Narrative Medical decision making narrative: 82-year-old female with atraumatic left lower rib cage pain. This very well may be secondary to shingles due to that she does have a rash consistent with shingles along her left lower rib cage. She tells me she reportedly had the shingles vaccine. Denies any history of fall or trauma. A chest x-ray will also be obtained. Repeat exam unchanged at 12:30 PM. Patient doing well. Rash on the left lower lateral rib cage appears to be shingles. Unchanged. We went over her chest x-ray results. She will be treated as shingles. Percocet for pain. She is used that before in the past. She sees pain management. Prednisone daily for 10 days. And Famvir. History & Record Review Discussion w/independent historian: Patient and Significant other Additional record(s) reviewed:: Prior inpatient record, Prior outpatient record, Prior ED visit and Prior labs Radiography Chest X-Ray - ED: 2 View, Read by ED Physician, Read by Radiologist, Heart, Lungs, Mediastinum, Bony Structures, No Acute Disease and Chronic Changes Diagnostic Testing: Clinical Impression(s) from Imaging Studies Chest X-Ray 03/17/23 12:00 IMPRESSION: No radiographic evidence of acute cardiopulmonary disease. Slight irregularity is noted in the left eighth rib posterolaterally appearing stable compared to October 04, 2018 Electronically Signed: Francisco Caraballo, at 12:15 EDT Reading Location ID and State: [address] [place] [address] Tel , Service support , Chest x-ray, 2 views, AP and lateral, interpreted by myself shows no acute abnormality. Chronic changes. No obvious rib fracture. No pneumothorax. Borderline cardiomegaly. Also read by the radiologist and we agree. Discharge Plan Triage Chief Complaint: Chest Other ED Provider: Luciano Lundberg Dx/Rx/DC Orders Clinical Impression: Acute chest wall pain, Shingles, History of end stage renal disease Instructions: ED Shingles (Herpes Zoster) Prescriptions: New famciclovir 500 mg tablet 500 mg PO Q8H 7 Days Qty: 21 0RF prednisone 20 mg tablet 40 mg PO DAILY 10 Days Qty: 20 0RF oxycodone-acetaminophen [Percocet] 5-325 mg tablet 1 tab PO Q4H PRN (Reason: pain) 5 Days Qty: 20 0RF No Action simvastatin 20 MG tablet 20 mg PO QHS Patient Comments: cholesterol omeprazole 20 MG capsule 20 mg PO DAILY Patient Comments: gastric reflux azelastine 1 SPRAY aerosol,spray 1 spray NASAL BID Patient Comments: allergies ipratropium bromide 1 SPRAY spray,non-aerosol 2 spray NASAL DAILY calcium acetate(phosphat bind) 667 MG capsule 667 mg PO TID clonidine HCl 0.1 MG tablet 0.1 mg PO BID Patient Comments: high blood pressure Rx Instructions: dont take am dose until checking with nephrology loperamide 2 MG capsule 2 mg PO Q4H PRN PRN (Reason: Diarrhea) Qty: 20 0RF hydrocodone-acetaminophen 5-325 mg tablet 1 tab PO BID Patient Comments: TAKE ONE TABLET BY MOUTH TWO TIMES A DAY FOR 28 DAYS hydralazine 25 mg tablet 25 mg PO TID Patient Comments: TAKE 1 TABLET BY MOUTH EVERY 8 HOURS paroxetine HCl 20 mg tablet 20 mg PO DAILY Patient Comments: TAKE 1 TABLET BY MOUTH EVERY MORNING INCREASE TO ONE AND ONE HALF TABLET EVERY EVENING mag [id number] rt xt 1 EACH tablet 1 each PO DAILY acetaminophen 500 mg Tablet 1,000 mg PO TID PRN (Reason: LEG PAIN) lorazepam 0.5 mg tablet 0.5 mg PO DAILY Patient Comments: TAKE 1 TABLET BY MOUTH EVERY DAY IN THE MORNING [place] Caps 1 mg capsule 1 cap PO DAILY Patient Comments: TAKE 1 CAPSULE BY MOUTH EVERY DAY Chloraseptic Sore Throat 6-10 mg Lozenge 1 jama mucous membrane Q2H PRN PRN (Reason: SORE THROAT) Qty: 0 0RF guaifenesin [Mucus Relief ER] 600 mg Tablet Extended Release 12hr 600 mg PO BID Qty: 10 0RF [place] Nasal 0.65 % Aerosol,[place] 2 spray NASAL TID PRN PRN (Reason: NASAL DRYNESS) Qty: 0 0RF Primary Care Provider: Angel Casey Referrals: Angel Casey, [Primary Care Provider] - 1 Week if not improving Activity Restrictions/Additional Instructions: The rash along your left rib cage and chest wall is consistent with shingles which is causing your pain. Prednisone 40 mg a day for the next 10 days. Famvir for the shingles. Percocet for the pain. Follow-up with your doctor if not improving. Disposition Disposition: Home, Self Care
--- NOTE | 2023-03-17 12:00 | RAD_ITS ---
INDICATION: left lower rib pain. No trauma EXAMINATION/TECHNIQUE: X-RAY - XR Chest 2 Views COMPARISON: FINDINGS: LINES/DEVICES: None. LUNGS: No consolidation, edema or effusion. No pneumothorax. MEDIASTINUM AND CARDIOVASCULAR STRUCTURES: Cardiac silhouette not enlarged. Central airways and mediastinal contour are unremarkable. BONES AND SOFT TISSUES: Slight irregularity is noted in the left eighth rib posterolaterally appearing stable compared to October 04, 2018. Vertebroplasty is identified in the thoracic spine. RAD/Chest PA and Lateral IMPRESSION: No radiographic evidence of acute cardiopulmonary disease. Slight irregularity is noted in the left eighth rib posterolaterally appearing stable compared to October 04, 2018 Electronically Signed: Francisco Caraballo, at 12:15 EDT ,
== END 2023-03-17 13:19 | disposition home or self-care (01) ==
PROVIDERS: Emergency Provider Emergency Medicine; PCP Family Medicine; Visit Provider Emergency Medicine
DX: B02.9 Zoster without complications (principal); Z99.2 Dependence on renal dialysis; I12.0 Hypertensive chronic kidney disease with stage 5 chronic kidney disease or end stage renal disease; N18.6 End stage renal disease; R07.89 Other chest pain; Z79.899 Other long term (current) drug therapy; Z96.659 Presence of unspecified artificial knee joint; Z90.710 Acquired absence of both cervix and uterus
CPT/HCPCS: 71046; 99282